=== PATIENT | female | born 1970 | race African-American/Black ===

== ENCOUNTER 2017-06-05 06:53 | Outpatient (CLI) | payer MEDICARE, MEDICAID | END 2017-06-05 06:54 | disposition home or self-care (01) | LOC: BICULT 06:53 | PROVIDERS: ATTEND Family Medicine | DX: K76.0 Fatty (change of) liver, not elsewhere classified (principal); Z90.49 Acquired absence of other specified parts of digestive tract | CPT/HCPCS: 76705 ==

== ENCOUNTER 2017-08-20 09:53 | Emergency (ER) | payer MEDICARE, MEDICAID ==
[2017-08-20 10:35] LABS: #Eosinphils 0.1 thou/uL (0.0-0.7); #Lymphocytes 2.3 thou/uL (1.20-3.40); #Monocytes 0.4 thou/uL (0.11-0.59); #Neutrophils 3.3 thou/uL (1.40-6.50); %Basophils 0.3 % (0.0-1.0); %Eosinophils 1.8 % (0.0-10.0); %Lymphocytes 37.2 % (21.0-51.0); %Monocytes 6.5 % (0.0-10.0); %Neutrophils 54.1 % (42.0-75.0); Hemoglobin 12.8 g/dL (12.0-16.0); Mean Corpuscular HGB CONC 33.3 g/dL (32.0-36.0); Mean Corpuscular Hemoglobin 31.9 pg (27.0-31.0); Mean Corpuscular Volume 95.9 fl (81.0-99.0); Mean Platelet Volume 7.8 fL (7.4-10.4); Platelet Count 250 thou/uL (130-400); RBC Distribution Width 11.7 % (11.5-14.5); Red Blood Cell (RBC) Count 4.02 mill/uL (4.20-5.40); White Blood Cell (WBC) Count 6.1 thou/uL (4.8-10.8)
[2017-08-20 10:56] LABS: ALT (SGPT) 9 U/L (8-55); AST (SGOT) 18 U/L (5-34); Albumin 3.8 g/dL (3.5-5.0); Alkaline Phosphatase 93 U/L (40-150); Anion Gap 13 mmol/L (10-20); BUN (Urea Nitrogen) 7 mg/dL (7.0-18.7); Bilirubin, Total 1.4 mg/dL (0.2-1.2); CK (CPK) 268 U/L (29-168); Calc. Creatinine Clearance 0 mL/min (70-130); Calcium 9.2 mg/dL (7.8-10.44); Carbon Dioxide 20 mmol/L (22-29); Chloride 106 mmol/L (98-107); Estimated GFR-MDRD Greater than 90; Globulin 3.4 g/dL (2.4-3.5); Glucose 78 mg/dL (70-105); Protein, Total 7.2 g/dL (6.0-8.3); Sodium 135 mmol/L (136-145)
[2017-08-20 11:05] LABS: CKMB 0.8 ng/mL (0-6.6)
[2017-08-20 11:12] LABS: Troponin I Less than 0.010 ng/mL (< 0.028)
[2017-08-20] MEDS ORDERED: Ondansetron PF 4 MG/2 ML Vial ONE ×3 (12:06→13:11)
--- NOTE | 2017-08-20 12:13 | CT ---
CT OF THE BRAIN WITHOUT CONTRAST: INDICATION: Chest pain, headache, and weakness. COMPARISON: Prior exam dated 10/28/16. FINDINGS: No acute infarct, hemorrhage, or hydrocephalus is present. Septum pellucidum and third ventricle are midline. Mastoid air cells are clear. There is mild paranasal sinus disease within the ethmoid air cells which is stable to the prior exam. IMPRESSION: 1. No acute intracranial abnormality. 2. Stable mild paranasal sinus disease. POS: [facility]
[2017-08-20 13:37] LABS: Troponin I Less than 0.010 ng/mL (< 0.028)
[2017-08-20] MEDS ORDERED: diphenhydrAMINE 50 MG/ML VIAL ONE (14:07)
[2017-08-20] MEDS ORDERED: Ketorolac Tromethamine 30 MG/ML VIAL ONE (14:07)
[2017-08-20] MEDS ORDERED: Acetaminophen 500 MG TAB ONE (14:07)
--- NOTE | 2017-08-24 15:33 | EKG ---
Test Reason : CHEST PAIN Blood Pressure : / mmHG Vent. Rate : 056 BPM Atrial Rate : 056 BPM P-R Int : 166 ms QRS Dur : 074 ms QT Int : 396 ms P-R-T Axes : 022 001 008 degrees QTc Int : 382 ms Sinus bradycardia Otherwise normal ECG Confirmed by ONEIL PERERA ([id number]), newspaper copy editor DALE GALVIN ([id number]) on 08/24/2017 3:33:36 PM Referred By: DILMA Confirmed By:ONEIL PERERA
== END 2017-08-20 14:38 | disposition home or self-care (01) ==
LOC: ERS 09:53
DX: R51 Headache (principal); R07.9 Chest pain, unspecified; R11.2 Nausea with vomiting, unspecified; I10 Essential (primary) hypertension; E11.9 Type 2 diabetes mellitus without complications; K21.9 Gastro-esophageal reflux disease without esophagitis; F32.9 Major depressive disorder, single episode, unspecified; Z87.891 Personal history of nicotine dependence; Z79.82 Long term (current) use of aspirin; Z79.899 Other long term (current) drug therapy; Z86.73 Personal history of transient ischemic attack (TIA), and cerebral infarction without residual deficits
CPT/HCPCS: 36415; 70450; 80053; 82550; 82553; 84484; 85025; 85379; 93005; 94760; J1200; J1885; J2270; J2405

== ENCOUNTER 2017-11-29 08:48 | Outpatient (CLI) | payer MEDICARE, MEDICAID | END 2017-11-29 08:49 | disposition home or self-care (01) | LOC: BICMAMMO 08:48 | PROVIDERS: ATTEND Family Medicine | DX: Z12.31 Encounter for screening mammogram for malignant neoplasm of breast (principal) | CPT/HCPCS: 77063; 77067 ==

== ENCOUNTER 2018-01-21 14:39 | Emergency (ER) | payer MEDICAID, MEDICARE ==
[2018-01-21 15:51] LABS: #Basophils 0.1 thou/uL (0.0-0.2); #Eosinphils 0.1 thou/uL (0.0-0.7); #Lymphocytes 2.1 thou/uL (1.20-3.40); #Monocytes 0.4 thou/uL (0.11-0.59); #Neutrophils 3.5 thou/uL (1.40-6.50); %Basophils 1.3 % (0.0-1.0); %Eosinophils 2.2 % (0.0-10.0); %Lymphocytes 34.1 % (21.0-51.0); %Monocytes 6.6 % (0.0-10.0); %Neutrophils 55.9 % (42.0-75.0); Hemoglobin 12.9 g/dL (12.0-16.0); Mean Corpuscular HGB CONC 34.7 g/dL (32.0-36.0); Mean Platelet Volume 7.6 fL (7.4-10.4); Platelet Count 265 thou/uL (130-400); RBC Distribution Width 12.2 % (11.5-14.5); Red Blood Cell (RBC) Count 3.91 mill/uL (4.20-5.40); White Blood Cell (WBC) Count 6.3 thou/uL (4.8-10.8)
[2018-01-21 15:58] LABS: PTT 31.6 SEC (22.9-36.1); Prothrombin Time 13.5 SEC (12.0-14.7)
[2018-01-21 16:14] LABS: ALT (SGPT) 11 U/L (8-55); AST (SGOT) 17 U/L (5-34); Albumin 3.8 g/dL (3.5-5.0); Alkaline Phosphatase 92 U/L (40-150); Anion Gap 9 mmol/L (10-20); BUN (Urea Nitrogen) 9 mg/dL (7.0-18.7); Bilirubin, Total 0.7 mg/dL (0.2-1.2); Calc. Creatinine Clearance 0 mL/min (70-130); Calcium 9.2 mg/dL (7.8-10.44); Carbon Dioxide 23 mmol/L (22-29); Chloride 109 mmol/L (98-107); Estimated GFR-MDRD Greater than 90; Globulin 3.6 g/dL (2.4-3.5); Glucose 68 mg/dL (70-105); Potassium 4.3 mmol/L (3.5-5.1); Protein, Total 7.4 g/dL (6.0-8.3); Sodium 137 mmol/L (136-145)
--- NOTE | 2018-01-21 16:15 | CT ---
HEAD CT WITHOUT CONTRAST 01/21/18 COMPARISON: 08/20/17 HISTORY: Headache, nausea and dizziness. TECHNIQUE: Serial axial CT imaging obtained at 5 mm intervals from vertex through skull base without contrast. FINDINGS: There is no intracranial hemorrhage, midline shift, mass effect or ventricular enlargement . There is no displaced calvarial fracture. Stable cyst noted in the region of the pineal gland, unchanged when compared to multiple prior examin ations. IMPRESSION: No acute findings. POS: [facility]
[2018-01-21] MEDS ORDERED: Metoclopramide HCl 10 MG/2 ML VIAL ONE (16:32)
[2018-01-21] MEDS ORDERED: diphenhydrAMINE 12.5 MG/5 ML UDCUP ONE (16:32)
[2018-01-21] MEDS ORDERED: diphenhydrAMINE 50 MG/ML VIAL ONE (16:33)
[2018-01-21 18:20] LABS: Bilirubin Negative (Negative); Blood, Urine Negative (Negative); Clarity CLEAR (Clear); Glucose, Urine (Dipstick) Negative (Negative); Leukocyte Negative (Negative); Nitrite Negative (Negative); Protein, Urine (Dipstick) Negative (Neg-Trace); Specific Gravity, Urine 1.011 (1.002-1.036)
[2018-01-21 18:30] LABS: Amphetamine Not Detected (NotDetected); Barbiturates Screen Not Detected (NotDetected); Benzodiazepine Screen Not Detected (NotDetected); Cocaine Metabolite Screen Not Detected (NotDetected); Medtox Control Line Valid? VALID (VALID); Medtox Reader # READER 1; Methadone Not Detected (NotDetected); Methamphetamine Not Detected (NotDetected); Opiate Screen Not Detected (NotDetected); Oxycodone Screen Not Detected (NotDetected); Phencyclidine (PCP) Not Detected (NotDetected); THC/Cannabinoid Screen Not Detected (NotDetected); Tricyclic Screen Not Detected (NotDetected)
[2018-01-21] MEDS ORDERED: Ketorolac Tromethamine 30 MG/ML VIAL ONE (19:33)
== END 2018-01-21 19:55 | disposition home or self-care (01) ==
LOC: ERS 14:39
DX: R51 Headache (principal); Z86.73 Personal history of transient ischemic attack (TIA), and cerebral infarction without residual deficits; I10 Essential (primary) hypertension; E11.9 Type 2 diabetes mellitus without complications; K21.9 Gastro-esophageal reflux disease without esophagitis; F32.9 Major depressive disorder, single episode, unspecified; Z87.891 Personal history of nicotine dependence; Z79.899 Other long term (current) drug therapy; Z79.82 Long term (current) use of aspirin
CPT/HCPCS: 70450; 80053; 80306; 81003; 85025; 85610; 85730; 93005; 96361; 96374; 96375; J1200; J1885; J2765

== ENCOUNTER 2019-03-07 21:19 | Emergency (ER) | payer MEDICARE ==
[~2019-03-07 21:19] MED LIST: ISOVUE-370 76%-LOCM 1 ML ONE
[2019-03-07] MEDS ORDERED: Mag-Al 1200 mg/1200 mg/30 ML UDCUP ONE (22:03)
[2019-03-07] MEDS ORDERED: Lidocaine Viscous Sol 2% 15 ml UD Cup ONE (22:03)
[2019-03-07 22:06] LABS: #Basophils 0.1 thou/uL (0.0-0.2); #Eosinphils 0.2 thou/uL (0.0-0.7); #Monocytes 0.5 thou/uL (0.11-0.59); #Neutrophils 3.4 thou/uL (1.40-6.50); %Basophils 1.4 % (0.0-1.0); %Eosinophils 2.7 % (0.0-10.0); %Lymphocytes 41.7 % (21.0-51.0); %Monocytes 7.3 % (0.0-10.0); Hemoglobin 12.3 g/dL (12.0-16.0); Mean Corpuscular HGB CONC 34.5 g/dL (32.0-36.0); Mean Corpuscular Hemoglobin 32.4 pg (27.0-31.0); Mean Platelet Volume 7.8 fL (7.4-10.4); Platelet Count 291 thou/uL (130-400); RBC Distribution Width 12.1 % (11.5-14.5); White Blood Cell (WBC) Count 7.2 thou/uL (4.8-10.8)
--- NOTE | 2019-03-07 22:09 | RAD ---
XR Chest 1 View Portable HISTORY: Chest pain x3 days COMPARISON: 10/28/2016 study FINDINGS: Heart size and mediastinum are within normal limits. The lungs are clear of infiltrates. No significant bony findings. IMPRESSION: No active intrathoracic disease.
[2019-03-07 22:28] LABS: ALT (SGPT) 10 U/L (8-55); AST (SGOT) 18 U/L (5-34); Albumin 3.7 g/dL (3.5-5.0); Alkaline Phosphatase 84 U/L (40-150); Anion Gap 10 mmol/L (10-20); BUN (Urea Nitrogen) 10 mg/dL (7.0-18.7); Bilirubin, Total 0.6 mg/dL (0.2-1.2); Calc. Creatinine Clearance 0 mL/min (70-130); Carbon Dioxide 24 mmol/L (22-29); Chloride 104 mmol/L (98-107); Estimated GFR-MDRD Greater than 90; Globulin 3.4 g/dL (2.4-3.5); Glucose 92 mg/dL (70-105); Lipase 141 U/L (8-78); Potassium 4.1 mmol/L (3.5-5.1); Protein, Total 7.1 g/dL (6.0-8.3); Sodium 134 mmol/L (136-145)
[2019-03-07] MEDS ORDERED: Ondansetron PF 4 MG/2 ML Vial ONE (22:39)
[2019-03-07] MEDS ORDERED: Ketorolac Tromethamine 30 MG/ML VIAL ONE (23:20)
--- NOTE | 2019-03-07 23:22 | CT ---
CT Abdomen Pelvis W Con HISTORY: Abdominal pain chills. History of cholecystectomy hysterectomy appendectomy and gastric bypa ss. COMPARISON: 02/17/2015 exam. FINDINGS: The lung bases are clear of confluent infiltrates. There is atelectatic change present. The liver, spleen and pancreas regions appear unremarkable. This examination is obtained in more of a ny angiographic phase. The gallbladder is been removed. Gastric bypass changes are seen. Right and left adrenal glands and right and left kidneys are normal in appearance. There is no signif icant periaortic or mesenteric lymphadenopathy. CT of pelvis performed with contrast: Suggestion of some bladder wall thickening raising the possibil ity of a cystitis. Bladder is not well distended. There is no evidence of adenopathy or mass. No free fluid. IMPRESSION: Suggestion of some possible bladder wall thickening. Both gastric bypass and cholecystect iliana change.
== END 2019-03-07 23:51 | disposition home or self-care (01) ==
LOC: ERS 21:19
DX: R07.89 Other chest pain (principal); R10.13 Epigastric pain; R11.0 Nausea; K21.9 Gastro-esophageal reflux disease without esophagitis; I10 Essential (primary) hypertension; F32.9 Major depressive disorder, single episode, unspecified; Z86.73 Personal history of transient ischemic attack (TIA), and cerebral infarction without residual deficits
CPT/HCPCS: 71045; 74177; 80053; 83690; 84484; 85025; 93005; 96374; 96375; J1885; J2405; Q9966

== ENCOUNTER 2019-03-15 15:55 | Emergency (ER) | payer MEDICARE ==
--- NOTE | 2019-03-15 17:18 | RAD ---
RIGHT KNEE FOUR VIEWS: Date: 03-15-19 Comparison: None. History: Pain for one week. FINDINGS: No displaced fracture or dislocation. No significant knee joint effusion. IMPRESSION: No acute osseous abnormality. POS: [facility]
[2019-03-15] MEDS ORDERED: Ketorolac Tromethamine 60 MG/2 ML VIAL ONE (17:22)
[2019-03-15] MEDS ORDERED: Ondansetron ODT 4 MG TAB ONE (17:49)
--- NOTE | 2019-03-15 18:47 | ULT ---
RIGHT LOWER EXTREMITY VENOUS DOPPLER: Date: 03-15-19 Provided Clinical History: Pain. FINDINGS: Grayscale and color doppler sonography with spectral analysis was performed of the right common femor al, femoral, popliteal, posterior tibial, greater saphenous and profunda femoral veins demonstrating a normal sonographic appearance to each. IMPRESSION: No sonographic evidence for right lower extremity deep venous thrombosis. POS: [facility]
== END 2019-03-15 18:06 | disposition home or self-care (01) ==
LOC: ERS 15:55
DX: M79.661 Pain in right lower leg (principal); I10 Essential (primary) hypertension; E11.9 Type 2 diabetes mellitus without complications; K21.9 Gastro-esophageal reflux disease without esophagitis; F32.9 Major depressive disorder, single episode, unspecified; Z86.73 Personal history of transient ischemic attack (TIA), and cerebral infarction without residual deficits; Z79.82 Long term (current) use of aspirin
CPT/HCPCS: 96372; J1885; Q0162

== ENCOUNTER 2019-03-19 18:40 | Emergency (ER) | payer MEDICARE ==
[2019-03-19] MEDS ORDERED: Ondansetron ODT 4 MG TAB ONE (19:08)
[2019-03-19] MEDS ORDERED: HYDROcodone/Acetaminophen 5/325 mg Tablet ONE (19:44)
[2019-03-19] MEDS ORDERED: Ketorolac Tromethamine 30 MG/ML VIAL ONE (19:44)
--- NOTE | 2019-03-19 20:10 | RAD ---
Exam:Right knee 4 views HISTORY: Pain. Tightness. Erythema. History of blood clots. Swelling. COMPARISON: 03/15/2019 FINDINGS: No fracture. No cortical irregularity. No periosteal reaction. Joint spaces are preserved. No joint effusion. IMPRESSION: No acute osseous abnormalities. No significant interval change.
== END 2019-03-19 21:08 | disposition home or self-care (01) ==
LOC: ERS 18:40
DX: M25.561 Pain in right knee (principal); I10 Essential (primary) hypertension; E11.9 Type 2 diabetes mellitus without complications; K21.9 Gastro-esophageal reflux disease without esophagitis; F32.9 Major depressive disorder, single episode, unspecified; Z86.73 Personal history of transient ischemic attack (TIA), and cerebral infarction without residual deficits
CPT/HCPCS: 96372; J1885; Q0162

== ENCOUNTER 2019-03-21 20:18 | Observation (INO) | payer MEDICARE ==
[2019-03-21] MEDS ORDERED: Ondansetron PF 4 MG/2 ML Vial ONE (20:49)
[2019-03-21] MEDS ORDERED: Morphine 4 MG/ML VIAL ONE (20:49)
[2019-03-21 20:53] LABS: #Basophils 0.1 thou/uL (0.0-0.2); #Eosinphils 0.2 thou/uL (0.0-0.7); #Monocytes 0.5 thou/uL (0.11-0.59); %Basophils 1.2 % (0.0-1.0); %Eosinophils 2.8 % (0.0-10.0); %Lymphocytes 38.1 % (21.0-51.0); %Monocytes 6.8 % (0.0-10.0); %Neutrophils 51.2 % (42.0-75.0); Hemoglobin 11.6 g/dL (12.0-16.0); Mean Corpuscular Hemoglobin 31.5 pg (27.0-31.0); Mean Corpuscular Volume 92.7 fL (78.0-98.0); Mean Platelet Volume 7.7 fL (7.4-10.4); Platelet Count 287 thou/uL (130-400); RBC Distribution Width 12.1 % (11.5-14.5); Red Blood Cell (RBC) Count 3.69 mill/uL (4.20-5.40); White Blood Cell (WBC) Count 7.8 thou/uL (4.8-10.8)
--- NOTE | 2019-03-21 21:11 | RAD ---
XR Chest Pa Lat STANDARD HISTORY: Midsternal chest pain COMPARISON: 09/08/2014 study FINDINGS: Heart size and mediastinum are within normal limits. The lungs are clear of infiltrates. No bony findings. IMPRESSION: No active intrathoracic disease.
[2019-03-21 21:17] LABS: ALT (SGPT) 10 U/L (8-55); AST (SGOT) 18 U/L (5-34); Albumin 3.6 g/dL (3.5-5.0); Alkaline Phosphatase 77 U/L (40-110); Anion Gap 11 mmol/L (10-20); BUN (Urea Nitrogen) 12 mg/dL (7.0-18.7); Bilirubin, Total 0.4 mg/dL (0.2-1.2); Calc. Creatinine Clearance 0 mL/min (70-130); Calcium 8.8 mg/dL (7.8-10.44); Carbon Dioxide 21 mmol/L (22-29); Chloride 108 mmol/L (98-107); Estimated GFR-MDRD Greater than 90; Globulin 3.4 g/dL (2.4-3.5); Glucose 90 mg/dL (70-105); Lipase 171 U/L (8-78); Potassium 3.9 mmol/L (3.5-5.1); Sodium 136 mmol/L (136-145)
[2019-03-21] MEDS ORDERED: Nitroglycerin 2% Ointment 1 INCH/1 GM Packet ONE (21:32)
--- NOTE | 2019-03-21 21:34 | CT ---
CT Brain WO Con HISTORY: Fall with head injury. Headache. COMPARISON: 01/21/2018 study. FINDINGS: The ventricular and cisternal system is within normal limits. There are no signs of intrace rebral hemorrhage or extra-axial fluid collections. There is bilateral ethmoid air cell mucosal disease. IMPRESSION: No acute intracranial abnormalities.
[2019-03-21 21:39] LABS: Bacteria/HPF None Seen HPF (None Seen); Bilirubin Negative (Negative); Blood, Urine 1+ (Negative); Clarity Clear (Clear); Glucose, Urine (Dipstick) Normal (Negative); Leukocyte Negative Leu/uL (Negative); Nitrite Negative (Negative); Protein, Urine (Dipstick) Negative (Neg-Trace); RBC/HPF 0-3 HPF (0-3); Squamous Epithelial 0-3 HPF (0-3); Urobilinogen Normal mg/dL (Less than 2); WBC/HPF 0-3 HPF (0-3)
[2019-03-21 21:39] LABS: CKMB 1.3 ng/mL (0-6.6)
--- NOTE | 2019-03-21 22:13 | PDOC.FPRHP ---
- History of Present Illness Chief Complaint: Chest Pain History of Present Illness: Pt is a 49 yo female with PMH significant for labial BP's, HTN, HLD, GERD, Hemorrhagic stroke w/ R sided weakness, L sided facial droop, and MDD who presents for chest pain beginning at 1900 on 03/21/19. Pt is a poor historian. Pt states the pain was substernal, pressure in nature, no radiation, and alleviated with the nitro upon arrival to ED. She states pain was 15/10 then 6/ 10 with morphine. She was at rest when she felt the pain, became diaphoretic, and nauseated. Nausea did not alleviate with nitro,aspirin. She reports a pre- syncopal episode when standing from her couch. At this time EMS was called. Cardiac Hx: negative cardiac cath 2014, quit smoking 5 years ago She states she has had labial blood pressures with some recent blood pressures in the 200's/100's. But due to hypotensive episodes she states she no longer takes anti-hypertensives. She denies history of cardiac pathology. She did require a holter monitor which was WNL due to subjective palpitations. In the ED vitals were stable, EKG was WNL. Her trop was 0.031, CK-MB 1.3. Her chest pain alleviated but was still a 6/10 wit intervention although pt was laughing with family. She did have an pre-syncopal episode after receiving morphine. Head CT revealed no acute intracranial processes. - Allergies/Adverse Reactions Allergies Allergy/AdvReac Type Severity Reaction Status Date / Time amoxicillin Allergy Rash Verified 03/22/19 00:33 - Home Medications Medication Instructions Recorded Confirmed Type Aspirin Chewable [Aspirin Chewable 81 mg PO DAILY 05/24/13 03/22/19 History Tablet] Linaclotide [Linzess] 290 mcg PO DAILY 03/22/19 03/22/19 History Lisinopril 5 mg PO DAILY 03/22/19 03/22/19 History Polyethylene Glycol 3350 [Miralax] 17 gm PO DAILY PRN 03/22/19 03/22/19 History Sertraline HCl 25 mg PO DAILY 03/22/19 03/22/19 History busPIRone HCl [Buspirone HCl] 10 mg PO BID 03/22/19 03/22/19 History - History PMHx: Labial BP's, HTN, HLD, GERD, Hemorrhagic stroke w/ R sided weakness, L sided facial droop, and MDD, Colonoscopy 2014, EGD 2014, Neg Cardiac Cath 2014 PSHx: Appendectomy, Cholecystectomy, Gastric Sleeve, Hysterectomy FHx: Mother - cancer; Father - cancer, HTN, DM, Brother - esophageal cancer, hypothyroid Social: Quit smoking 5 years ago, drinks 6 pack of beer on weekends, denies drug use, lives with 13 yo daughter - Review of Systems General: denies: fever/chills, weight/appetite/sleep changes, night sweats, fatigue Eyes: denies: eye pain, vision changes ENT: denies: nasal congestion, rhinorrhea Respiratory: reports: shortness of breath. denies: cough, congestion Cardiovascular: reports: chest pain. denies: palpitation, edema, orthopnea Gastrointestinal: reports: nausea, constipation (Chronic miralax use), GI bleeding (hx of active hemorrhoids). denies: vomiting, diarrhea, abdominal pain Genitourinary: denies: incontinence, dysuria, polyuria Skin: denies: rashes, lesions, jaundice Musculoskeletal: reports: swelling. denies: pain, tenderness, arthritis/ arthralgias (Swelling in the R knee. Has an appt with ortho) Neurological: denies: numbness, seizure, weakness - Vital signs BP: [130/90] HR: [72] RR: [18] Tmax: [98.8] Pox: [97]% on [RA] Wt: [90.01 kg] - Physical Exam Constitutional: NAD, awake, alert and oriented, well developed -Constitutional: Pt is laughing with family at bedside. HEENT: normocephalic and atraumatic, EOMI Neck: FROM, trachea midline Heart: RRR, normal S1/S2, pulses present, no edema Lungs: CTAB, no respiratory distress, good air movement Abdomen: soft, non-tender, bowel sounds present, no masses/distention Musculoskeletal: normal structure, normal tone Neurological: no focal deficit (R sided weakness compared to L but 5/5 strength ; mild L sided facial droop) Skin: no rash/lesions -Skin: pale conjunctiva Heme/Lymphatic: no unusual bruising or bleeding, no purpura, no petechia Psychiatric: normal mood and affect FMR H&P: Results - Labs Result Diagrams: 03/22/19 02:26 03/22/19 02:26 Lab results: WBC 7.8 thou/uL (4.8-10.8) 03/21/19 20:31 Hgb 11.6 g/dL (12.0-16.0) L 03/21/19 20:31 Hct 34.2 % (36.0-47.0) L 03/21/19 20:31 MCV 92.7 fL (78.0-98.0) 03/21/19 20:31 Plt Count 287 thou/uL (130-400) 03/21/19 20:31 Neutrophils % 51.2 % (42.0-75.0) 03/21/19 20:31 Sodium 136 mmol/L (136-145) 03/21/19 20:31 Potassium 3.9 mmol/L (3.5-5.1) 03/21/19 20:31 Chloride 108 mmol/L (98-107) H 03/21/19 20:31 Carbon Dioxide 21 mmol/L (22-29) L 03/21/19 20:31 BUN 12 mg/dL (7.0-18.7) 03/21/19 20:31 Creatinine 0.74 mg/dL (0.6-1.1) 03/21/19 20:31 Glucose 90 mg/dL (70-105) 03/21/19 20:31 Calcium 8.8 mg/dL (7.8-10.44) 03/21/19 20:31 Total Bilirubin 0.4 mg/dL (0.2-1.2) 03/21/19 20:31 AST 18 U/L (5-34) 03/21/19 20:31 ALT 10 U/L (8-55) 03/21/19 20:31 Alkaline Phosphatase 77 U/L (40-110) 03/21/19 20:31 CK-MB (CK-2) 1.3 ng/mL (0-6.6) 03/21/19 20:31 Serum Total Protein 7.0 g/dL (6.0-8.3) 03/21/19 20:31 Albumin 3.6 g/dL (3.5-5.0) 03/21/19 20:31 Lipase 171 U/L (8-78) H 03/21/19 20:31 Urine Ketones Negative mg/dL (Negative) 03/21/19 21:19 Urine Blood 1+ (Negative) A 03/21/19 21:19 Urine Nitrite Negative (Negative) 03/21/19 21:19 Ur Leukocyte Esterase Negative Katie/uL (Negative) 03/21/19 21:19 Urine RBC 0-3 HPF (0-3) 03/21/19 21:19 Urine WBC 0-3 HPF (0-3) 03/21/19 21:19 Ur Squamous Epith Cells 0-3 HPF (0-3) 03/21/19 21:19 Urine Bacteria None Seen HPF (None Seen) 03/21/19 21:19 - EKG Interpretation EKG: EKG revealed NSR, no ST segment changes, T wave abnormalities. FMR H&P: A/P - Problem List (1) Chest pain Current Visit: Yes Status: Acute Code(s): R07.9 - CHEST PAIN, UNSPECIFIED (2) History of hypertension Current Visit: Yes Status: Acute Code(s): Z86.79 - PERSONAL HISTORY OF OTHER DISEASES OF THE CIRCULATORY SYSTEM (3) Depression Current Visit: Yes Status: Acute Code(s): F32.9 - MAJOR DEPRESSIVE DISORDER , SINGLE EPISODE, UNSPECIFIED (4) History of cerebrovascular accident (CVA) with residual deficit Current Visit: No Status: Chronic Code(s): I69.30 - UNSPECIFIED SEQUELAE OF CEREBRAL INFARCTION (5) GERD (gastroesophageal reflux disease) Current Visit: No Status: Acute Code(s): K21.9 - GASTRO-ESOPHAGEAL REFLUX DISEASE WITHOUT ESOPHAGITIS (6) Obesity (BMI 30-39.9) Current Visit: No Status: Chronic Code(s): E66.9 - OBESITY, UNSPECIFIED (7) Normocytic anemia Current Visit: Yes Status: Acute Code(s): D64.9 - ANEMIA, UNSPECIFIED - Plan Pt is a 49 yo female with PMH of Labial BP's, HTN, HLD, GERD, Hemorrhagic stroke w/ R sided weakness, L sided facial droop, and MDD presenting with chest pain, elevated troponin, concerning onset of symptoms and PMH. # Chest Pain # Elevated Troponin Atypical vs Typical - chest pain at rest, substernal pressure, alleviated with morphine/nitro/aspirin. She did become diaphoretic, nauseated. Although pt has compelling history on exam pt did not appear to be under any distress, clinically stable, laughing w/ family at bedside. Pt described episode of pre- syncope. Pt has hx of labial blood pressure but WNL in emergency department w/ o anti-hypertensives. Pt cardiac cath in 2014 revealed no significant CAD. Hx of GERD requiring gastric sleeve. Hx of smoking - quit 5 years ago. Trop 0.031 mildly elevated 1 hour after initial chest pain, CK-MB WNL, EKG WNL. - trend trops - Cards consult in morning, appreciate recs. Will consult cardiology tonight if pt has acute elevation in trops - Stress test scheduled for morning - Echo pending - aspirin administered, give daily - Lipid panel pending # HTN Pt does not take BP meds. States she discontinued due to hypotensive episodes but has BP's 200's/100's. In Jul 2018 pt was started on Lisinopril 5 mg for an episode of elevated BP's noted at home 200's/100's, but were WNL at urgent clinic. Pt's BP readings in [facility] clinic have been WNL. - Vitals stable in ED - consider restarting BP meds if necessary before discharge. Pt currently has morphine prn for pain. # GERD Hx of gastric sleeve - no currently taking medication # Depression/Anxiety - continue home meds # Constipation - continue miralax # Hemorroids Pt states she has bright red blood per rectum. Worked up by GI within last year w/ colonoscopy which revealed hemorroids. She states burning sensation with BM's even if BM is liquid. - work up as outpt if pt continues to describe pain - Hgb 11.6 # Normocytic Anemia Hgb 11.6 - consider outpt workup # Elevated Lipase Lipase 170, elevated on previous visit. Pt denies abdominal pain, epigastric tenderness. Hx of gastric sleeve, cholecystectomy. Hx of pancreatitis. - no intervention at this time # Hx of CVA x 2, hemorrhagic stroke w/ R sided weakness, L sided facial droop Pt strength 5/5 bilaterally w/ mild decrease in strength on R side. - no acute changes per pt # R Knee Pain Pt is scheduled to be seen by ortho Diet: NPO midnight Fluids: None VTE Prophylaxis: lovenox Code Status: Full Dispo: Stable, admit pt to tele obs for ACS r/o. FMR H&P: Upper Level - Pertinent history 49 yo F w/ PMH of HTN, HLD, anxiety/MDD, GERD, h/o hemorrhagic CVA w/ rt sided residual deficits, prior tobacco abuse, h/o gastric sleeve, chronic headaches and prior episodes of atypical chest pain presented to [facility] for cc of cp. She is an extremely poor historian. Pt reports cp is left side of chest, pressure like in nature and associated with some sweating and nausea. Pain started at approx 1930 when pt was sitting on couch facetiming a family member. She reports her symptoms improved slightly with aspirin and nitro. No exacerbating symptoms. There is no radiation of pain. Of note, pt had similar symptoms in the past and nearly identical CC and history on office visit 08/21/2018 at which time she was sent to ER via ambulance for further evaluation. She is unsure of workup. If she or family can recall any workup I have requested those records. Additionally, pt had cardiac cath in 2014 after false positive nuc med study and was found to have entirely clean coronaries. She had a noted EF of 55-60% at that time. She frequently reports elevated BPs of up to 295/175; however, she has been normotensive or had low BPs in our clinic records dating all the way back to 2013. She also had urine metanephrine studies which were negative. On exam pt is sitting in bed comfortably and in no acute distress. - Pertinent findings ROS: As above PE: VS: Reviewed and WNL EKG: NSR w/o st or t wave changes. No q waves. Gen: NAD resting comfortably in bed. Laughing with family members present at bedside. Normal skin tone and color. No diaphoresis or any evidence of acute distress. HEENT: NCAT CV: RRR No mrg Resp: Cta b/l Abd: Soft NTND bsx4 Neuro: Chronic changes, no new focal deficit MSK: No reproducible chest tenderness to palpation Ext: No clubbing cyanosis or edema, Pulses 2+ throughout - Plan Date/Time: 03/21/192211 IDusty DO, have evaluated this patient and agree with findings/ plan as outlined by legal summer intern resident. Pertinent changes/additions are listed here. 1) Atypical chest pain: - pt initial troponin indeterminate, repeat indeterminate - will admit to tele obs and trend - AM stress and echo, consider cardiology consult as pt has significant risk factors - nitro prn for cp as well as morphine - differential includes ACS, vasospasm, takosubo CM, CM and numerous noncardiac causes. 2) GERD: h/o - pt reports pain is different from prior GERD pain - cont home medications 3) Elevated lipase: - has been elevated in past and thought to be 2/2 chronic gerd - asympotmatic on exam - rx for GERD and consider imaging if pt becomes symptomatic 4) Depression: -MDD, cont home medications 5) h/o CVA - no new deficits - no active bleed - ct head negative PCP: [facility] PPX: Lovenox Dispo: Stable, will admit to tele obs and trend troponins. Cont cardiac workup. Addendum - Attending - Attending Attestation Date/Time: 03/22/19 0705 I personally evaluated the patient and discussed the management with Dr. Thomson /Ada. I agree with the History, Examination, Assessment and Plan documented above with any addition or exceptions noted below. Patient here with chest pain, pressure, and nausea that began yesterday. Her cardiac enzymes are indeterminate and her EKG is normal. Will plan for stress testing today and further mgmt per that result.
[2019-03-21 23:39] LABS: Troponin I 0.059 ng/mL (< 0.028)
[2019-03-22] MEDS ORDERED: Acetaminophen 325 MG TAB PO PRN (00:28)
[2019-03-22 00:37] VITALS: BMI 38.7
[2019-03-22] MEDS: Morphine 4 MG/ML VIAL SLOW IVP PRN ×2 (00:46→06:49)
[2019-03-22] MEDS ORDERED: Lidocaine 2% Viscous Solution 10 ML, Aluminum & Magnesium Hydroxide 30 ML SSW SCH (01:30)
[2019-03-22 02:38] LABS: #Basophils 0.1 thou/uL (0.0-0.2); #Eosinphils 0.2 thou/uL (0.0-0.7); #Lymphocytes 2.5 thou/uL (1.20-3.40); #Monocytes 0.5 thou/uL (0.11-0.59); #Neutrophils 3.3 thou/uL (1.40-6.50); %Basophils 1.2 % (0.0-1.0); %Eosinophils 3.4 % (0.0-10.0); %Lymphocytes 38.7 % (21.0-51.0); %Neutrophils 49.7 % (42.0-75.0); Mean Corpuscular HGB CONC 33.4 g/dL (32.0-36.0); Mean Corpuscular Hemoglobin 31.7 pg (27.0-31.0); Mean Corpuscular Volume 94.9 fL (78.0-98.0); Mean Platelet Volume 7.7 fL (7.4-10.4); Platelet Count 267 thou/uL (130-400); RBC Distribution Width 12.2 % (11.5-14.5); Red Blood Cell (RBC) Count 3.79 mill/uL (4.20-5.40); White Blood Cell (WBC) Count 6.6 thou/uL (4.8-10.8)
[2019-03-22] MEDS ORDERED: Polyethylene Glycol 3350 17 GM Packet PO PRN (02:42)
[2019-03-22 03:31] LABS: Anion Gap 12 mmol/L (10-20); BUN (Urea Nitrogen) 11 mg/dL (7.0-18.7); Calc. Creatinine Clearance 130 mL/min (70-130); Calcium 8.7 mg/dL (7.8-10.44); Carbon Dioxide 21 mmol/L (22-29); Cardiac Risk 2.1 (Less than 4.5); Chloride 106 mmol/L (98-107); Cholesterol 188 mg/dl (< 200 Desired); Estimated GFR-MDRD Greater than 90; Glucose 88 mg/dL (70-105); HDL Cholesterol 89 mg/dL (>60 Neg Risk); LDL Cholesterol, Calculated 89 mg/dL; Potassium 3.6 mmol/L (3.5-5.1); Sodium 135 mmol/L (136-145); Triglycerides 52 mg/dL (Less than 150)
[2019-03-22 03:34] LABS: Troponin I 0.012 ng/mL (< 0.028)
[2019-03-22] MEDS: Ondansetron PF 4 MG/2 ML Vial SLOW IVP PRN ×3 (05:19→14:33)
[2019-03-22] MEDS: Nitroglycerin 2% Ointment 1 INCH/1 GM Packet TOP SCH ×3 (05:30→21:27)
[2019-03-22] MEDS ORDERED: Ondansetron PF 4 MG/2 ML Vial IVP SCH (07:30)
[2019-03-22] MEDS: Enoxaparin Sodium 40 MG/0.4 ML SYRINGE SC SCH (08:17)
[2019-03-22] MEDS: Famotidine 20 MG TAB PO SCH ×2 (09:00→21:28)
[2019-03-22] MEDS ORDERED: Non-Formulary Item 1 EACH (Linaclotide [Linzess] 290 MCG) PO SCH (09:00)
[2019-03-22] MEDS ORDERED: Regadenoson 0.4 MG/5 ML SYRINGE ONE (09:06)
[2019-03-22] MEDS: busPIRone HCl 10 MG TAB PO SCH ×2 (14:32→21:29)
[2019-03-22] MEDS: Aspirin 325 mg Enteric Coated Tablet PO SCH (14:32)
[2019-03-22] MEDS ORDERED: Ketorolac Tromethamine 30 MG/ML VIAL IVP PRN (16:32)
[2019-03-22] MEDS ORDERED: diphenhydrAMINE 50 MG/ML VIAL IVP SCH (17:15)
[2019-03-22] MEDS: Metoclopramide HCl 10 MG/2 ML VIAL IVP PRN (21:30)
[2019-03-23 05:30] LABS: #Basophils 0.1 thou/uL (0.0-0.2); #Eosinphils 0.2 thou/uL (0.0-0.7); #Lymphocytes 1.8 thou/uL (1.20-3.40); #Monocytes 0.4 thou/uL (0.11-0.59); #Neutrophils 2.3 thou/uL (1.40-6.50); %Basophils 1.2 % (0.0-1.0); %Eosinophils 4.3 % (0.0-10.0); %Lymphocytes 37.8 % (21.0-51.0); %Monocytes 8.8 % (0.0-10.0); %Neutrophils 47.9 % (42.0-75.0); Hemoglobin 11.2 g/dL (12.0-16.0); Mean Corpuscular HGB CONC 33.5 g/dL (32.0-36.0); Mean Corpuscular Hemoglobin 31.4 pg (27.0-31.0); Mean Corpuscular Volume 93.8 fL (78.0-98.0); Platelet Count 262 thou/uL (130-400); RBC Distribution Width 12.2 % (11.5-14.5); Red Blood Cell (RBC) Count 3.56 mill/uL (4.20-5.40); White Blood Cell (WBC) Count 4.8 thou/uL (4.8-10.8)
[2019-03-23] MEDS: Nitroglycerin 2% Ointment 1 INCH/1 GM Packet TOP SCH (06:00)
[2019-03-23 06:03] LABS: Anion Gap 8 mmol/L (10-20); BUN (Urea Nitrogen) 9 mg/dL (7.0-18.7); Calc. Creatinine Clearance 138 mL/min (70-130); Calcium 8.4 mg/dL (7.8-10.44); Carbon Dioxide 25 mmol/L (22-29); Chloride 106 mmol/L (98-107); Estimated GFR-MDRD Greater than 90; Glucose 85 mg/dL (70-105); Potassium 3.8 mmol/L (3.5-5.1); Sodium 135 mmol/L (136-145)
--- NOTE | 2019-03-23 06:04 | PDOC.FM ---
- Subjective Subjective: Tele monitoring overnight: no acute events. NSR 60-80's. Pt denies any current chest pain, SOB, or diaphoresis. Pt does not c/o nausea this morning. Awaiting second part of stress testing. - Objective MAR Reviewed: Yes Vital Signs & Weight: Vital Signs (12 hours) Temp Pulse Resp BP Pulse Ox 03/23/19 03:30 97.2 F L 61 16 124/58 L 98 03/22/19 21:26 98.3 F 68 17 109/56 L 96 Weight Weight 89.811 kg I&O: 03/21/19 03/22/19 03/23/19 06:59 06:59 06:59 Intake Total 220 1040 Output Total 700 Balance 220 340 Result Diagrams: 03/23/19 04:15 03/23/19 04:15 Phys Exam - Physical Examination Constitutional: NAD HEENT: PERRLA, moist MMs, sclera anicteric Neck: no nodes, no JVD, supple, full ROM Respiratory: no wheezing, no rales, no rhonchi, clear to auscultation bilateral Cardiovascular: RRR, no significant murmur, no rub Gastrointestinal: soft, non-tender, no distention, positive bowel sounds Musculoskeletal: no edema, pulses present Neurological: normal sensation, moves all 4 limbs residual L-sided facial droop from previous CVA. Strength 5/5 in all ext. Psychiatric: normal affect, A&O x 3 Skin: no rash, normal turgor, cap refill <2 seconds Dx/Plan (1) Atypical chest pain Code(s): R07.89 - OTHER CHEST PAIN Status: Acute (2) Depression Code(s): F32.9 - MAJOR DEPRESSIVE DISORDER, SINGLE EPISODE, UNSPECIFIED Status : Acute (3) History of hypertension Code(s): Z86.79 - PERSONAL HISTORY OF OTHER DISEASES OF THE CIRCULATORY SYSTEM Status: Acute (4) GERD (gastroesophageal reflux disease) Code(s): K21.9 - GASTRO-ESOPHAGEAL REFLUX DISEASE WITHOUT ESOPHAGITIS Status: Acute (5) History of cerebrovascular accident (CVA) with residual deficit Code(s): I69.30 - UNSPECIFIED SEQUELAE OF CEREBRAL INFARCTION Status: Chronic (6) Obesity (BMI 30-39.9) Code(s): E66.9 - OBESITY, UNSPECIFIED Status: Chronic (7) Status post bariatric surgery Status: Chronic - Plan Plan: Pt is a 49 yo female with PMH of labile BP's, HTN, HLD, GERD, Hemorrhagic stroke w/ R sided weakness, L sided facial droop, and MDD presenting with chest pain, elevated troponin, concerning onset of symptoms and PMH. 1. Atypical Chest Pain, with Elevated Troponin - Atypical chest pain vs GERD symptoms at rest, substernal pressure, alleviated with morphine/nitro/aspirin. She did become diaphoretic, nauseated. Although pt has compelling history on exam pt did not appear to be under any distress, clinically stable, laughing w/ family at bedside. Pt described episode of pre- syncope. Pt has hx of labile blood pressure but WNL in emergency department w/ o anti-hypertensives. - Pt cardiac cath in 2014 revealed no significant CAD. Hx of GERD requiring gastric sleeve. Hx of smoking - quit 5 years ago. - Trop 0.031--> 0.059--> 0.012--> 0.016, CK-MB WNL, EKG WNL. - Stress test, 2 days - Echo: EF 60-65%, Grade 2/3 diastolic dysfunction. No wall motion abnormalities. - ASA daily - Lipid panel: Tri 52, T Chol 188, LDL 89, HDH 89 2. HTN - Pt does not take BP meds. States she discontinued due to hypotensive episodes but has BP's 200's/100's. In Jul 2018 pt was started on Lisinopril 5 mg for an episode of elevated BP's noted at home 200's/100's, but were WNL at urgent clinic. Pt's BP readings in [facility] have been WNL. - Vitals stable in ED - consider restarting BP meds if necessary before discharge. Will hold for now. 3. GERD - Hx of gastric sleeve - not currently taking medication - Added pepcid 4. Depression/Anxiety - continue home meds 5. Constipation - continue miralax 6. Hemorroids - Pt states she has bright red blood per rectum. Worked up by GI within last year w/ colonoscopy which revealed hemorroids. She states burning sensation with BM's even if BM is liquid. - work up as outpt if pt continues to describe pain - Hgb 11.6 7. Normocytic Anemia - Hgb 11.6 - consider outpt workup 8. Elevated Lipase Lipase 170, elevated on previous visit. Pt denies abdominal pain, epigastric tenderness. Hx of gastric sleeve, cholecystectomy. Hx of pancreatitis. - no intervention at this time 9. Hx of CVA x 2, hemorrhagic stroke w/ R sided weakness, L sided facial droop - Pt strength 5/5 bilaterally w/ mild decrease in strength on R side. - no acute changes per pt 10. R Knee Pain Pt is scheduled to be seen by ortho Diet: HH Fluids: None VTE Prophylaxis: lovenox Code Status: Full Dispo: Stable, tele obs for ACS r/o. Addendum - Attending - Attending Attestation Date/Time: 03/23/19 1015 I personally evaluated the patient and discussed the management with Dr. Escobar. I agree with the History, Examination, Assessment and Plan documented above with any addition or exceptions noted below. Pt's stress test shows reversible ischemia. Consulting cardiology for further recommendations.
--- NOTE | 2019-03-23 09:06 | NM ---
EXAM: NM Cardiac Stress W EF WF PROVIDED CLINICAL HISTORY: Chest pain. History of CVA and hypertension. COMPARISON: 09/10/2014 FINDINGS: This examination was performed as a pharmacologic myocardial stress test after the administration of Lexiscan, the. There is a small area of mildly diminished uptake of radiotracer seen within the distal inferolateral left ventricular wall on the stress acquisition demonstrating mild reversibility on resting acquisition. Quantitative analysis also demonstrates suggestion of a reversible defect in the inferol ateral left ventricular wall. Gated images demonstrate normal ventricular wall motion and wall thickening. The calculated left ventricular ejection fraction is 83%. Calculated left ventricular eje ction fraction on the prior study was 64%. IMPRESSION: 1. Abnormal myocardial perfusion study with a mild reversible defect involving the distal inferolater al left ventricular wall suggesting ischemia. 2. Normal LVEF of 83%.
[2019-03-23] MEDS ORDERED: Nitroglycerin 4.9 GM Bottle SL PRN (09:45)
[2019-03-23] MEDS: Aspirin 325 mg Enteric Coated Tablet PO SCH (10:01)
[2019-03-23] MEDS: busPIRone HCl 10 MG TAB PO SCH (10:01)
[2019-03-23] MEDS: Metoclopramide HCl 10 MG/2 ML VIAL IVP PRN (10:02)
[2019-03-23] MEDS: Famotidine 20 MG TAB PO SCH (10:02)
[2019-03-23] MEDS: Enoxaparin Sodium 40 MG/0.4 ML SYRINGE SC SCH (10:02)
[2019-03-23 12:51] VITALS: BP 100/61; TEMP 98.1
--- NOTE | 2019-03-23 13:16 | CON ---
DATE OF CONSULTATION: 03/23/2019 INDICATION FOR CONSULTATION: A 49-year-old female with chest pain. HISTORY OF PRESENT ILLNESS: This 49-year-old female, who had a stress test in 2014 due to chest pain and this had been her second admission at that time, for which she then underwent stress testing, was found to have an abnormal stress test, and then, underwent cardiac catheterization, was found to have absolutely normal coronary arteries, not any plaque or anything, with normal-sized arteries. She does have a history of hypertension apparently and has not been taking medications at home. She said the blood pressures at home have been elevated, but according to the resident, her blood pressure in the clinic has been normal, and also here in the hospital, blood pressure remains normal. Her enzymes are negative for myocardial infarction. EKG when she arrived to the emergency room complaining of pain was still normal with no EKG changes. She apparently is disabled after having some type of strokes in the past. She said she has had some hemorrhagic strokes, but I do not see any significant indication on the images that I have been reviewing on the medical records that there was any significant stroke encountered in the past and she does seem to be pretty mobile. She has not had any disabling at this time CVA symptoms. She said she was sitting at home talking to somebody on the phone when she developed sudden a chest pain, and then, she said it became so intense. She tried to get up and walk it off. She really thought it was her reflux, but when she got up to try to walk around, she said she fell down because the pain was so bad. She did take some Tums, there was no relief, and then, 911 was called and she presented to the emergency room, and since that time, has undergone further evaluation. Stress testing at this time showed evidence of mild reversible ischemia in the distal inferolateral wall, somewhat similar to the same area that she had an abnormal stress test in 2014. In the interim, she has actually undergone a gastric sleeve procedure. She has had some type of procedure she says for her reflux. She has had the CVAs. She has constipation and hemorrhoids. Otherwise, she has been doing quite well, except she says her blood pressure has been poorly controlled at home. She said the blood pressure is extremely elevated and she is not taking any medications. PAST MEDICAL HISTORY: Significant for the gastric sleeve procedure, what she says is a CVA x1, and then, a TIA x1. She has constipation, hemorrhoids. She has had a cardiac catheterization. She has a history of hypertension. She has history of depression, obesity, and some anemia. REVIEW OF SYSTEMS: A 12-point review of systems is unremarkable. She occasionally says she has some blurred vision. She has occasional constipation, occasional nausea, and she says she has some weakness on the right side. She also has right knee pain. FAMILY HISTORY: Noncontributory. ALLERGIES: THERE WERE NO ALLERGIES KNOWN. MEDICATIONS: At this time include, 1. Tylenol. 2. MiraLAX. 3. Zofran. 4. 325 mg aspirin. 5. BuSpar. 6. DVT prophylaxis with Lovenox. 7. Pepcid. 8. Zoloft. 9. Reglan. 10. Benadryl as needed. 11. Nitroglycerin also p.r.n. PHYSICAL EXAMINATION: GENERAL: Reveals a well-developed, well-nourished, obese female. VITAL SIGNS: Her blood pressure is 110/73, heart rate is 63 and regular. She is afebrile. Respiratory rate is 18. HEENT: Shows the head to be normocephalic and atraumatic. NECK: Carotid pulses are present. There are no bruits. CHEST: Clear to auscultation without rales, rhonchi, or wheezing. CARDIOVASCULAR: Reveals a regular rate and rhythm. Normal S1, S2. There is no S3, S4. There are no significant murmurs, heaves, thrills, bruits, or rubs. ABDOMEN: Shows obesity with positive bowel sounds. Well-healed surgical incisions are noted. EXTREMITIES: Showed no clubbing, cyanosis, or edema. Pedal pulses are present. Popliteal pulses are present, and radial pulse also is present. NEUROLOGICAL: There are no gross focal motor deficits that I could elicit. She may have some mild weakness; however, I do not find anything gross. She is able to ambulate. LABORATORY DATA: Shows a potassium of 3.8, sodium was 135, BUN was 9 with a creatinine of 0.7. Blood sugar was 85. LDL was 89. Hemoglobin was 11.7, WBC of 4.8, and platelet count of 262,000. IMAGING STUDIES: EKG is unremarkable, which shows a normal sinus rhythm with no acute changes. Stress test is as noted above. IMPRESSION: 1. Middle-aged female with chest pain, some risk factors of coronary artery disease, who underwent a cardiac catheterization 4.5 half years ago for very similar symptoms and was found to have normal coronary arteries. At this time, since her enzymes remained negative, her EKG is unremarkable, and she has a negative cardiac catheterization 4.5 years ago, I would suggest that we continue to follow her and treat her medically, control the blood pressure and continue to monitor her as an outpatient. However, at this time, I do not see an indication to proceed with cardiac catheterization. 2. History of hypertension. I do not see any significant elevation of the blood pressure, and according to the residence, there has been no significant elevation of the blood pressure when she has been in the clinic, and we will continue to monitor this also. She may not need any blood pressure medications or at least a low dose of perhaps amlodipine or even a beta-iman, but the heart rate also has not been elevated and her heart rate has been in the 60s, so beta-blockers will not be a good choice for this lady, but perhaps a low dose of lisinopril or amlodipine if indicated. We suggest that she check her blood pressure cuff and bring that to the clinic when she is seen by the Family Practice to see whether or not she has an accurate blood pressure cuff and to see whether or not she can monitor her blood pressure at home. Thank you very much for the consultation of this lady. I will be more than happy to see her in the future, should she have any further problems. However, at this time, I believe she can follow up with her primary care physician, but if further issues arise, we will be more than happy to see her. Job ID: [id number]
--- NOTE | 2019-03-24 03:24 | DIS ---
DATE OF ADMISSION: 03/21/2019 DATE OF DISCHARGE: 03/23/2019 RESIDENT: Luz Escobar DO ADMITTING ATTENDING: Jasson Lew MD DISCHARGE ATTENDING: Dr. Mares CONSULTS: Cardiology, Dr. Walden, who cleared the patient for discharge as she thinks this is noncardiac in character. PROCEDURES PERFORMED: Nuclear medicine stress test showed a mild reversible defect distal to the inferior lateral left ventricular wall with EF of 83%. Dr. Walden cleared the patient for discharge. DIAGNOSES: 1. Atypical chest pain. 2. Hypertension. 3. Gastroesophageal reflux disease. 4. Depression/anxiety. 5. Constipation. 6. Hemorrhoids. 7. Normocytic anemia. 8. Elevated lactate. 9. History of cerebrovascular accident x2, hemorrhagic stroke with residual right-sided weakness and left facial droop. 10. Right knee pain. DISCHARGE MEDICATIONS: 1. Acetaminophen 650 mg p.o. q.4 hours p.r.n. for pain. 2. Aspirin 81 mg daily. 3. Buspirone 10 mg p.o. daily. 4. Pepcid 20 mg p.o. b.i.d. p.r.n. 5. Linzess 290 mcg p.o. daily. 6. Lisinopril 5 mg p.o. daily. 7. MiraLAX 17 g p.o. daily. 8. Sertraline 25 mg p.o. daily. HISTORY OF PRESENT ILLNESS/HOSPITAL COURSE: Ms. Andino is a 49-year-old female, who came in with chest pain. She underwent a nuclear medicine stress test and an echocardiogram. The transthoracic echo showed EF of 60% to 65% with grade 2/3 diastolic dysfunction. Stress test showed mild reversible defect distal to the inferior lateral left ventricular wall secondary to most likely ischemia, but the EF of 83%. Dr. Walden saw the patient in hospital saying that this is similar to the workup done in 2015, which led to them to do a catheterization. The catheterization was negative. She just want to followup outpatient in 3 to 4 weeks. The patient was stable. Chest pain gradually lessened and now is not present on discharge. DISPOSITION: Stable to home with alleviation of chest pain symptoms. DISCHARGE INSTRUCTIONS: 1. Location: Home. 2. Diet: Heart healthy. 3. Activity: As tolerated. 4. Followup: Follow up with primary care [facility] in 1 week time for blood pressure recheck. The patient was discharged on lisinopril 5 mg. Follow up with Dr. Walden in 3 to 4 weeks, cardiology. Job ID: [id number] [facility] HEALTHSanam
--- NOTE | 2019-03-28 12:16 | EKG ---
Test Reason : Blood Pressure : / mmHG Vent. Rate : 073 BPM Atrial Rate : 073 BPM P-R Int : 170 ms QRS Dur : 076 ms QT Int : 386 ms P-R-T Axes : 060 003 022 degrees QTc Int : 425 ms Normal sinus rhythm Normal ECG Confirmed by MIKEY MURPHY MD ([id number]), newspaper editor managing TYLOR KENNEDY ([id number]) on 03/28/2019 12:16:29 PM Referred By: Confirmed By:MIKEY MURPHY MD
--- NOTE | 2019-03-30 07:58 | EKG ---
Test Reason : MCNIGHT Blood Pressure : / mmHG Vent. Rate : 058 BPM Atrial Rate : 058 BPM P-R Int : 176 ms QRS Dur : 078 ms QT Int : 416 ms P-R-T Axes : 023 005 004 degrees QTc Int : 408 ms Sinus bradycardia Low voltage QRS Borderline ECG When compared with ECG of 21-MAR-2019 20:26, (Unconfirmed) Nonspecific T wave abnormality now evident in Anterior leads Confirmed by GERARD PASCUAL ([id number]) on 03/30/2019 7:58:21 AM Referred By: VENU Confirmed By:GERARD PASCUAL
== END 2019-03-23 14:48 | disposition home or self-care (01) ==
LOC: ERS 20:18 → INTOOBSV 21:55 → 2NO 21:55 → INTOOBSV 03-22 17:05 → OBSVTOIN 03-22 17:05
PROVIDERS: ADMIT Student in an Organized Health Care Education/Training Program; ATTEND Student in an Organized Health Care Education/Training Program
DX: R07.89 Other chest pain (principal); I10 Essential (primary) hypertension; K21.9 Gastro-esophageal reflux disease without esophagitis; F32.9 Major depressive disorder, single episode, unspecified; F41.9 Anxiety disorder, unspecified; E78.5 Hyperlipidemia, unspecified; K59.00 Constipation, unspecified; K64.9 Unspecified hemorrhoids; D64.9 Anemia, unspecified; M25.561 Pain in right knee; I69.351 Hemiplegia and hemiparesis following cerebral infarction affecting right dominant side; I69.392 Facial weakness following cerebral infarction; E66.9 Obesity, unspecified; Z68.38 Body mass index [BMI] 38.0-38.9, adult; Z87.891 Personal history of nicotine dependence; Z79.82 Long term (current) use of aspirin; Z79.899 Other long term (current) drug therapy; Z88.0 Allergy status to penicillin; Z98.84 Bariatric surgery status
CPT/HCPCS: 70450; 71046; 78452; 80048 ×2; 80053; 80061; 82553; 83690; 83880; 84443; 84484 ×4; 85025 ×3; 93005 ×2; 93017; 93306; 94760; 96372; 96374; 96375 ×2; 96376; 99285; A9500; G0378 ×2; 36415; 81003; 81015; 93010; J1650; J1885; J2270; J2405; J2765; J2785

== ENCOUNTER 2019-05-17 10:58 | Emergency (ER) | payer MEDICARE, MEDICAID ==
[2019-05-17] MEDS ORDERED: Ketorolac Tromethamine 30 MG/ML VIAL ONE (11:59)
[2019-05-17] MEDS ORDERED: Acetaminophen 500 MG TAB ONE (11:59)
--- NOTE | 2019-05-17 12:05 | RAD ---
4 views right knee: 05/17/2019 COMPARISON: 03/19/2019 HISTORY: Right knee pain for 2 months FINDINGS: No fracture or dislocation. No radiopaque foreign body or subcutaneous gas. IMPRESSION: No acute findings.
== END 2019-05-17 13:13 | disposition home or self-care (01) ==
LOC: ERS 10:58
DX: M25.561 Pain in right knee (principal); Z86.73 Personal history of transient ischemic attack (TIA), and cerebral infarction without residual deficits; I10 Essential (primary) hypertension; E11.9 Type 2 diabetes mellitus without complications; K21.9 Gastro-esophageal reflux disease without esophagitis; Z79.899 Other long term (current) drug therapy; Z79.82 Long term (current) use of aspirin
CPT/HCPCS: 96372; J1885

== ENCOUNTER 2019-06-20 08:57 | Emergency (ER) | payer MEDICARE, MEDICAID ==
--- NOTE | 2019-06-20 09:30 | RAD ---
EXAM: 4 views of the right knee HISTORY: Chronic knee swelling COMPARISON: None FINDINGS: No knee effusion is seen. There is no evidence of acute fracture or dislocation. No signifi cant degenerative changes are seen. No soft tissue swelling is present. IMPRESSION: No evidence of acute osseous abnormality.
[2019-06-20] MEDS ORDERED: Ondansetron ODT 4 MG TAB ONE (09:37)
[2019-06-20] MEDS ORDERED: Dexamethasone 10 MG/ML VIAL ONE (09:37)
[2019-06-20] MEDS ORDERED: traMADol HCl 50 MG TAB ONE (09:37)
[2019-06-20] MEDS ORDERED: Meclizine HCl 25 MG TAB ONE (09:37)
[2019-06-20] MEDS ORDERED: Acetaminophen 500 MG TAB ONE (09:37)
[2019-06-20] MEDS ORDERED: Ketorolac Tromethamine 60 MG/2 ML VIAL ONE (09:37)
[2019-06-20] MEDS ORDERED: diphenhydrAMINE 25 MG CAP ONE (09:37)
--- NOTE | 2019-06-20 09:38 | CT ---
EXAM: CT brain without contrast HISTORY: Dizziness and headaches COMPARISON: 03/13/2019 TECHNIQUE: Multiple contiguous axial images were obtained and a CT of the brain without contrast. FINDINGS: The brain is normal in morphology and attenuation without focal lesions or confluent areas of infarction. There is no evidence of hydrocephalus, intracranial hemorrhage, or extra-axial fluid collection. The calvarium and overlying soft tissues are unremarkable. Fluid is seen in the paranasal sinuses. Th e mastoid air cells are well aerated. IMPRESSION: No evidence of acute intracranial abnormality
== END 2019-06-20 10:59 | disposition home or self-care (01) ==
LOC: ERS 08:57
DX: R51 Headache (principal); M25.561 Pain in right knee; I10 Essential (primary) hypertension; E11.9 Type 2 diabetes mellitus without complications
CPT/HCPCS: 70450; 93005; 96372; J1100; J1885; J8597; Q0162; Q0163

== ENCOUNTER 2019-07-29 10:39 | Emergency (ER) | payer MEDICARE, MEDICAID ==
[2019-07-29] MEDS ORDERED: Magnesium 2 GM/50 ML BAG (IN WATER) ONE (11:17)
[2019-07-29] MEDS ORDERED: Acetaminophen 500 MG TAB ONE (11:17)
[2019-07-29] MEDS ORDERED: Metoclopramide HCl 10 MG/2 ML VIAL ONE (11:17)
[2019-07-29] MEDS ORDERED: diphenhydrAMINE 50 MG/ML VIAL ONE (11:17)
[2019-07-29 11:22] LABS: #Basophils 0.1 thou/uL (0.0-0.2); #Eosinphils 0.2 thou/uL (0.0-0.7); #Lymphocytes 1.8 thou/uL (1.20-3.40); #Monocytes 0.4 thou/uL (0.11-0.59); %Basophils 1.3 % (0.0-1.0); %Eosinophils 3.6 % (0.0-10.0); %Lymphocytes 32.4 % (21.0-51.0); %Monocytes 7.8 % (0.0-10.0); %Neutrophils 54.9 % (42.0-75.0); Hemoglobin 12.4 g/dL (12.0-16.0); Mean Corpuscular HGB CONC 32.5 g/dL (32.0-36.0); Mean Corpuscular Hemoglobin 30.3 pg (27.0-31.0); Mean Corpuscular Volume 93.4 fL (78.0-98.0); Mean Platelet Volume 8.1 fL (7.4-10.4); Platelet Count 257 thou/uL (130-400); RBC Distribution Width 12.2 % (11.5-14.5); Red Blood Cell (RBC) Count 4.07 mill/uL (4.20-5.40); White Blood Cell (WBC) Count 5.5 thou/uL (4.8-10.8)
--- NOTE | 2019-07-29 11:28 | CT ---
BRAIN CT WITHOUT IV CONTRAST: Date: 07/29/2019 HISTORY: Headache, syncopal episode. COMPARISON: 06/20/2019. FINDINGS: No focal mass or midline shift. No intra or extra-axial hemorrhage. Sinuses and mastoids are clear. IMPRESSION: No significant acute intracranial process. No mass or bleed. Mild sinus mucosal changes. POS: TPC
[2019-07-29 11:34] LABS: ALT (SGPT) 10 U/L (8-55); AST (SGOT) 18 U/L (5-34); Albumin 3.7 g/dL (3.5-5.0); Alkaline Phosphatase 82 U/L (40-110); Anion Gap 8 mmol/L (10-20); BUN (Urea Nitrogen) 8 mg/dL (7.0-18.7); Bilirubin, Total 0.9 mg/dL (0.2-1.2); Calc. Creatinine Clearance 0 mL/min (70-130); Calcium 8.7 mg/dL (7.8-10.44); Carbon Dioxide 27 mmol/L (22-29); Chloride 107 mmol/L (98-107); Estimated GFR-MDRD Greater than 90; Globulin 3.3 g/dL (2.4-3.5); Glucose 83 mg/dL (70-105); Sodium 138 mmol/L (136-145)
== END 2019-07-29 14:35 | disposition home or self-care (01) ==
LOC: ERS 10:39
DX: R51 Headache (principal); I10 Essential (primary) hypertension; E11.9 Type 2 diabetes mellitus without complications; K21.9 Gastro-esophageal reflux disease without esophagitis; Z79.82 Long term (current) use of aspirin; Z86.73 Personal history of transient ischemic attack (TIA), and cerebral infarction without residual deficits; Z79.899 Other long term (current) drug therapy
CPT/HCPCS: 70450; 80053; 84484; 85025; 93005; 96365; 96367; 96375; J1200; J2765; J3475

== ENCOUNTER 2019-09-02 19:30 | Outpatient (CLI) | payer MEDICARE, MEDICAID | END 2019-09-02 19:31 | disposition home or self-care (01) | LOC: SLEEPLAB 19:30 | PROVIDERS: ATTEND Student in an Organized Health Care Education/Training Program | DX: G47.33 Obstructive sleep apnea (adult) (pediatric) (principal); I10 Essential (primary) hypertension; G47.10 Hypersomnia, unspecified | CPT/HCPCS: 95810 ==

== ENCOUNTER 2019-12-04 16:11 | Inpatient (IN) | payer MEDICARE, MEDICAID, OTHER ==
--- NOTE | 2019-12-04 17:18 | RAD ---
RADIOGRAPH CHEST 1 VIEW: DATE: 12/04/2019 HISTORY: 49-year-old female with chest pain FINDINGS: There are no airspace densities, pulmonary edema, pneumothorax, or cardiomegaly. The lateral costophr enic angles are sharp. IMPRESSION: No acute cardiopulmonary findings.
[2019-12-04] MEDS ORDERED: Acetaminophen 500 MG TAB ONE ×2 (17:40)
[2019-12-04] MEDS ORDERED: Ondansetron ODT 4 MG TAB ONE (17:40)
[2019-12-04 18:06] LABS: #Basophils 0.1 thou/uL (0.0-0.2); #Eosinphils 0.3 thou/uL (0.0-0.7); #Lymphocytes 2.2 thou/uL (1.20-3.40); #Monocytes 0.4 thou/uL (0.11-0.59); #Neutrophils 4.7 thou/uL (1.40-6.50); %Basophils 0.7 % (0.0-1.0); %Eosinophils 3.3 % (0.0-10.0); %Lymphocytes 29.1 % (21.0-51.0); %Monocytes 5.4 % (0.0-10.0); %Neutrophils 61.4 % (42.0-75.0); Hemoglobin 12.2 g/dL (12.0-16.0); Mean Corpuscular HGB CONC 33.7 g/dL (32.0-36.0); Mean Corpuscular Hemoglobin 31.1 pg (27.0-31.0); Mean Corpuscular Volume 92.2 fL (78.0-98.0); Mean Platelet Volume 8.4 fL (7.4-10.4); Platelet Count 268 thou/uL (130-400); RBC Distribution Width 12.4 % (11.5-14.5); Red Blood Cell (RBC) Count 3.92 mill/uL (4.20-5.40); White Blood Cell (WBC) Count 7.6 thou/uL (4.8-10.8)
[2019-12-04 18:23] LABS: ALT (SGPT) 13 U/L (8-55); AST (SGOT) 20 U/L (5-34); Albumin 3.7 g/dL (3.5-5.0); Alkaline Phosphatase 83 U/L (40-110); Anion Gap 12 mmol/L (10-20); BUN (Urea Nitrogen) 13 mg/dL (7.0-18.7); Bilirubin, Total 0.5 mg/dL (0.2-1.2); Calc. Creatinine Clearance 0 mL/min (70-130); Calcium 8.9 mg/dL (7.8-10.44); Carbon Dioxide 21 mmol/L (22-29); Chloride 106 mmol/L (98-107); Estimated GFR-MDRD Greater than 90; Globulin 3.5 g/dL (2.4-3.5); Glucose 89 mg/dL (70-105); Lipase 135 U/L (8-78); Potassium 4.1 mmol/L (3.5-5.1); Protein, Total 7.2 g/dL (6.0-8.3); Sodium 135 mmol/L (136-145)
[2019-12-04] MEDS ORDERED: traMADol HCl 50 MG TAB ONE (18:26)
--- NOTE | 2019-12-04 19:36 | PDOC.FPRHP ---
- History of Present Illness Chief Complaint: Chest Pain, N/V History of Present Illness: 49 yo AA females comes in with c/c of N/V and chest pain. Nausea started 4-5 days ago. Been vomiting since then. Not keeping food down. Has been keeping fluids down some. Then yesterday sitting around and felt heart racing and having chest pain. [place] like chest pressure. Substernal chest pain. Reports dizziness and vision very blurry. Reports that it comes and goes. States that it last an hours. Dizziness happens wheter sitting or standing. Pt denies any numbness or tingling. Pt denies any radiation of pain to arms or neck. Pt states pain feels somewhat like past pancreatitis episodes. Pt denies any fever or chills. Denies any diarrhea or constipation. Denies any urinary sx's. Pt reports has chronic weakness on R. arm from past stroke. - Allergies/Adverse Reactions Allergies Allergy/AdvReac Type Severity Reaction Status Date / Time amoxicillin Allergy Rash Verified 12/05/19 00:22 - Home Medications Medication Instructions Recorded Confirmed Type Aspirin Chewable [Aspirin Chewable 81 mg PO DAILY 05/24/13 12/04/19 History Tablet] Acetaminophen [Tylenol Regular 650 mg PO Q4H PRN tab 03/22/19 12/04/19 Rx Strength] Esomeprazole Magnesium [NexIUM] 20 mg PO DAILY 12/04/19 12/04/19 History Fluticasone Propionate [Flonase 2 spray EA NARE DAILY 12/04/19 12/04/19 History Allergy Relief] Gabapentin [Neurontin] 100 mg PO BID 12/04/19 12/04/19 History Lisinopril 10 mg PO DAILY 12/04/19 12/04/19 History Omeprazole 10 mg PO DAILY 12/04/19 12/04/19 History Ondansetron HCl [Zofran] 4 mg PO Q6HR PRN 12/04/19 12/04/19 History traMADol HCl [Tramadol HCl] 50 mg PO Q6H PRN 12/04/19 12/04/19 History Comments: The above med list was reviewed with patients med list from clinic. The above medication list is correct other than pt recently was switched from famotidine to 20 mg of nexium. Pt also takes sertraline 25 mg and buspirone 10mg. - History PMHx: HTN, HLD, GERD, Hemorrhagic stroke w/ R sided weakness, L sided facial droop, and MDD, Colonoscopy 2015, EGD 2014, Neg Cardiac Cath 2014 PSHx: Appendectomy, Cholecystectomy, Gastric Sleeve, Hysterectomy FHx: Mother - cancer Lung (); Father - cancer Lung, HTN, DM, Brother - esophageal cancer, hypothyroid Social: Quit smoking a few years ago after stroke. Smoked for 10-15 years. Denies any drinking at this time, denies drug use, lives with 13 yo daughter - Review of Systems General: reports: weight/appetite/sleep changes (decreased appetite). denies: fever/chills, night sweats, fatigue Eyes: denies: eye pain, vision changes ENT: denies: nasal congestion, rhinorrhea Respiratory: denies: cough, congestion, shortness of breath, exercise intolerance Cardiovascular: reports: chest pain (described pain as pressure), palpitation ( reports heart racing fast). denies: edema, paroxysmal nocturnal dyspnea, orthopnea Gastrointestinal: reports: nausea, vomiting, abdominal pain. denies: diarrhea, GI bleeding Genitourinary: denies: incontinence, dysuria, polyuria, discharge Skin: denies: rashes, lesions, jaundice Musculoskeletal: reports: pain (reports chronic lower back pain). denies: tenderness, stiffness, swelling, arthritis/arthralgias Neurological: denies: numbness, seizure, weakness Psychological: reports: anxiety. denies: depression - Vital signs BP: [133/61] HR: 53 RR: [18] Tmax: [97.9] Pox: [98]% on [RA] Wt: [88.36 kg] - Physical Exam Constitutional: NAD, awake, alert and oriented, well developed HEENT: normocephalic and atraumatic, grossly normal vision, grossly normal hearing -HEENT: mucous membranes somewhat dry Neck: supple, FROM, no LAD, no JVD Chest: no-tender to palpation Heart: RRR, normal S1/S2, no murmurs/rubs/gallops, pulses present, no edema Lungs: CTAB, no respiratory distress, good air movement, no rales/rhonchi, no wheezing, no retractions Abdomen: soft, non-tender, bowel sounds present, no masses/distention, no hernias Musculoskeletal: normal structure, normal tone, ROM grossly normal Neurological: no focal deficit, normal sensation Skin: no rash/lesions -Skin: cap refill 3-4 seconds Heme/Lymphatic: no unusual bruising or bleeding Psychiatric: normal mood and affect, good judgment and insight, intact recent and remote memory FMR H&P: Results - Labs Result Diagrams: 12/05/19 04:02 12/05/19 04:02 Lab results: WBC 7.6 thou/uL (4.8-10.8) 12/04/19 17:48 Hgb 12.2 g/dL (12.0-16.0) 12/04/19 17:48 Hct 36.1 % (36.0-47.0) 12/04/19 17:48 MCV 92.2 fL (78.0-98.0) 12/04/19 17:48 Plt Count 268 thou/uL (130-400) 12/04/19 17:48 Neutrophils % 61.4 % (42.0-75.0) 12/04/19 17:48 Sodium 135 mmol/L (136-145) L 12/04/19 17:48 Potassium 4.1 mmol/L (3.5-5.1) 12/04/19 17:48 Chloride 106 mmol/L (98-107) 12/04/19 17:48 Carbon Dioxide 21 mmol/L (22-29) L 12/04/19 17:48 BUN 13 mg/dL (7.0-18.7) 12/04/19 17:48 Creatinine 0.76 mg/dL (0.6-1.1) 12/04/19 17:48 Glucose 89 mg/dL (70-105) 12/04/19 17:48 Calcium 8.9 mg/dL (7.8-10.44) 12/04/19 17:48 Total Bilirubin 0.5 mg/dL (0.2-1.2) 12/04/19 17:48 AST 20 U/L (5-34) 12/04/19 17:48 ALT 13 U/L (8-55) 12/04/19 17:48 Alkaline Phosphatase 83 U/L (40-110) 12/04/19 17:48 Serum Total Protein 7.2 g/dL (6.0-8.3) 12/04/19 17:48 Albumin 3.7 g/dL (3.5-5.0) 12/04/19 17:48 Lipase 135 U/L (8-78) H 12/04/19 17:48 - EKG Interpretation EKG: Sinus bradycardia, no acute T wave abnormality - Radiology Interpretation Chest x-ray Status: image reviewed by me, report reviewed by me (No acute process) FMR H&P: A/P - Problem List (1) Hx of pancreatitis Current Visit: Yes Status: Acute Code(s): Z87.19 - PERSONAL HISTORY OF OTHER DISEASES OF THE DIGESTIVE SYSTEM (2) Atypical chest pain Current Visit: No Status: Acute Code(s): R07.89 - OTHER CHEST PAIN (3) GERD (gastroesophageal reflux disease) Current Visit: No Status: Acute Code(s): K21.9 - GASTRO-ESOPHAGEAL REFLUX DISEASE WITHOUT ESOPHAGITIS (4) Depression Current Visit: No Status: Chronic Code(s): F32.9 - MAJOR DEPRESSIVE DISORDER , SINGLE EPISODE, UNSPECIFIED Qualifiers: Psychotic features: without psychotic features (5) History of cerebrovascular accident (CVA) with residual deficit Current Visit: No Status: Chronic Code(s): I69.30 - UNSPECIFIED SEQUELAE OF CEREBRAL INFARCTION (6) Intractable nausea and vomiting Current Visit: No Status: Chronic Code(s): R11.2 - NAUSEA WITH VOMITING, UNSPECIFIED (7) Status post bariatric surgery Current Visit: No Status: Chronic - Plan 49 yo AA w/ complaints of n/v and chest pain will be admitted to [facility] for observation. #Atypical Chest pain -Reports racing heart rate and chest pressure like pain. -Will trend trops. Will get stress in morning. -TSH, Mg, phos, FLp pending -NPO for test #Chronic pancreatitis -Pt has had past episodes of pancreatitis. Reports pain somewhat similar to past episodes. -Will keep NPO for above testing. Can adv diet as tolerated after -LR@125 -Bentyl, Zofran and Morphine for pain as needed. #GERD -Pt has hx of gastric surgery and hx of gerd with recent change in medication to nexium 20mg. -Protonix 40 mg IV -Could be causing pain above. #Mild Dehydration -LR@125. 2/2 N/V related to above #HTN -continue home meds #HLD -continue home meds #Hx CVA w/ R. sided residual deficits #depression/Anxiety -will continue home meds at this time. DVT ppx: lovenox GERD ppx: Protonix Dispo: Pt having n/v and chest pain. Will admit for obs for Atypical chest pain vs chronic pancreatitis. Will tx pain. Fluids per above. Stress in AM. Addendum - Attending - Attending Attestation Date/Time: 12/05/19 8850 I personally evaluated the patient and discussed the management with the team. I agree with the History, Examination, Assessment and Plan documented above with any addition or exceptions noted below. Mild TTP LENA. Otherwise relatively unremarkable exam. IV hydration. Would stress her at some point in course for chest pain.
[2019-12-04] MEDS ORDERED: Calcium Carbonate 500 MG ChewTAB PO PRN (22:25)
[2019-12-04] MEDS ORDERED: Nitroglycerin 0.4 MG TAB (25 Tab Bottle) PO PRN (22:25)
[2019-12-04] MEDS ORDERED: Sodium Chloride 0.9% (PF) 10 ML VIAL FS PRN (22:40)
[2019-12-04] MEDS: Lactated Ringer's 1,000 ML IV SCH (22:54)
[2019-12-04] MEDS: Morphine 4 MG/ML VIAL SLOW IVP PRN (22:54)
[2019-12-04] MEDS ORDERED: Enoxaparin Sodium 40 MG/0.4 ML SYRINGE SC SCH (23:00)
[2019-12-04] MEDS ORDERED: Lidocaine 2% Viscous Solution 20 ML, Aluminum & Magnesium Hydroxide 30 ML, Donnatal Eli... SSW SCH (23:00)
[2019-12-04] MEDS ORDERED: Pantoprazole 40 MG VIAL IVP SCH (23:00)
[2019-12-04 23:06] LABS: Troponin I 0.017 ng/mL (< 0.028)
[2019-12-05 01:31] LABS: Troponin I 0.012 ng/mL (< 0.028)
[2019-12-05] MEDS: Ondansetron PF 4 MG/2 ML Vial IVP PRN ×3 (02:12→14:07)
[2019-12-05] MEDS: Morphine 4 MG/ML VIAL SLOW IVP PRN ×4 (03:37→22:14)
[2019-12-05] MEDS: Lisinopril 2.5 MG TAB PO SCH (04:31)
[2019-12-05 04:59] LABS: #Basophils 0.1 thou/uL (0.0-0.2); #Eosinphils 0.3 thou/uL (0.0-0.7); #Lymphocytes 2.4 thou/uL (1.20-3.40); #Monocytes 0.4 thou/uL (0.11-0.59); %Basophils 1.7 % (0.0-1.0); %Eosinophils 5.5 % (0.0-10.0); %Lymphocytes 46.4 % (21.0-51.0); %Monocytes 8.2 % (0.0-10.0); %Neutrophils 38.2 % (42.0-75.0); Hemoglobin 10.9 g/dL (12.0-16.0); Mean Corpuscular HGB CONC 32.5 g/dL (32.0-36.0); Mean Corpuscular Volume 92.4 fL (78.0-98.0); Mean Platelet Volume 8.5 fL (7.4-10.4); Platelet Count 261 thou/uL (130-400); RBC Distribution Width 12.5 % (11.5-14.5); Red Blood Cell (RBC) Count 3.62 mill/uL (4.20-5.40); White Blood Cell (WBC) Count 5.3 thou/uL (4.8-10.8)
[2019-12-05 05:21] LABS: Phosphorus 3.2 mg/dL (2.3-4.7)
[2019-12-05 05:22] LABS: ALT (SGPT) 13 U/L (8-55); AST (SGOT) 23 U/L (5-34); Albumin 3.3 g/dL (3.5-5.0); Alkaline Phosphatase 74 U/L (40-110); Anion Gap 10 mmol/L (10-20); BUN (Urea Nitrogen) 10 mg/dL (7.0-18.7); Bilirubin, Total 0.6 mg/dL (0.2-1.2); Calc. Creatinine Clearance 134 mL/min (70-130); Calcium 8.3 mg/dL (7.8-10.44); Carbon Dioxide 23 mmol/L (22-29); Cardiac Risk 2.3 (Less than 4.5); Chloride 106 mmol/L (98-107); Cholesterol 177 mg/dl (< 200 Desired); Estimated GFR-MDRD Greater than 90; Glucose 86 mg/dL (70-105); HDL Cholesterol 78 mg/dL (>60 Neg Risk); LDL Cholesterol, Calculated 91 mg/dL; Magnesium 1.9 mg/dL (1.6-2.6); Potassium 3.6 mmol/L (3.5-5.1); Protein, Total 6.3 g/dL (6.0-8.3); Sodium 135 mmol/L (136-145); Triglycerides 41 mg/dL (Less than 150)
[2019-12-05] MEDS: Lactated Ringer's 1,000 ML IV SCH ×3 (05:37→23:26)
[2019-12-05] MEDS: Ondansetron ODT 4 MG TAB PO PRN ×2 (05:37→20:24)
--- NOTE | 2019-12-05 06:03 | PDOC.FM ---
- Subjective Subjective: Patient was resting comfortably in bed at the time of evaluation, but stated that she had a "terrible night." Patient continues to endorse ABD pain and nausea, but denied vomiting and chest pain. - Objective Vital Signs & Weight: Vital Signs (12 hours) Temp Pulse Resp BP Pulse Ox 12/05/19 04:13 97.3 F L 56 L 18 111/63 94 L 12/04/19 22:03 97.9 F 56 L 18 133/61 100 Weight Weight 88.36 kg I&O: 12/03/19 12/04/19 12/05/19 06:59 06:59 06:59 Intake Total 942 Output Total 600 Balance 342 Result Diagrams: 12/05/19 04:02 12/05/19 04:02 Phys Exam - Physical Examination Constitutional: NAD HEENT: moist MMs, oral pharynx no lesions Neck: supple, full ROM Respiratory: no wheezing, no rales, no rhonchi, clear to auscultation bilateral Cardiovascular: RRR, no significant murmur, no rub Gastrointestinal: soft, non-tender, no distention, positive bowel sounds Musculoskeletal: no edema, pulses present Neurological: non-focal, moves all 4 limbs Psychiatric: normal affect Dx/Plan (1) Hx of pancreatitis Code(s): Z87.19 - PERSONAL HISTORY OF OTHER DISEASES OF THE DIGESTIVE SYSTEM Status: Acute (2) Abdominal pain Code(s): R10.9 - UNSPECIFIED ABDOMINAL PAIN Status: Acute (3) Atypical chest pain Code(s): R07.89 - OTHER CHEST PAIN Status: Acute (4) History of hypertension Code(s): Z86.79 - PERSONAL HISTORY OF OTHER DISEASES OF THE CIRCULATORY SYSTEM Status: Acute (5) History of cerebrovascular accident (CVA) with residual deficit Code(s): I69.30 - UNSPECIFIED SEQUELAE OF CEREBRAL INFARCTION Status: Chronic (6) Intractable nausea and vomiting Code(s): R11.2 - NAUSEA WITH VOMITING, UNSPECIFIED Status: Chronic - Plan Plan: Patient is a 49 y/o female with a PMH significant for Chronic Pancreatitis, CAD, and a previous CVA who presents for evaluation of N/V and atypical chest pain. #Atypical Chest pain -Patient reported "racing heart rate" and chest "pressure" consistent with pain -Trops: Negative x3 -EKG: Bradycardia -TSH: 1.5 -M.9 -Phos: 3.2 -FLP: Tri(41), Chol(177), LDL(91), HDL(78) - ASCVD Risk: 0.5% -Stress Test: Pending #Chronic Pancreatitis -Patient has had past episodes of Pancreatitis - reports similar symptoms -LR @125 ml/hr -Bentyl, Zofran and Morphine for pain as needed -Will keep NPO for above testing - will plan to advance diet as tolerated following test completion #GERD -Patient has Hx of bariatric surgery - recently changed medication regimen to include Nexium -Protonix 40 mg IV -Possible contributing factor to Atypical Chest Pain #Mild Dehydration -Likely 2/2 to multiple episodes of N/V -LR @ 125 ml/hr #HTN -BP at goal since admission - will continue home medication regimen #HLD -FLP: See Above -Will continue home medication regimen based on Hx of CVA and recurrent Pancreatitis #Hx CVA w/ R. sided residual deficits #depression/Anxiety -Will continue home medication regimen PCP: RYAN Clifton Diet: NPO Activity: Ad yuridia IVF: LR @ 125 ml/hr VTE PPx Lovenox GI PPx: Protonix Dispo: Patient is currently stable and admitted to the Telemetry Floor for ongoing evaluation of Atypical Chest Pain and N/V for several days. Stress Test pending this AM, will continue with medical management as per above. Expected LOS < 48H. Addendum - Attending - Attending Attestation Date/Time: 12/05/19 5414 I personally evaluated the patient and discussed the management with Dr. Ramirez. I agree with the History, Examination, Assessment and Plan documented above with any addition or exceptions noted below. Patient here with complaints similar to previous presentations of chronic pancreatitis flares. Lipase mildly elevated. BP control, pain control, IVF, and clear liquids with slow advancement.
[2019-12-05 08:47] LABS: Hemoglobin A1c 5.4 % (4.0-6.0)
[2019-12-05] MEDS ORDERED: Aspirin Chewable 81 MG TAB PO SCH (09:00)
[2019-12-05] MEDS ORDERED: Lisinopril 10 MG TAB PO SCH (09:00)
[2019-12-05] MEDS ORDERED: Prevnar 13-Val Conj/PF 0.5 ML SYRINGE IM ONE (09:00)
[2019-12-05] MEDS: Dicyclomine 10 MG CAP PO SCH ×4 (09:05→20:24)
[2019-12-05] MEDS: Enoxaparin Sodium 40 MG/0.4 ML SYRINGE SC SCH (09:06)
[2019-12-05] MEDS: Aspirin Chewable 81 MG TAB PO SCH (09:06)
[2019-12-05] MEDS: Pantoprazole 40 MG VIAL IVP SCH (09:07)
[2019-12-05] MEDS: busPIRone HCl 10 MG TAB PO SCH ×2 (09:11→20:24)
[2019-12-05] MEDS: Atorvastatin Calcium 40 MG TAB PO SCH (20:24)
--- NOTE | 2019-12-06 06:01 | PDOC.FM ---
- Subjective Subjective: Patient was ambulating to the sink to brush her teeth at the time of evaluation. She denied any acute overnight events, such as chest pain or SOB, but she did endorse mild, continued N/V and ABD pain that responded well to Morphine. She states that she was able to eat a minimal amount of her Clear Liquid lunch, but did not feel like eating dinner. - Objective Vital Signs & Weight: Vital Signs (12 hours) Temp Pulse Resp BP Pulse Ox 12/06/19 05:23 98.1 F 66 17 130/79 97 12/06/19 00:40 98.2 F 75 17 115/79 98 12/05/19 20:20 98.2 F 50 L 16 122/78 100 Weight Admit Weight 87.997 kg Weight 88.36 kg I&O: 12/04/19 12/05/19 12/06/19 06:59 06:59 06:59 Intake Total 942 360 Output Total 600 1300 Balance 342 -940 Result Diagrams: 12/05/19 04:02 12/05/19 04:02 Phys Exam - Physical Examination Constitutional: NAD HEENT: PERRLA, moist MMs, sclera anicteric, oral pharynx no lesions Neck: supple, full ROM Respiratory: no wheezing, no rales, no rhonchi, clear to auscultation bilateral Cardiovascular: RRR, no significant murmur, no rub Gastrointestinal: soft, no distention, positive bowel sounds Minimal epigastric/arpita-umbilical TTP Musculoskeletal: no edema, pulses present Neurological: non-focal, moves all 4 limbs Psychiatric: normal affect Dx/Plan (1) Hx of pancreatitis Code(s): Z87.19 - PERSONAL HISTORY OF OTHER DISEASES OF THE DIGESTIVE SYSTEM Status: Acute (2) Abdominal pain Code(s): R10.9 - UNSPECIFIED ABDOMINAL PAIN Status: Acute (3) Atypical chest pain Code(s): R07.89 - OTHER CHEST PAIN Status: Acute (4) History of hypertension Code(s): Z86.79 - PERSONAL HISTORY OF OTHER DISEASES OF THE CIRCULATORY SYSTEM Status: Acute (5) History of cerebrovascular accident (CVA) with residual deficit Code(s): I69.30 - UNSPECIFIED SEQUELAE OF CEREBRAL INFARCTION Status: Chronic (6) Intractable nausea and vomiting Code(s): R11.2 - NAUSEA WITH VOMITING, UNSPECIFIED Status: Chronic - Plan Plan: Patient is a 49 y/o female with a PMH significant for Chronic Pancreatitis, CAD, and a previous CVA who presents for evaluation of N/V and atypical chest pain. #Atypical Chest pain -Patient reported "racing heart rate" and chest "pressure" consistent with pain -Trops: Negative x3 -EKG: Bradycardia -TSH: 1.5 -M.9 -Phos: 3.2 -FLP: Tri(41), Chol(177), LDL(91), HDL(78) - ASCVD Risk: 0.5% -Stress Test not performed since most recent Stress Test was in 03/12 - although a reversible defect was noted, medical management was pursued at that time #Chronic Pancreatitis -Patient has had past episodes of Pancreatitis - reports similar symptoms -LR @ 125 ml/hr -Bentyl, Zofran and Morphine PRN -Will advance diet as tolerated - patient refused/did not finish multiple meals on 12/04 #GERD -Patient has Hx of bariatric surgery - recently changed medication regimen to include Nexium -Protonix 40 mg IV -Possible contributing factor to Atypical Chest Pain #Mild Dehydration -Likely 2/2 to multiple episodes of N/V -LR @ 125 ml/hr #HTN -BP at goal since admission - will continue home medication regimen #HLD -FLP: See Above -Will continue home medication regimen based on Hx of CVA and recurrent Pancreatitis #Hx CVA w/ R. sided residual deficits #depression/Anxiety -Will continue home medication regimen PCP: RYAN - Dr. Clifton Diet: Clears - Will Advance as Tolerated Activity: Ad yuridia IVF: LR @ 125 ml/hr VTE PPx Lovenox GI PPx: Protonix Dispo: Patient is currently stable and admitted to the Medical Floor for ongoing evaluation of Atypical Chest Pain and N/V for several days, likely secondary to Recurrent Pancreatitis. Will continue with medical management as per above with IVF, pain control and diet advancement. Expected LOS < 48H. Addendum - Attending - Attending Attestation Date/Time: 12/06/19 7967 I personally evaluated the patient and discussed the management with Dr. Ramirez. I agree with the History, Examination, Assessment and Plan documented above with any addition or exceptions noted below. Patient here for acute on chronic pancreatitis. Labs did not seem all that impressive, however her pain complaint is c/w diagnosis. She reports having appetite this morning and will try CLD again this morning. I advised her to avoid broth until she can tolerate other clears. Continue IVF, pain control, and ADAT. If she does not improve, would recommend CT to clarify diagnosis.
[2019-12-06] MEDS: Lactated Ringer's 1,000 ML IV SCH ×3 (06:02→21:01)
[2019-12-06] MEDS: Ondansetron PF 4 MG/2 ML Vial IVP PRN ×3 (06:05→21:10)
[2019-12-06] MEDS: Morphine 4 MG/ML VIAL SLOW IVP PRN ×4 (06:05→20:59)
[2019-12-06] MEDS: Pantoprazole 40 MG VIAL IVP SCH (08:57)
[2019-12-06] MEDS: Dicyclomine 10 MG CAP PO SCH ×4 (08:57→21:01)
[2019-12-06] MEDS: busPIRone HCl 10 MG TAB PO SCH ×2 (08:57→21:01)
[2019-12-06] MEDS: Enoxaparin Sodium 40 MG/0.4 ML SYRINGE SC SCH (08:58)
[2019-12-06] MEDS: Lisinopril 2.5 MG TAB PO SCH (08:58)
[2019-12-06] MEDS: Aspirin Chewable 81 MG TAB PO SCH (08:58)
[2019-12-06] MEDS: Ondansetron ODT 4 MG TAB PO PRN ×2 (08:58→15:11)
[2019-12-06] MEDS ORDERED: Morphine 2 MG/ML SYRINGE SLOW IVP PRN (15:25)
[2019-12-06] MEDS: Atorvastatin Calcium 40 MG TAB PO SCH (21:01)
[2019-12-07] MEDS: Ondansetron PF 4 MG/2 ML Vial IVP PRN ×3 (03:21→21:41)
[2019-12-07] MEDS: Morphine 4 MG/ML VIAL SLOW IVP PRN (03:32)
[2019-12-07] MEDS: Lactated Ringer's 1,000 ML IV SCH ×4 (03:33→21:40)
--- NOTE | 2019-12-07 06:25 | PDOC.FM ---
- Subjective Subjective: Pt notes continued N/V with PO intake. Has tolerated small amount of water. Pain is currently well managed. - Objective Vital Signs & Weight: Vital Signs (12 hours) Temp Pulse Resp BP Pulse Ox 12/07/19 04:02 98.4 F 54 L 18 94/62 100 12/06/19 23:47 98.6 F 63 18 113/71 99 12/06/19 21:17 98.8 F 58 L 16 108/67 96 Weight Admit Weight 87.997 kg Weight 88.36 kg I&O: 12/05/19 12/06/19 12/07/19 06:59 06:59 06:59 Intake Total 392 180 7814 Output Total 600 1300 Balance 342 -940 2453 Result Diagrams: 12/05/19 04:02 12/05/19 04:02 Phys Exam - Physical Examination Constitutional: NAD HEENT: moist MMs No respiratory distress Gastrointestinal: soft, no distention, positive bowel sounds Minimal RUQ tenderness Musculoskeletal: no edema, pulses present Neurological: moves all 4 limbs Psychiatric: normal affect, A&O x 3 Dx/Plan - Plan Plan: Chronic Pancreatitis -Hx of this with flare ups -LR @ 125 ml/hr -Bentyl, Zofran and Morphine PRN -will add phenergan -Will advance diet as tolerated, has been reluctant to attempt, did tolerate some PO liquids yesterday GERD -Hx of bariatric surgery - recently changed medication regimen to include Nexium -Protonix 40 mg IV HTN -Continue home medication regimen HLD -Continue home meds Hx CVA w/ R. sided residual deficits -Aware, stable Depression/Anxiety -Will continue home medication regimen PCP: RYAN - Dr. Clifton Diet: Clears - Will Advance as Tolerated Activity: Ad yuridia IVF: LR @ 125 ml/hr VTE PPx Lovenox GI PPx: Protonix Dispo: Inpt medical. Chronic pancreatitis flare. Attempting to advance diet but pt has been reluctant. Prn's available. Maintenance IVF. Addendum - Attending - Attending Attestation Date/Time: 12/07/192005 I personally evaluated the patient and discussed the management with Dr. Villanueva I agree with the History, Examination, Assessment and Plan documented above with any addition or exceptions noted below - Patient c/o continued abdominal pain and poor appetite due to nausea. Afebrile VSS. A/P: 1) Acute on chronic pancreatitis- still not tolerating po; phenergan added to regimen. Consider CT abdomen if symptoms not improved. 2) HTN- stable; continue home meds.
[2019-12-07] MEDS ORDERED: Morphine 2 MG/ML SYRINGE SLOW IVP PRN (06:31)
[2019-12-07] MEDS: Pantoprazole 40 MG VIAL IVP SCH (08:06)
[2019-12-07] MEDS: Morphine 2 MG/ML SYRINGE SLOW IVP PRN ×2 (08:07→13:00)
[2019-12-07] MEDS: Enoxaparin Sodium 40 MG/0.4 ML SYRINGE SC SCH (08:08)
[2019-12-07] MEDS ORDERED: Promethazine HCl 25 MG/ML VIAL IM/IV PRN (08:17)
[2019-12-07] MEDS: busPIRone HCl 10 MG TAB PO SCH ×2 (08:58→21:41)
[2019-12-07] MEDS: Dicyclomine 10 MG CAP PO SCH ×4 (08:58→21:46)
[2019-12-07] MEDS: Lisinopril 2.5 MG TAB PO SCH (08:58)
[2019-12-07] MEDS: Aspirin Chewable 81 MG TAB PO SCH (08:58)
[2019-12-07] MEDS ORDERED: Promethazine HCl 25 MG in Sodium Chloride 0.9% 50 ML IVPB PRN (13:47)
[2019-12-07] MEDS: Atorvastatin Calcium 40 MG TAB PO SCH (21:41)
[2019-12-08] MEDS: Lactated Ringer's 1,000 ML IV SCH ×3 (05:15→23:03)
[2019-12-08] MEDS: Ondansetron PF 4 MG/2 ML Vial IVP PRN ×3 (06:24→20:52)
--- NOTE | 2019-12-08 07:06 | PDOC.FM ---
- Subjective Subjective: Pt notes continued nausea with PO intake. Did tolerate small portion of meal last night. Noted some abdominal discomfort with urination this morning. - Objective Vital Signs & Weight: Vital Signs (12 hours) Temp Pulse Resp BP Pulse Ox 12/07/19 21:52 97.8 F 64 16 98/66 96 Weight Admit Weight 87.997 kg Weight 88.36 kg I&O: 12/07/19 12/08/19 12/09/19 06:59 06:59 06:59 Intake Total 3953 2910 Balance 3953 2910 Result Diagrams: 12/09/19 05:47 12/08/19 10:01 Phys Exam - Physical Examination Constitutional: NAD HEENT: moist MMs, sclera anicteric Respiratory: clear to auscultation bilateral Cardiovascular: RRR Gastrointestinal: soft minimal RUQ tenderness Musculoskeletal: no edema, pulses present Neurological: moves all 4 limbs Psychiatric: normal affect, A&O x 3 Dx/Plan - Plan Plan: Chronic Pancreatitis vs Gastroparesis -Hx of this with flare ups -LR @ 125 ml/hr, will consider backing down at pt tolerates more PO intake -Bentyl, Zofran morphine, and phenergan prn - pt notes improvement with phenergan overnight - Due to question of possible gastroparesis will add reglan pre meals - Lavinia phenergan for night time to decrease interactions -Diet advanced to CL yesterday, tolerated 25% of dinner -Pain controlled GERD -Hx of bariatric surgery - recently changed medication regimen to include Nexium -Protonix 40 mg IV HTN -Continue home medication regimen HLD -Continue home meds Hx CVA w/ R. sided residual deficits -Aware, stable Depression/Anxiety -Will continue home medication regimen PCP: RYAN Clifton Diet: Clears - Will Advance as Tolerated Activity: Ad yuridia IVF: LR @ 125 ml/hr VTE PPx Lovenox GI PPx: Protonix Dispo: Inpt medical. Chronic pancreatitis flare vs advancing gastroparesis s/p partial gastrectomy. Attempting to advance diet but pt has been reluctant. Prn' s available. Maintenance IVF. Addendum - Attending - Attending Attestation Date/Time: 12/10/19 2150 I personally evaluated the patient and discussed the management with Dr. Villanueva on 12/08/19 I agree with the History, Examination, Assessment and Plan documented above with any addition or exceptions noted below- Patient still with some nausea. Poor po intake. Tm 100.8 VSS A/P: 1) Persistent N/V - start on reglan; continue zofran; continue po trial. 2) Fever- will check U/A and urine culture. 3) GERD- continue PPI
[2019-12-08] MEDS: Morphine 2 MG/ML SYRINGE SLOW IVP PRN ×3 (08:22→18:34)
[2019-12-08] MEDS: Enoxaparin Sodium 40 MG/0.4 ML SYRINGE SC SCH (08:23)
[2019-12-08] MEDS: Pantoprazole 40 MG VIAL IVP SCH (08:24)
[2019-12-08 10:12] LABS: #Eosinphils 0.3 thou/uL (0.0-0.7); #Lymphocytes 1.7 thou/uL (1.20-3.40); #Monocytes 0.4 thou/uL (0.11-0.59); %Basophils 0.5 % (0.0-1.0); %Eosinophils 5.1 % (0.0-10.0); %Lymphocytes 30.9 % (21.0-51.0); %Monocytes 7.5 % (0.0-10.0); %Neutrophils 56.1 % (42.0-75.0); Hemoglobin 12.5 g/dL (12.0-16.0); Mean Corpuscular HGB CONC 32.4 g/dL (32.0-36.0); Mean Corpuscular Volume 92.8 fL (78.0-98.0); Mean Platelet Volume 8.1 fL (7.4-10.4); Platelet Count 281 thou/uL (130-400); RBC Distribution Width 12.4 % (11.5-14.5); Red Blood Cell (RBC) Count 4.15 mill/uL (4.20-5.40); White Blood Cell (WBC) Count 5.4 thou/uL (4.8-10.8)
[2019-12-08] MEDS: Metoclopramide HCl 10 MG/2 ML VIAL IVP PRN ×2 (10:33→18:37)
[2019-12-08] MEDS: Dicyclomine 10 MG CAP PO SCH ×4 (10:35→20:47)
[2019-12-08] MEDS: Aspirin Chewable 81 MG TAB PO SCH (10:35)
[2019-12-08] MEDS: busPIRone HCl 10 MG TAB PO SCH ×2 (10:36→20:48)
[2019-12-08 10:44] LABS: ALT (SGPT) 20 U/L (8-55); AST (SGOT) 27 U/L (5-34); Albumin 3.6 g/dL (3.5-5.0); Alkaline Phosphatase 96 U/L (40-110); Anion Gap 8 mmol/L (10-20); BUN (Urea Nitrogen) 4 mg/dL (7.0-18.7); Bilirubin, Total 0.6 mg/dL (0.2-1.2); Calc. Creatinine Clearance 112 mL/min (70-130); Carbon Dioxide 26 mmol/L (22-29); Chloride 106 mmol/L (98-107); Estimated GFR-MDRD 86; Globulin 3.4 g/dL (2.4-3.5); Glucose 93 mg/dL (70-105); Potassium 3.6 mmol/L (3.5-5.1); Sodium 136 mmol/L (136-145)
[2019-12-08] MEDS: Lisinopril 2.5 MG TAB PO SCH (10:53)
[2019-12-08 18:51] LABS: Bilirubin Negative (Negative); Blood, Urine Trace (Negative); Clarity Clear (Clear); Glucose, Urine (Dipstick) Normal (Negative); Leukocyte Negative Leu/uL (Negative); Mucous/LPF Rare LPF (<2+); Nitrite Negative (Negative); Protein, Urine (Dipstick) Negative (Neg-Trace); Squamous Epithelial 0-3 HPF (0-3); Urobilinogen Normal mg/dL (Less than 2); WBC/HPF 0-3 HPF (0-3)
[2019-12-08 18:53] LABS: Bacteria/HPF 1+ HPF (None Seen)
[2019-12-08 18:54] LABS: Urine Culture Reflex Yes Yes
[2019-12-08] MEDS: Atorvastatin Calcium 40 MG TAB PO SCH (20:47)
[2019-12-09] MEDS: Ondansetron PF 4 MG/2 ML Vial IVP PRN (05:52)
[2019-12-09] MEDS: Morphine 2 MG/ML SYRINGE SLOW IVP PRN (05:53)
[2019-12-09] MEDS: Lactated Ringer's 1,000 ML IV SCH (06:47)
--- NOTE | 2019-12-09 07:20 | PDOC.FM ---
- Subjective Subjective: Pt notes improvement in her PO toleration with the reglan prior to meals. Has tolerated about 25% of diet with each meal. Notes continued RUQ pain that occurs with eating. Confirms she is s/p cholecystectomy. Discussed possible imaging and she is in agreement. - Objective Vital Signs & Weight: Vital Signs (12 hours) Temp Pulse Resp BP Pulse Ox 12/08/19 20:00 98.3 F 61 16 101/67 97 Weight Admit Weight 87.997 kg Weight 88.36 kg I&O: 12/08/19 12/09/19 12/10/19 06:59 06:59 06:59 Intake Total 2910 3400 Balance 2910 3400 Result Diagrams: 12/09/19 05:47 12/08/19 10:01 Phys Exam - Physical Examination Constitutional: NAD HEENT: moist MMs Neck: full ROM no resp distress Gastrointestinal: soft, no distention, positive bowel sounds minimal RUQ tenderness Musculoskeletal: no edema Neurological: non-focal, moves all 4 limbs Psychiatric: normal affect, A&O x 3 Dx/Plan - Plan Plan: Chronic Pancreatitis vs Gastroparesis -Hx of this with flare ups since gastric sleeve -DC IVF due to moderate PO fluid intake -Bentyl, Zofran morphine, phenergan, and reglan per prescribed regimen -Diet advanced to CL, tolerating 25% of meals -Pain controlled -Consider CT abdomen today GERD -Hx of bariatric surgery - recently changed medication regimen to include Nexium -Protonix 40 mg IV HTN -Continue home medication regimen HLD -Continue home meds Hx CVA w/ R. sided residual deficits -Aware, stable Depression/Anxiety -Will continue home medication regimen PCP: YRAN - Dr. Clifton Diet: Clears - Will Advance as Tolerated Activity: Ad yuridia IVF: LR @ 125 ml/hr VTE PPx Lovenox GI PPx: Protonix Dispo: Inpt medical. Chronic pancreatitis flare vs advancing gastroparesis s/p partial gastrectomy. Advancing diet slowly. DC'd IVF today. Will she how she tolerates PO with hopes of DC today vs tomorrow. Addendum - Attending - Attending Attestation Date/Time: 12/10/19 6337 I personally evaluated the patient and discussed the management with Dr. Villanueva on 12/09/19 I agree with the History, Examination, Assessment and Plan documented above with any addition or exceptions noted below - Patient feeling a little better. Afebrile VSS. A/P: 1) Persistent N/V- continue current meds; encouraged to ambulate. Will obtain CT abd due to persistent symptoms. 2) GERD- continue PPI
[2019-12-09] MEDS: busPIRone HCl 10 MG TAB PO SCH ×2 (08:00→20:48)
[2019-12-09] MEDS: Dicyclomine 10 MG CAP PO SCH ×4 (08:01→20:48)
[2019-12-09] MEDS: Aspirin Chewable 81 MG TAB PO SCH (08:01)
[2019-12-09] MEDS: Ondansetron ODT 4 MG TAB PO PRN ×2 (08:01→17:34)
[2019-12-09 08:03] LABS: #Basophils 0.1 thou/uL (0.0-0.2); #Eosinphils 0.4 thou/uL (0.0-0.7); #Lymphocytes 2.2 thou/uL (1.20-3.40); #Monocytes 0.5 thou/uL (0.11-0.59); #Neutrophils 2.3 thou/uL (1.40-6.50); %Basophils 1.7 % (0.0-1.0); %Eosinophils 7.8 % (0.0-10.0); %Monocytes 8.1 % (0.0-10.0); %Neutrophils 42.4 % (42.0-75.0); Hemoglobin 10.8 g/dL (12.0-16.0); Mean Corpuscular HGB CONC 32.1 g/dL (32.0-36.0); Mean Corpuscular Hemoglobin 29.8 pg (27.0-31.0); Mean Corpuscular Volume 92.8 fL (78.0-98.0); Mean Platelet Volume 10.1 fL (7.4-10.4); Platelet Count 166 thou/uL (130-400); RBC Distribution Width 12.4 % (11.5-14.5); Red Blood Cell (RBC) Count 3.63 mill/uL (4.20-5.40); White Blood Cell (WBC) Count 5.5 thou/uL (4.8-10.8)
[2019-12-09] MEDS: Enoxaparin Sodium 40 MG/0.4 ML SYRINGE SC SCH (08:03)
[2019-12-09] MEDS: Pantoprazole 40 MG VIAL IVP SCH (08:03)
[2019-12-09] MEDS: Lisinopril 2.5 MG TAB PO SCH (08:05)
--- NOTE | 2019-12-09 10:24 | CT ---
CT Abdomen Pelvis W Con: 12/09/2019 9:19 AM CLINICAL INFORMATION: Epigastric abdominal pain with history of pancreatitis. COMPARISON: 03/07/2019 TECHNIQUE: Multiple contiguous axial images were obtained and a CT of the abdomen and pelvis with IV contrast. C oronal and sagittal reformats were performed. FINDINGS: Lower Chest: within normal limits. Abdomen: Liver: within normal limits. Bile Ducts: Normal caliber. Gallbladder: Removed Pancreas: within normal limits. Spleen: within normal limits. Adrenals: within normal limits. Kidneys: within normal limits. Pelvis: Reproductive Organs: Status post hysterectomy. Ureters: within normal limits. Bladder: within normal limits. Peritoneum: No ascites or free air, no fluid collection. Bowel: Postsurgical changes in the stomach. The large and small bowel are unremarkable. Mesentery and Retroperitoneum: No enlarged mesenteric or retroperitoneal lymph nodes. Vessels: Normal. Abdominal Wall: Air in the abdominal wall is likely from recent injections. There is a small fat-cont aining umbilical hernia. Bones: Within normal limits IMPRESSION: No evidence of acute intraabdominal or pelvic abnormality.
[2019-12-09] MEDS: Metoclopramide HCl 10 MG/2 ML VIAL IVP PRN (12:42)
[2019-12-09] MEDS: Morphine 2 MG/ML SYRINGE SLOW IVP SCH ×2 (12:44→18:32)
[2019-12-09] MEDS: Promethazine HCl 25 MG in Sodium Chloride 0.9% 50 ML IVPB PRN (20:48)
[2019-12-09] MEDS: Atorvastatin Calcium 40 MG TAB PO SCH (20:48)
[2019-12-10] MEDS: Morphine 2 MG/ML SYRINGE SLOW IVP SCH ×3 (00:59→12:34)
[2019-12-10] MEDS: Ondansetron ODT 4 MG TAB PO PRN ×2 (06:23→20:30)
[2019-12-10] MEDS: busPIRone HCl 10 MG TAB PO SCH ×2 (08:16→20:27)
[2019-12-10] MEDS: Aspirin Chewable 81 MG TAB PO SCH (08:17)
[2019-12-10] MEDS: Pantoprazole 40 MG VIAL IVP SCH (08:17)
[2019-12-10] MEDS: Enoxaparin Sodium 40 MG/0.4 ML SYRINGE SC SCH (08:17)
[2019-12-10] MEDS: Lisinopril 2.5 MG TAB PO SCH (08:34)
[2019-12-10] MEDS: Metoclopramide HCl 10 MG/2 ML VIAL IVP PRN (09:48)
[2019-12-10] MEDS: Dicyclomine 10 MG CAP PO SCH ×2 (09:50→12:32)
[2019-12-10] MEDS ORDERED: Docusate 100 MG CAP PO PRN (10:23)
[2019-12-10] MEDS: Ondansetron PF 4 MG/2 ML Vial IVP PRN (15:50)
[2019-12-10] MEDS: traMADol HCl 50 MG TAB PO PRN (20:26)
[2019-12-10] MEDS: Atorvastatin Calcium 40 MG TAB PO SCH (20:27)
[2019-12-10] MEDS: Metoclopramide HCl 10 MG/2 ML VIAL IVP SCH (20:27)
--- NOTE | 2019-12-10 22:15 | PDOC.FM ---
- Subjective Subjective: Patient tolerated small amount of breakfast yesterday but then vomited afterwards. She stated that she attempted know for their meals throughout the rest the day. She denies any bowel movements for the last few days. Her pain is well-controlled. - Objective Vital Signs & Weight: Vital Signs (12 hours) Temp Pulse Resp BP Pulse Ox 12/10/19 20:00 98.8 F 60 16 104/69 98 Weight Admit Weight 87.997 kg Weight 88.36 kg I&O: 12/09/19 12/10/19 12/11/19 06:59 06:59 06:59 Intake Total 3400 550 300 Balance 3400 550 300 Result Diagrams: 12/12/19 09:33 12/12/19 09:33 Phys Exam - Physical Examination Constitutional: NAD HEENT: sclera anicteric Respiratory: clear to auscultation bilateral Cardiovascular: RRR Gastrointestinal: soft, non-tender, no distention Musculoskeletal: no edema Neurological: moves all 4 limbs Psychiatric: normal affect, A&O x 3 Skin: no rash Dx/Plan - Plan Plan: Gastroparesis versus chronic pancreatitis versus gastric pathology -continue Reglan, protonics, Zofran, Phenergan -Discontinue the Bentyl due to no bowel movements in the past few days. -Consult gastroenterology Dr. Dan, plans to perform EGD tomorrow morning, NPO at midnight -Will add a bowel regimen due to the patients recent constipation, recommended that she ambulate frequently Disp: med inpt for non npo tolerance. ELOS >48hr Addendum - Attending - Attending Attestation Date/Time: 12/12/19 5151 I personally evaluated the patient and discussed the management with Dr. Drummond I agree with the History, Examination, Assessment and Plan documented above with any addition or exceptions noted below - Patient without complaints. Afebrile VSS. A/P: 1) Persistent N/V- improved; continue to food trials with more frequent small meals. 2) Dizziness- trial of meclizine. 3) HTN- stable. Probable d/c home later today..
--- NOTE | 2019-12-11 01:03 | CON ---
DATE OF CONSULTATION: 12/10/2019 REASON FOR CONSULTATION: Recurrent nausea and vomiting, possible pancreatitis. CONSULTING PROVIDER: Peter Villanueva DO HISTORY OF PRESENT ILLNESS: The patient is a 49-year-old female with past medical history of chronic constipation, hypertension, hyperlipidemia, GERD, hemorrhagic CVA with residual deficits and depression, presenting with complaints of nausea and vomiting. She states that she was in her usual state of health until approximately 3 to 4 weeks ago when she had an episode of nausea and vomiting characterized as increased vomiting over the next 3 to 4 days and having approximately 3 to 4 discrete episodes of vomiting per day. However, she was brought to the [facility] ER, given medications with resolution of her symptoms and ultimately discharged. Since that time, she has been seen in the hospital on 2 separate occasions including this one with complaints of increased nausea and vomiting, again being episodic with the most recent occurring approximately 4 to 5 days ago with increased nausea for 2 days prior to the onset of vomiting, and then vomiting over the last 3 to 4 days again with 3 to 5 discrete episodes of vomiting per day. This is strongly associated with the ingestion of solids or liquids, where it would induce nausea and vomiting with ingestion of either. She did have one episode of blood-tinged emesis approximately 3 to 4 days ago, but it has not recurred. Along with this increased nausea and vomiting, she also endorses increased right upper quadrant abdominal pain that radiates to the right flank. It is characterized as a cramping type sensation, it is intermittent, meaning it would occur approximately 5 to 6 times per day and lasts for approximately 30 to 45 minutes in duration, and reaches a severity of 10/10. This pain is worse with eating and would occur within 5 minutes of eating or drinking and not having a bowel movement, better with drinking Sprite and lying down. Associated symptoms included dizziness, right upper quadrant abdominal pain, dysphagia and odynophagia. Currently, she denies any fevers, chills, diarrhea, melena, or weight loss. REVIEW OF SYSTEMS: A 10-category review of systems was obtained with all responses negative except for the pertinent positives as listed in HPI. PAST MEDICAL HISTORY: As per HPI. PAST SURGICAL HISTORY: Appendectomy, cholecystectomy, hysterectomy, and gastric sleeve surgery. FAMILY HISTORY: Endorses esophageal cancer in her brother, but no other GI malignancies. SOCIAL HISTORY: Prior history of smoking, but currently denies any tobacco, alcohol, or illicit drug use. OUTPATIENT MEDICATIONS: Reviewed. ALLERGIES: AMOXICILLIN. PHYSICAL EXAMINATION: VITAL SIGNS: Temperature 98.8, pulse 60, blood pressure 104/69, respiratory rate 16, saturating 98% on room air. GENERAL: The patient was lying in bed, in no acute distress. Alert and oriented x4. HEENT: Normocephalic, atraumatic. NECK: Supple. No JVD or scleral icterus noted. CARDIOVASCULAR: Regular rate and rhythm with no discernible murmurs, gallops, or rubs. RESPIRATORY: Clear to auscultation bilaterally with no discernible wheezes or rales. ABDOMEN: Normoactive bowel sounds. Soft, nondistended. Mild tenderness to palpation in the midepigastric region only. EXTREMITIES: No cyanosis, clubbing, or edema. LABORATORY DATA: CBC with a white blood cell count of 5.5, hemoglobin 10.8, hematocrit 33.7, platelets 166. Chemistry with a sodium of 136, potassium 3.6, chloride 106, CO2 of 26, BUN 4, creatinine 0.85, glucose 93. AST 27, ALT 20, alkaline phosphatase 96, total bilirubin 0.6, albumin 3.6, lipase 127. TSH 1.52. IMAGING DATA: CT of the abdomen and pelvis was obtained on December 09, 2019, which showed no acute intraabdominal abnormality or pelvic abnormality. ASSESSMENT AND PLAN: The patient is a 49-year-old female with past medical history of constipation, hypertension, hyperlipidemia, gastroesophageal reflux disease, hemorrhagic cerebrovascular accident with residual deficits and depression, presenting with recurrent episodes of nausea and vomiting and elevated lipase. Recurrent nausea and vomiting/abdominal pain: The patient is presenting with three discrete episodes of persisting nausea and vomiting, where she would have approximately 3 to 4 days of increased nausea with vomiting of nonbloody emesis. This was associated with increased right upper quadrant abdominal pain in addition to dysphagia and odynophagia. She does have a mildly elevated lipase at 127, but currently does not meet criteria for acute pancreatitis making this much less likely along with imaging not showing any evidence of pancreatitis as well. Given her history of a gastric sleeve surgery, acid reflux is a little bit more likely in terms of chronic acid exposure within the distal esophagus generating nausea and vomiting. However, a stricture or stenosis within the stomach or at the pyloric valve itself cannot be ruled out at this time. Differential could also include peptic ulcer disease, duodenitis, gastritis, esophagitis, and/or GI neoplasm. RECOMMENDATIONS: 1. We will continue with aggressive antiemetic support as you are doing. 2. Continue with IV fluid resuscitation. 3. We would attempt to minimize any narcotic administration as it could potentially contribute to gastroparesis. 4. Please make the patient n.p.o. at midnight in anticipation for EGD tomorrow for further evaluation. We will continue to follow. Please call with any questions. Job ID: [id number]
[2019-12-11] MEDS: Ondansetron ODT 4 MG TAB PO PRN (06:32)
--- NOTE | 2019-12-11 08:01 | PDOC.FM ---
- Subjective Subjective: Pt continues to not tolerate PO intake as of last night. Seen by Dr. Dan yesterday and plans for EGD today. Pt is hopeful this will reveal an answer. Agrees with plan of care. - Objective Vital Signs & Weight: Vital Signs (12 hours) Temp Pulse Resp BP Pulse Ox 12/11/19 05:10 98.5 F 61 16 97/66 98 12/10/19 20:00 98.8 F 60 16 104/69 98 Weight Admit Weight 87.997 kg Weight 88.36 kg I&O: 12/10/19 12/11/19 12/12/19 06:59 06:59 06:59 Intake Total 550 500 Balance 550 500 Result Diagrams: 12/09/19 05:47 12/08/19 10:01 Phys Exam - Physical Examination Constitutional: NAD HEENT: moist MMs No resp distress Gastrointestinal: soft, non-tender, no distention Hypoactive BS Musculoskeletal: no edema Neurological: moves all 4 limbs Psychiatric: normal affect, A&O x 3 Dx/Plan - Plan Plan: DDX: Gastroparesis, gastric/esophageal stricture/neoplasm/inflammation, GERD -continue Reglan, protonics, Zofran, Phenergan -Discontinue the Bentyl and opioids due to constipation and anti-motility effects -Dr. Dan to do an EGD today, appreciate recs -Frequent ambulation, bowel regimen Disp: med inpt for non npo tolerance. EGD today. Continue bowel and anti-emetic regimen. ELOS >48hr Addendum - Attending - Attending Attestation Date/Time: 12/11/191930 I personally evaluated the patient and discussed the management with Dr. Villanueva I agree with the History, Examination, Assessment and Plan documented above with any addition or exceptions noted below - Patient without complaints. Feeling better. Afebrile VSS. A/P: 1) Persistent N/V- EGD today with mild stricture at junction for gastric bypass- dilated as per GI; trial of diet and possible discharge in AM 2) HTN- stable; continue current meds.
[2019-12-11] MEDS: Metoclopramide HCl 10 MG/2 ML VIAL IVP SCH ×3 (08:41→20:43)
[2019-12-11] MEDS: busPIRone HCl 10 MG TAB PO SCH ×2 (08:41→20:43)
[2019-12-11] MEDS: Aspirin Chewable 81 MG TAB PO SCH (08:41)
[2019-12-11] MEDS: Enoxaparin Sodium 40 MG/0.4 ML SYRINGE SC SCH (08:41)
[2019-12-11] MEDS: Lisinopril 2.5 MG TAB PO SCH (08:41)
[2019-12-11] MEDS: Pantoprazole 40 MG VIAL IVP SCH (08:42)
[2019-12-11] MEDS ORDERED: PROPOFOL 200 MG/20 ML VIAL ONE (10:49)
--- NOTE | 2019-12-11 15:00 | OP ---
DATE OF PROCEDURE: 12/11/2019 PROCEDURE PERFORMED: Esophagogastroduodenoscopy with dilation. INDICATIONS FOR PROCEDURE: Nausea and vomiting, history of gastric bypass. DESCRIPTION OF PROCEDURE: After the risks and benefits of the procedure were explained to the patient including risks of bleeding, infection, perforation, reactions to anesthesia, aspiration, and/or pain, informed consent was obtained. The patient was then taken to the endoscopy suite where she was maneuvered into the left lateral decubitus position followed by introduction of deep sedation via propofol and anesthesia support. Once adequate sedation was achieved, the standard gastroscope was introduced into the mouth with intubation of the esophagus, stomach, and the proximal small intestines with the findings listed below. The patient tolerated the procedure well with no immediate perioperative complications. Upon conclusion of the procedure, all equipment was removed from the patient and she was transferred to PACU in satisfactory condition. FINDINGS: Esophagus: Normal-appearing mucosa was seen in the proximal, mid, and distal esophagus. There was an irregular Z-line seen at the gastroesophageal junction with one broad tongue of salmon-colored mucosa extending proximally, but it did not extend proximally more than 1 cm in length. Therefore, it was not biopsied for evaluation of Smith esophagus given its low potential for malignant transformation. Otherwise, there was no evidence of erosions, ulcerations, mass lesions, or active/recent bleeding. Stomach: Upon entering the stomach, surgical change consistent with a Chiquita-en-Y gastric bypass was encountered. The gastric pouch itself appeared normal with normal-appearing mucosa in the gastric cardia and what remained of the fundus. The gastrojejunal anastomosis was healthy in appearance, although the anastomosis orifice itself appeared a bit on the more narrow side. It was easily traversed with the standard gastroscope and advanced into the jejunum without difficulty; however, given this mildly narrow anastomosis, a CRE TTS esophageal balloon was advanced through the scope and placed in the anastomosis itself, starting at 18 mm, it was then dilated up to 20 mm in size with no significant change noted on deflation of the balloon/completion of that portion of the procedure. Otherwise, there was no evidence of erosions, ulcerations, mass lesions, active/recent bleeding, or anastomotic ulceration. Jejunum: The afferent limb was easily inspected and ended in a blind loop with normal-appearing mucosa. The efferent limb was then intubated to approximately 20 to 25 cm past the gastrojejunal anastomosis with normal-appearing mucosa seen there as well. There was no evidence of erosions, ulcerations, mass lesions, or active/recent bleeding. IMPRESSION: 1. Surgical change consistent with a Chiquita-en-Y gastric bypass encountered in the stomach with a mildly narrow gastrojejunal anastomosis, now dilated up to 20 mm. No significant change. 2. Otherwise normal upper endoscopy (no etiology for the patient's nausea and vomiting was seen). RECOMMENDATIONS: 1. Would continue the patient on a gastric bypass diet, starting with clear liquid diet for the time being and assess as tolerated. 2. Would continue with strict antiemetic medications as you are doing. 3. Would consider a gastric emptying study for evaluation of possible gastroparesis. 4. Would attempt to minimize any narcotics as it can affect the gastric emptying. 5. Would place the patient on smaller more frequent meals throughout the day and assess for tolerance. We will continue to follow. Please call with any questions again. Job ID: [id number]
[2019-12-11] MEDS: Atorvastatin Calcium 40 MG TAB PO SCH (20:43)
--- NOTE | 2019-12-12 07:51 | PDOC.FM ---
- Subjective Subjective: Patient doing well this morning. She tolerated clear liquid diet without much difficulty. She states that her biggest concern is some vertigo this morning. She also had it last night. She states she felt uneasy. Her alarm at her house went off, so she is really wanting to go home. - Objective MAR Reviewed: Yes Vital Signs & Weight: Vital Signs (12 hours) Temp Pulse Resp BP Pulse Ox 12/12/19 04:30 98.5 F 59 L 17 103/69 97 12/11/19 21:40 98.3 F 68 17 107/73 97 Weight Admit Weight 87.997 kg Weight 88.36 kg I&O: 12/11/19 12/12/19 12/13/19 06:59 06:59 06:59 Intake Total 500 900 Balance 500 900 Result Diagrams: 12/12/19 09:33 12/12/19 09:33 EKG Reviewed by me: Yes Radiology Reviewed by me: Yes Phys Exam - Physical Examination Constitutional: NAD HEENT: moist MMs Respiratory: no wheezing, clear to auscultation bilateral Cardiovascular: RRR, no significant murmur Gastrointestinal: soft, no distention, positive bowel sounds Minimally TTP in epigastric region Musculoskeletal: no edema, pulses present Neurological: non-focal, moves all 4 limbs Psychiatric: normal affect, A&O x 3 Skin: no rash, cap refill <2 seconds Dx/Plan (1) Hx of pancreatitis Code(s): Z87.19 - PERSONAL HISTORY OF OTHER DISEASES OF THE DIGESTIVE SYSTEM Status: Acute (2) Depression Code(s): F32.9 - MAJOR DEPRESSIVE DISORDER, SINGLE EPISODE, UNSPECIFIED Status : Acute (3) GERD (gastroesophageal reflux disease) Code(s): K21.9 - GASTRO-ESOPHAGEAL REFLUX DISEASE WITHOUT ESOPHAGITIS Status: Acute (4) Intractable nausea and vomiting Code(s): R11.2 - NAUSEA WITH VOMITING, UNSPECIFIED Status: Chronic (5) Obesity (BMI 30-39.9) Code(s): E66.9 - OBESITY, UNSPECIFIED Status: Chronic (6) Status post bariatric surgery Status: Chronic - Plan Plan: Intractable N/V s/p EGD with dilation of gastrojejunal anastomosis to 20 mm - Continue Reglan, protonics, Zofran, Phenergan; patient has not needed phenergan or zofran in last 24 hours - Discontinue the Bentyl and opioids due to constipation and anti-motility effects - s/p EGD with dilation - Frequent ambulation, bowel regimen - Patient tolerating clear liquid bariatric diet, will increase to regular bariatric diet Vertigo - Will trial meclizine Dispo: If patient tolerating regular diet this AM, will plan for d/c home. Addendum - Attending - Attending Attestation Date/Time: 12/12/19 0220 I personally evaluated the patient and discussed the management with Dr. Drmumond I agree with the History, Examination, Assessment and Plan documented above with any addition or exceptions noted below- Patient without complaints except dizziness. Afebrile VSS. A/P: 1) Perisstent N/V-improved; continue small frequent meals. 2) Dizziness- trial of meclizine
[2019-12-12] MEDS: Aspirin Chewable 81 MG TAB PO SCH (07:55)
[2019-12-12] MEDS: Enoxaparin Sodium 40 MG/0.4 ML SYRINGE SC SCH (07:56)
[2019-12-12] MEDS: busPIRone HCl 10 MG TAB PO SCH ×2 (07:56→20:21)
[2019-12-12] MEDS: Pantoprazole 40 MG VIAL IVP SCH (07:57)
[2019-12-12] MEDS: Metoclopramide HCl 10 MG/2 ML VIAL IVP SCH ×3 (07:57→20:22)
[2019-12-12] MEDS: Lisinopril 2.5 MG TAB PO SCH (07:57)
[2019-12-12] MEDS: Senokot 8.6 MG TAB PO PRN ×2 (08:15→20:25)
[2019-12-12 09:53] LABS: #Eosinphils 0.2 thou/uL (0.0-0.7); #Lymphocytes 1.7 thou/uL (1.20-3.40); #Monocytes 0.3 thou/uL (0.11-0.59); #Neutrophils 3.2 thou/uL (1.40-6.50); %Basophils 0.5 % (0.0-1.0); %Lymphocytes 30.6 % (21.0-51.0); %Monocytes 5.9 % (0.0-10.0); Hemoglobin 12.9 g/dL (12.0-16.0); Mean Corpuscular HGB CONC 33.8 g/dL (32.0-36.0); Mean Corpuscular Hemoglobin 30.7 pg (27.0-31.0); Mean Corpuscular Volume 90.8 fL (78.0-98.0); Mean Platelet Volume 8.9 fL (7.4-10.4); Platelet Count 279 thou/uL (130-400); RBC Distribution Width 12.5 % (11.5-14.5); White Blood Cell (WBC) Count 5.4 thou/uL (4.8-10.8)
[2019-12-12] MEDS ORDERED: Meclizine HCl 12.5 MG TAB PO SCH (10:00)
[2019-12-12 10:17] LABS: ALT (SGPT) 25 U/L (8-55); AST (SGOT) 37 U/L (5-34); Albumin 3.8 g/dL (3.5-5.0); Alkaline Phosphatase 104 U/L (40-110); Anion Gap 15 mmol/L (10-20); BUN (Urea Nitrogen) 5 mg/dL (7.0-18.7); Bilirubin, Total 0.8 mg/dL (0.2-1.2); Calc. Creatinine Clearance 116 mL/min (70-130); Calcium 8.9 mg/dL (7.8-10.44); Carbon Dioxide 18 mmol/L (22-29); Chloride 106 mmol/L (98-107); Estimated GFR-MDRD 90; Globulin 3.7 g/dL (2.4-3.5); Glucose 97 mg/dL (70-105); Potassium 3.7 mmol/L (3.5-5.1); Protein, Total 7.5 g/dL (6.0-8.3); Sodium 135 mmol/L (136-145)
--- NOTE | 2019-12-12 11:01 | EKG ---
Test Reason : Blood Pressure : / mmHG Vent. Rate : 053 BPM Atrial Rate : 053 BPM P-R Int : 196 ms QRS Dur : 074 ms QT Int : 406 ms P-R-T Axes : 021 001 001 degrees QTc Int : 380 ms Sinus bradycardia Otherwise normal ECG Confirmed by ISREAL DOOLEY DO ([id number]), design editor DALE GALVIN ([id number]) on 12/12/2019 11:01:05 AM Referred By: Confirmed By:ISREAL DOOLEY DO
[2019-12-12] MEDS: Ondansetron ODT 4 MG TAB PO PRN (13:33)
--- NOTE | 2019-12-12 14:58 | PRG ---
DATE OF SERVICE: 12/12/2019 REASON FOR CONSULTATION: Recurrent nausea and vomiting. SUBJECTIVE: The patient underwent upper endoscopy yesterday with relatively normal findings consistent with a Chiquita-en-Y gastric bypass. The gastrojejunal anastomosis did appear somewhat narrowed, so it was dilated to approximately 20 mm with no significant change. In the postoperative period, the patient has been able to tolerate a clear liquid diet without any difficulty and no further episodes of nausea and vomiting; however, this morning, she has been having some periodic episodes of vertigo primarily occurring when she gets up from a sitting to standing position. This has been associated with mild nausea, but no further episodes of vomiting for the last 24 to 48 hours. Currently, she denies any vomiting, fevers, chills, hematemesis, melena, hematochezia, abdominal pain, dysphagia, or odynophagia. OBJECTIVE: VITAL SIGNS: Temperature 98.2, pulse 68, blood pressure 102/68, respiratory rate 18, saturating 99% on room air. GENERAL: The patient is lying in bed, in no acute distress. Alert and oriented x4. CARDIOVASCULAR: Regular rate and rhythm. RESPIRATORY: Clear to auscultation bilaterally. ABDOMEN: Normoactive bowel sounds. Soft, nontender, nondistended. EXTREMITIES: No cyanosis, clubbing, or edema. LABORATORY DATA: No current studies are available for review. IMAGING DATA: The patient underwent upper endoscopy on December 11, 2019, which showed relatively normal findings within the esophagus and proximal jejunum. However, surgical change consistent with a Chiquita-en-Y gastric bypass was encountered in the stomach with a mildly narrow gastrojejunal anastomosis that was dilated up to 20 mm. No significant mucosal change was seen without dilation, but no clear etiology for her nausea and vomiting was seen during that exam. ASSESSMENT AND PLAN: The patient is a 49-year-old female with past medical history of constipation, hypertension, hyperlipidemia, gastroesophageal reflux disease, hemorrhagic cerebrovascular accident with residual deficits and depression, presenting with recurrent nausea, vomiting, and an elevated lipase. Recurrent nausea and vomiting/abdominal pain. The patient initially presented with 4 to 5 days history of increased nausea and vomiting, for 3 to 4 those days, that was associated with the ingestion of either solids or liquids and would occur every single time that she ingested anything. This was associated with increased right upper quadrant abdominal pain in addition to dysphagia and odynophagia. On evaluation in the ER, she did have a mildly elevated lipase at 127, but this level does not currently meet criteria for acute pancreatitis, making this a much mary diagnosis despite the fact that she has a history of chronic pancreatitis. Upper endoscopy was performed on December 11, 2019, which showed relatively normal findings except for a mildly narrow gastrojejunal anastomosis along with surgical change consistent with a Chiquita-en-Y gastric bypass. This gastrojejunal anastomosis was dilated to 20 mm. In the postoperative period, the patient has had no difficulty consuming clear liquids with no further episodes of vomiting. She currently has had some nausea, but it seems to be more related to episodes of dizziness, which seem to be positional in nature and could lend credence toward orthostatic hypotension. Recommendations; 1. Would advance the patient's diet as tolerated. 2. Would discontinue IV fluid resuscitation if the patient is able to tolerate adequate nutrition via an oral route. 3. Attempt to minimize any narcotics as it could potentially contribute to gastroparesis. 4. Strongly recommend instructing the patient about a true bariatric diet. 5. If the patient is able to tolerate a more solid diet, then she could be potentially discharged to home with followup in the outpatient clinic in the next few weeks. We will continue to follow while inpatient. Please call with any questions. Job ID: [id number]
[2019-12-12] MEDS: Atorvastatin Calcium 40 MG TAB PO SCH (20:21)
[2019-12-12] MEDS: traMADol HCl 50 MG TAB PO PRN (20:25)
[2019-12-13] MEDS: Ondansetron ODT 4 MG TAB PO PRN ×2 (02:37→13:38)
[2019-12-13] MEDS: traMADol HCl 50 MG TAB PO PRN ×2 (05:12→11:18)
[2019-12-13] MEDS: Aspirin Chewable 81 MG TAB PO SCH (08:00)
[2019-12-13] MEDS: Pantoprazole 40 MG VIAL IVP SCH (08:01)
[2019-12-13] MEDS: busPIRone HCl 10 MG TAB PO SCH ×2 (08:01→20:14)
[2019-12-13] MEDS: Enoxaparin Sodium 40 MG/0.4 ML SYRINGE SC SCH (08:01)
[2019-12-13] MEDS: Metoclopramide HCl 10 MG/2 ML VIAL IVP SCH ×3 (08:01→20:15)
[2019-12-13] MEDS: Lisinopril 2.5 MG TAB PO SCH (08:02)
--- NOTE | 2019-12-13 08:44 | PDOC.FM ---
- Subjective Subjective: Patient states she had a "bad night". She was experiencing abdominal discomfort. She has yet to have a bowel movement. She was unable to eat breakfast this AM. Patient not tolerating a diet yet. She wants to go home, but also wants to be better before discharge home. - Objective MAR Reviewed: Yes Vital Signs & Weight: Vital Signs (12 hours) Temp Pulse Resp BP Pulse Ox 12/13/19 08:02 75 12/13/19 06:55 97.9 F 75 18 108/61 100 Weight Admit Weight 87.997 kg Weight 88.36 kg I&O: 12/12/19 12/13/19 12/14/19 06:59 06:59 06:59 Intake Total 900 1050 Balance 900 1050 Result Diagrams: 12/12/19 09:33 12/12/19 09:33 EKG Reviewed by me: Yes Radiology Reviewed by me: Yes Phys Exam - Physical Examination Constitutional: NAD HEENT: moist MMs Respiratory: no wheezing, clear to auscultation bilateral Cardiovascular: RRR, no significant murmur Gastrointestinal: soft, no distention TTP in RUQ, positive ruano's sign. Hypoactive bowel sounds. Musculoskeletal: no edema, pulses present Neurological: non-focal, moves all 4 limbs Psychiatric: normal affect, A&O x 3 Skin: no rash, cap refill <2 seconds Dx/Plan (1) Intractable nausea and vomiting Code(s): R11.2 - NAUSEA WITH VOMITING, UNSPECIFIED Status: Chronic (2) Depression Code(s): F32.9 - MAJOR DEPRESSIVE DISORDER, SINGLE EPISODE, UNSPECIFIED Status : Acute (3) GERD (gastroesophageal reflux disease) Code(s): K21.9 - GASTRO-ESOPHAGEAL REFLUX DISEASE WITHOUT ESOPHAGITIS Status: Acute (4) Obesity (BMI 30-39.9) Code(s): E66.9 - OBESITY, UNSPECIFIED Status: Chronic (5) Status post bariatric surgery Status: Chronic - Plan Plan: Intractable N/V s/p EGD with dilation of gastrojejunal anastomosis to 20 mm - Continue Reglan, protonics, Zofran, Phenergan - Discontinue the Bentyl and opioids due to constipation and anti-motility effects - s/p EGD with dilation to 20 mm at gastrojejunal anastomosis - Frequent ambulation, bowel regimen - Patient did not tolerate full bariatric diet yesterday; patient now on full liquid bariatric diet - Significant RUQ abdominal pain this morning w/ positive ruano's sign. Will obtain RUQ ultrasound. Patient did have cholecystectomy for gallstones, but given she has not made significant improvement and is now experiencing RUQ abdominal pain, will evaluate further for stones in CBD or other etiology. Constipation - Increased bowel regimen - Patient has tolerated some diet and has not had BM in 8 days - Abdominal pain may be related to constipation Vertigo - Meclizine PRN Dispo: Discharge pending patient's ability to tolerate regular diet. ADAT. Addendum - Attending - Attending Attestation Date/Time: 12/13/19 2811 I personally evaluated the patient and discussed the management with Dr. Drummond I agree with the History, Examination, Assessment and Plan documented above with any addition or exceptions noted below - Patient vomited lunch yesterday; still not tolerating po. Afebrile VSS. A/P: 1) Persistent N/V - uncertain etiology; plan for RUQ USG due to pain today. 2) HTN- well controlled
[2019-12-13] MEDS ORDERED: Milk Of Magnesia 30 ML UDCUP PO SCH (08:45)
--- NOTE | 2019-12-13 09:33 | ULT ---
US Gallbladder RUQ: 12/13/2019 8:39 AM CLINICAL HISTORY: Right upper quadrant abdominal pain. History of cholecystectomy 5 years ago. STUDY: Limited right upper quadrant ultrasound of abdomen. COMPARISON: 09/10/2016 FINDINGS: Liver: Size: Normal. Echogenicity: Normal. Contour: Smooth. Mass: None. Bile ducts: No intrahepatic or extrahepatic biliary dilatation. Common bile duct measures 10 mm. Gallbladder: Removed Pancreas: Head, body, and tail appear normal. Right kidney: No pelvicalyceal dilatation. Right kidney measuring 9.8 cm in length. IMPRESSION: Enlargement of the common bile duct may be a reservoir effect from prior cholecystectomy.
[2019-12-13] MEDS: Senokot S 8.6-50 MG TAB PO SCH ×2 (09:40→20:14)
[2019-12-13] MEDS ORDERED: Magnesium Citrate 300 ML BOT PO SCH (19:15)
--- NOTE | 2019-12-13 19:43 | PRG ---
DATE OF SERVICE: 12/13/2019 REASON FOR CONSULTATION: Recurrent nausea and vomiting. SUBJECTIVE: Today, the patient states that she had been able to tolerate both the clear liquid and full liquid diet without any additional nausea and vomiting. However, when attempting to consume a more solid type diet, she did have increased abdominal pressure with mild nausea, but no vomiting. She also states that she has not had a bowel movement for approximately 8 days and is currently taking Linzess daily as an outpatient for chronic constipation. Currently, she denies any vomiting, fevers, chills, GI bleeding, dysphagia or odynophagia. OBJECTIVE: VITAL SIGNS: Temperature 97.9, pulse 75, blood pressure 108/61, respiratory rate 18, and saturating 100% on room air. GENERAL: The patient was lying in bed, in no acute distress. Alert and oriented x4. CARDIOVASCULAR: Regular rate and rhythm. RESPIRATORY: Clear to auscultation bilaterally. ABDOMEN: Normoactive bowel sounds. Soft, nondistended. Mild tenderness to palpation in the right upper quadrant and midepigastric regions. EXTREMITIES: No cyanosis, clubbing or edema. LABORATORY DATA: No studies are available for review. IMAGING DATA: Right upper quadrant ultrasound was performed on December 13, 2019, which showed no intrahepatic or extrahepatic biliary dilatation with the common bile duct measuring 10 mm in the post cholecystectomy setting. Both the pancreas and the right kidney appeared normal with the dilation of the common bile duct attributed to the reservoir effect from prior cholecystectomy. ASSESSMENT: The patient is a 49-year-old female with past medical history of constipation (on Linzess as an outpatient), hypertension, hyperlipidemia, gastroesophageal reflux disease, hemorrhagic cerebrovascular accident with residual deficits and depression, presenting with recurrent nausea, vomiting, and an elevated lipase. Recurrent nausea and vomiting/abdominal pain: The patient initially presented with a 4- to 5-day history of increased nausea and vomiting, that was associated with an increase in her right upper quadrant abdominal pain. During the course of this hospitalization, she underwent upper endoscopy on December 11, 2019, which showed surgical change consistent with a Chiquita-en-Y gastric bypass, but healthy appearing mucosa. The gastrojejunal anastomosis was somewhat narrowed, but subsequently dilated to 20 mm. In the postoperative period, the patient had no difficulty consuming clear or full liquids, but upon resuming a more solid type diet, has been having increased abdominal pressure, but no vomiting. She also states that her last bowel movement was approximately 8 days ago, for which the patient is currently taking Linzess 290 mcg as an outpatient. At this time, the abdominal pressure she is experiencing seems more constipation in nature rather than as the result of her nausea and vomiting. RECOMMENDATIONS: 1. We would advance the patient's diet as tolerated. 2. Attempt to minimize any narcotics as it could potentially contribute to constipation and gastroparesis. 3. I would order a bottle of magnesium citrate in order to facilitate defecation with severe constipation. 4. We would attempt to have the patient bring her outpatient Linzess from home to be used as an inpatient. We will continue to follow. Please call with any questions. Job ID: [id number]
[2019-12-13] MEDS: Polyethylene Glycol 3350 17 GM Packet PO SCH (20:14)
[2019-12-13] MEDS: Atorvastatin Calcium 40 MG TAB PO SCH (20:15)
[2019-12-13] MEDS: Meclizine HCl 12.5 MG TAB PO PRN (20:20)
[2019-12-14] MEDS: Ondansetron ODT 4 MG TAB PO PRN (06:27)
[2019-12-14] MEDS: traMADol HCl 50 MG TAB PO PRN ×2 (07:45→15:00)
--- NOTE | 2019-12-14 08:11 | PDOC.FM ---
- Subjective Subjective: Pt complaining of N/V/abdominal pain this morning that she relates to have to drink her lactulose rx in a short period of time which she states is very difficult since her gastric sleeve procedure. States her abdominal pain is similar to when she has overdone it and ate too fast in the past. She still has not had a BM and is attempting to get her linzess from home. Is hopeful to return home but wants to stay until better so she does not bounce back. - Objective Vital Signs & Weight: Vital Signs (12 hours) Temp Pulse Resp BP Pulse Ox 12/14/19 07:10 97.9 F 94 18 115/81 99 Weight Admit Weight 87.997 kg Weight 88.36 kg I&O: 12/13/19 12/14/19 12/15/19 06:59 06:59 06:59 Intake Total 1050 1100 Balance 1050 1100 Result Diagrams: 12/12/19 09:33 12/12/19 09:33 Phys Exam - Physical Examination Mild distress 2/2 abd pain HEENT: moist MMs No resp distress Cardiovascular: RRR Gastrointestinal: soft, no distention epigastric achiness with palpation Musculoskeletal: no edema Neurological: moves all 4 limbs Psychiatric: normal affect, A&O x 3 Dx/Plan - Plan Plan: Intractable N/V s/p EGD with dilation of gastrojejunal anastomosis to 20 mm - Continue Reglan, protonics, Zofran, Phenergan - s/p EGD with dilation to 20 mm at gastrojejunal anastomosis - Frequent ambulation, bowel regimen - Patient did not tolerate full bariatric diet yesterday; patient now on full liquid bariatric diet - RUQ US yesterday: 10 mm CBD likely related reservoir effect - CL diet today and AAT Constipation - Increased bowel regimen - Lactulose prn - Attempt to bring linzess from home Vertigo - Meclizine PRN Dispo: Discharge pending patient's ability to tolerate CL diet. ADAT.
[2019-12-14] MEDS: Aspirin Chewable 81 MG TAB PO SCH (08:57)
[2019-12-14] MEDS: busPIRone HCl 10 MG TAB PO SCH ×2 (08:58→22:16)
[2019-12-14] MEDS: Lisinopril 2.5 MG TAB PO SCH (08:58)
[2019-12-14] MEDS: Metoclopramide HCl 10 MG/2 ML VIAL IVP SCH ×3 (08:58→22:17)
[2019-12-14] MEDS: Senokot S 8.6-50 MG TAB PO SCH ×2 (08:58→22:16)
[2019-12-14] MEDS: Meclizine HCl 12.5 MG TAB PO PRN (09:02)
[2019-12-14] MEDS: Polyethylene Glycol 3350 17 GM Packet PO SCH ×2 (09:02→22:17)
[2019-12-14] MEDS: Pantoprazole 40 MG VIAL IVP SCH (09:03)
[2019-12-14] MEDS: Enoxaparin Sodium 40 MG/0.4 ML SYRINGE SC SCH (09:07)
--- NOTE | 2019-12-14 12:21 | PRG ---
DATE OF SERVICE: 12/14/2019 Ms. Andino is a pleasant 49-year-old lady who has had a Chiquita-en-Y gastric bypass in the past. She presented with intractable nausea and vomiting. She was seen in consultation by the GI Service and underwent a dilatation of her gastrojejunal anastomosis. She is feeling and looking better, but we are only very gradually increasing her diet. Job ID: [id number]
--- NOTE | 2019-12-14 12:25 | PRG ---
DATE OF SERVICE: 12/14/2019 REASON FOR CONSULTATION: Recurrent nausea and vomiting. SUBJECTIVE: Today, the patient states that she was able to tolerate a clear liquid diet without any difficulty overnight with no further episodes of nausea or vomiting. However, she does continue to have mild abdominal discomfort that is centered around the fact that she has not had a significant bowel movement in approximately 7 to 8 days. She was given magnesium citrate last night in order to facilitate having a bowel movement, but drank the medication too quickly, which resulted in her vomiting most of the solution. Otherwise, she denies any fevers, chills, hematemesis, melena, hematochezia, dysphagia, or odynophagia. OBJECTIVE: VITAL SIGNS: Temperature 97.9, pulse 94, blood pressure 115/81, respiratory rate 18, saturating 99% on room air. GENERAL: The patient was lying in bed, in no acute distress. Alert and oriented x4. CARDIOVASCULAR: Regular rate and rhythm. RESPIRATORY: Clear to auscultation bilaterally. ABDOMEN: Normoactive bowel sounds. Soft, nondistended. Mild tenderness to palpation in the periumbilical region. EXTREMITIES: No cyanosis, clubbing, or edema. LABORATORY DATA: No current studies are available for review. ASSESSMENT AND PLAN: The patient is a 49-year-old female with past medical history of constipation (on Linzess as an outpatient), hypertension, hyperlipidemia, gastroesophageal reflux disease, hemorrhagic cerebrovascular accident with residual deficits, and depression, presenting with nausea, vomiting, and elevated lipase, all which were now resolving. Recurrent nausea and vomiting/abdominal pain: The patient initially presented with a 4 to 5 day history of increased nausea and vomiting associated with increasing right upper quadrant abdominal pain. During the course of this hospitalization, she underwent an upper endoscopy on December 11, 2019, which showed surgical change of the stomach consistent with a Chiquita-en-Y gastric bypass, but otherwise healthy appearing mucosa. The gastrojejunal anastomosis was somewhat narrowed, so was subsequently dilated to 20 mm. In the postoperative setting, the patient has been able to tolerate liquids without any difficulty with resolution of her nausea and vomiting. Recommendations: 1. Would continue to advance the patient's diet as tolerated. 2. Attempt to minimize any narcotics. 3. Constipation. 4. The patient is presenting with a longstanding history of constipation for which the patient had been placed on Linzess 290 mcg daily as an outpatient. However, during the course of this hospitalization, she has not received this particular medication and is complaining that her last bowel movement was approximately 7 to 8 days ago. She was given magnesium citrate on December 13, 2019, but could not tolerate the medication due to increased abdominal pressure with drinking things very quickly (which is normal for this patient with her Chiquita-en-Y gastric bypass). At this time, her abdominal pain/abdominal discomfort may be secondary to increasing constipation related to narcotic administration at home. RECOMMENDATIONS: 1. Would attempt to have the patient bring her Linzess from home and restart as an inpatient if the patient is going to be here for much longer. 2. Agree with MiraLAX 17 g twice daily. 3. Repeat attempt at magnesium citrate could be considered, but drinking at a much slower rate. We will sign off at this time. Please call with any questions. The patient will be discharged soon. Would have her follow up in the outpatient GI Clinic within 2 weeks for continued monitoring. Job ID: [id number]
[2019-12-14] MEDS: Ondansetron PF 4 MG/2 ML Vial IVP PRN (12:59)
[2019-12-14] MEDS: Promethazine HCl 25 MG in Sodium Chloride 0.9% 50 ML IVPB PRN (17:10)
[2019-12-14] MEDS: Atorvastatin Calcium 40 MG TAB PO SCH (22:16)
[2019-12-15] MEDS ORDERED: Lactated Ringer's 1,000 ML IV SCH (01:00)
[2019-12-15] MEDS: Ondansetron PF 4 MG/2 ML Vial IVP PRN ×2 (04:13→14:55)
[2019-12-15] MEDS: Lactated Ringer's 1,000 ML IV SCH ×3 (05:27→19:00)
[2019-12-15] MEDS: Promethazine HCl 25 MG in Sodium Chloride 0.9% 50 ML IVPB PRN ×2 (07:51→19:32)
--- NOTE | 2019-12-15 08:29 | PDOC.FM ---
- Subjective Subjective: Had some dizziness last night that improved with 1L bolus. This morning is sleepy due to taking her phenergan later in the night. Denies any N/V this morning. States her abdominal pain has improved since the other day when she drank her lactulose quickly. - Objective Vital Signs & Weight: Vital Signs (12 hours) Temp Pulse Resp BP BP Pulse Ox 12/15/19 07:38 98.2 F 60 20 90/60 98 12/15/19 04:00 54 L 98/65 97 12/15/19 02:55 101/67 12/15/19 02:38 96/62 12/15/19 01:17 58 L 90/58 L 96 12/15/19 00:26 57 L 94/63 12/14/19 20:45 97/64 Weight Admit Weight 87.997 kg Weight 84.538 kg I&O: 12/14/19 12/15/19 12/16/19 06:59 06:59 06:59 Intake Total 1100 1940 Balance 1100 1940 Result Diagrams: 12/12/19 09:33 12/12/19 09:33 Phys Exam - Physical Examination Constitutional: NAD HEENT: sclera anicteric Respiratory: clear to auscultation bilateral Cardiovascular: RRR Gastrointestinal: soft, non-tender, no distention Neurological: moves all 4 limbs Psychiatric: normal affect, A&O x 3 Dx/Plan - Plan Plan: Intractable N/V s/p EGD with dilation of gastrojejunal anastomosis to 20 mm - Continue Reglan, protonics, Zofran, Phenergan - Has not tolerated CL diet - Gastric emptying study ordered for today, pt NPO Constipation - miralax bid, linzess Vertigo - Meclizine PRN - Occurred again last night with low BP - given 1L LR bolus Dispo: Discharge pending patient's ability to tolerate CL diet. Gastric emptying study ordered for today. Addendum - Attending - Attending Attestation Date/Time: 12/15/19 1125 I personally evaluated the patient and discussed the management with Dr. Villanueva. I agree with the History, Examination, Assessment and Plan documented above with any addition or exceptions noted below. Patient here with continued PO intolerance and abdominal pain. Gastric emptying study. GI has thoroughly evaluated and hopes for PO escalation and dc in near future. Once her emptying study complete, we can hopefully escalate diet and near dc criteria.
[2019-12-15] MEDS: Senokot S 8.6-50 MG TAB PO SCH ×2 (09:30→21:43)
[2019-12-15] MEDS: Polyethylene Glycol 3350 17 GM Packet PO SCH ×2 (09:30→21:43)
[2019-12-15] MEDS: busPIRone HCl 10 MG TAB PO SCH ×2 (09:30→21:43)
[2019-12-15] MEDS: Aspirin Chewable 81 MG TAB PO SCH (09:30)
[2019-12-15] MEDS: Lisinopril 2.5 MG TAB PO SCH (09:59)
[2019-12-15] MEDS: Pantoprazole 40 MG VIAL IVP SCH (09:59)
[2019-12-15] MEDS: Enoxaparin Sodium 40 MG/0.4 ML SYRINGE SC SCH (09:59)
[2019-12-15] MEDS: Metoclopramide HCl 10 MG/2 ML VIAL IVP SCH ×3 (09:59→21:43)
--- NOTE | 2019-12-15 15:33 | NM ---
Nuclear medicine gastric emptying evaluation INDICATION: Intolerance heel intake with nausea vomiting with all meals Radiopharmaceutical: 1.9 mCi of technetium 99m sulfur colloid orally with eggs FINDINGS: At the 26 minute time christiana, a substantial amount of the radiotracer had already passed with in the small bowel from the stomach. Correlating to the patient's prior CT the abdomen and pelvis dated 12/09/2019, the patient has a gastric bypass. There is minimal radiotracer activity conforming t o the gastric pouch at the 30 minute, 3 hour and 4 hour time christiana. Increased gastric pouch activity is noted at the 60 minute and 2 hour time christiana which may reflect a component of gastroenteric reflux. The exam is essentially nondiagnostic to accurately describe the gastric emptying. IMPRESSION: Rapid gastric emptying of the radiotracer at the 26 minute time christiana likely due to the pa tient having gastric bypass. There is increased gastric pouch radiotracer accumulation at the 60 minute and 2 hour time christiana which is likely indicative of some gastroenteric reflux.
[2019-12-15] MEDS: traMADol HCl 50 MG TAB PO PRN (15:57)
[2019-12-15] MEDS: Atorvastatin Calcium 40 MG TAB PO SCH (21:43)
[2019-12-16] MEDS: Lactated Ringer's 1,000 ML IV SCH ×3 (03:49→20:09)
[2019-12-16] MEDS: Ondansetron PF 4 MG/2 ML Vial IVP PRN (03:49)
--- NOTE | 2019-12-16 07:15 | PDOC.FM ---
- Subjective Subjective: Pts notes continuous nausea since attempting mag citrate a few days ago. Denies much abdominal pain. States she is passing gas but no BM. Currently slowly working on eating her breakfast. - Objective Vital Signs & Weight: Vital Signs (12 hours) Temp Pulse Resp BP BP Pulse Ox 12/16/19 00:22 58 L 99/67 12/15/19 20:00 98.3 F 60 16 99/65 96 Weight Admit Weight 87.997 kg Weight 84.538 kg I&O: 12/15/19 12/16/19 12/17/19 06:59 06:59 06:59 Intake Total 1939 3100 Balance 1939 3100 Result Diagrams: 12/12/19 09:33 12/12/19 09:33 Phys Exam - Physical Examination Constitutional: NAD HEENT: sclera anicteric No resp distress Gastrointestinal: soft, non-tender, no distention, positive bowel sounds Neurological: moves all 4 limbs Psychiatric: normal affect, A&O x 3 Dx/Plan - Plan Plan: Intractable N/V s/p EGD with dilation of gastrojejunal anastomosis to 20 mm - Continue Reglan, protonics, Zofran, Phenergan - AAT CL diet today with goal of tolerating 50% of half her full liquid diet meals - Gastric emptying study showed gastroenteric reflux - Changed phenergan to PO prn QID, reglan to QID Constipation - miralax bid, linzess - KUB this morning Dispo: Discharge pending patient's ability to tolerate CL diet. Gastric emptying study yesterday non-diagnostic but suggestive of gastroenteric reflux. Addendum - Attending - Attending Attestation Date/Time: 12/16/19 1012 I personally evaluated the patient and discussed the management with Dr. Villanueva. I agree with the History, Examination, Assessment and Plan documented above with any addition or exceptions noted below. Patient needs to escalate diet so she can be discharged. She has been thoroughly worked up, and GI has evaluated and signed off the case. Emptying study yesterday did not reveal gastroparesis. Once her diet is escalated to anything substantial, she will be stable for discharge.
[2019-12-16] MEDS: Metoclopramide 10 MG/10 ML UDCUP PO SCH ×4 (08:11→20:12)
[2019-12-16] MEDS: Aspirin Chewable 81 MG TAB PO SCH (08:11)
[2019-12-16] MEDS: Polyethylene Glycol 3350 17 GM Packet PO SCH ×2 (08:11→20:08)
[2019-12-16] MEDS: busPIRone HCl 10 MG TAB PO SCH ×2 (08:12→20:09)
[2019-12-16] MEDS: Senokot S 8.6-50 MG TAB PO SCH ×2 (08:12→20:08)
[2019-12-16] MEDS: Pantoprazole 40 MG VIAL IVP SCH (08:12)
[2019-12-16] MEDS: Enoxaparin Sodium 40 MG/0.4 ML SYRINGE SC SCH (08:12)
[2019-12-16] MEDS: Lisinopril 2.5 MG TAB PO SCH (08:13)
[2019-12-16] MEDS: Promethazine 25 MG TAB PO PRN ×3 (09:26→22:22)
--- NOTE | 2019-12-16 12:59 | RAD ---
KUB INDICATION: No bowel movement for one week COMPARISON: February 17, 2015 FINDINGS: Bowel gas: Nonspecific but without overt appearance of obstruction. Lung bases: Not seen Additional findings: There are small phleboliths within the lower pelvis. There are post sternotomy c lips within the right upper quadrant. No suspicious calcifications are evident. Osseous structures: No acute osseous abnormality is demonstrated. IMPRESSION: 1. No acute abnormality.
[2019-12-16] MEDS ORDERED: traMADol HCl 50 MG TAB PO SCH (18:15)
[2019-12-16] MEDS: Atorvastatin Calcium 40 MG TAB PO SCH (20:09)
[2019-12-17] MEDS: Acetaminophen 325 MG TAB PO PRN ×2 (03:50→19:58)
[2019-12-17] MEDS: Promethazine 25 MG TAB PO PRN ×2 (03:50→19:58)
[2019-12-17] MEDS: Lactated Ringer's 1,000 ML IV SCH ×3 (03:50→19:57)
[2019-12-17 06:29] LABS: #Basophils 0.1 thou/uL (0.0-0.2); #Eosinphils 0.4 thou/uL (0.0-0.7); #Lymphocytes 1.8 thou/uL (1.20-3.40); #Monocytes 0.3 thou/uL (0.11-0.59); #Neutrophils 2.1 thou/uL (1.40-6.50); %Basophils 1.6 % (0.0-1.0); %Eosinophils 7.6 % (0.0-10.0); %Monocytes 7.3 % (0.0-10.0); %Neutrophils 44.5 % (42.0-75.0); Hemoglobin 12.2 g/dL (12.0-16.0); Mean Corpuscular HGB CONC 33.5 g/dL (32.0-36.0); Mean Corpuscular Hemoglobin 30.9 pg (27.0-31.0); Mean Corpuscular Volume 92.1 fL (78.0-98.0); Platelet Count 237 thou/uL (130-400); RBC Distribution Width 12.3 % (11.5-14.5); Red Blood Cell (RBC) Count 3.96 mill/uL (4.20-5.40); White Blood Cell (WBC) Count 4.6 thou/uL (4.8-10.8)
--- NOTE | 2019-12-17 06:48 | PDOC.FM ---
- Subjective Subjective: Pt notes some mild improvement in her PO intake and nausea yesterday. States she did have an episode of vomiting but it was not much in volume and she was able to get down a fair bit of her meal first. Denies any continued abdominal pain this morning. - Objective Vital Signs & Weight: Vital Signs (12 hours) Temp Pulse Resp BP Pulse Ox 12/17/19 04:06 98/63 12/17/19 00:08 104/72 12/16/19 20:00 97 12/16/19 19:25 98.2 F 62 18 97/67 97 Weight Admit Weight 87.997 kg Weight 84.538 kg I&O: 12/15/19 12/16/19 12/17/19 06:59 06:59 06:59 Intake Total 1940 3100 3500 Balance 1940 3100 3500 Result Diagrams: 12/17/19 06:21 12/17/19 06:21 Phys Exam - Physical Examination Constitutional: NAD HEENT: moist MMs, sclera anicteric No resp distress Cardiovascular: RRR Gastrointestinal: soft, non-tender, no distention Musculoskeletal: no edema Neurological: moves all 4 limbs Psychiatric: normal affect, A&O x 3 Dx/Plan - Plan Plan: Intractable N/V s/p EGD with dilation of gastrojejunal anastomosis to 20 mm - Continue Reglan, protonics, Zofran, Phenergan - AAT CL diet today with goal of tolerating 50% of half her full liquid diet meals in a day - Gastric emptying study showed gastroenteric reflux - Changed phenergan to PO prn QID, reglan to александр ACHS, zofran AC - Dietary recommending consideration for PPN Constipation - miralax bid, linzess - KUB this morning Dispo: Discharge pending patient's ability to tolerate CL diet. Adjusting anti- emetics and bowel regimen. Addendum - Attending - Attending Attestation Date/Time: 12/17/19 0527 I personally evaluated the patient and discussed the management with Dr. Villanueva. I agree with the History, Examination, Assessment and Plan documented above with any addition or exceptions noted below. Diet escalation. Stable for discharge once that is accomplished.
[2019-12-17 07:02] LABS: ALT (SGPT) 19 U/L (8-55); AST (SGOT) 30 U/L (5-34); Albumin 3.4 g/dL (3.5-5.0); Alkaline Phosphatase 87 U/L (40-110); Anion Gap 13 mmol/L (10-20); BUN (Urea Nitrogen) Less than 4 mg/dL (7.0-18.7); Bilirubin, Total 0.5 mg/dL (0.2-1.2); Calc. Creatinine Clearance 124 mL/min (70-130); Calcium 8.4 mg/dL (7.8-10.44); Carbon Dioxide 21 mmol/L (22-29); Chloride 107 mmol/L (98-107); Estimated GFR-MDRD Greater than 90; Globulin 3.2 g/dL (2.4-3.5); Glucose 76 mg/dL (70-105); Magnesium 1.7 mg/dL (1.6-2.6); Phosphorus 3.4 mg/dL (2.3-4.7); Potassium 3.9 mmol/L (3.5-5.1); Protein, Total 6.6 g/dL (6.0-8.3); Sodium 137 mmol/L (136-145)
[2019-12-17] MEDS: Ondansetron ODT 4 MG TAB PO SCH ×3 (07:54→17:22)
[2019-12-17] MEDS: Enoxaparin Sodium 40 MG/0.4 ML SYRINGE SC SCH (07:54)
[2019-12-17] MEDS: Pantoprazole 40 MG VIAL IVP SCH (07:54)
[2019-12-17] MEDS: Metoclopramide 10 MG/10 ML UDCUP PO SCH ×4 (07:54→20:08)
[2019-12-17] MEDS: Polyethylene Glycol 3350 17 GM Packet PO SCH ×2 (07:54→19:58)
[2019-12-17] MEDS: Senokot S 8.6-50 MG TAB PO SCH ×2 (07:55→19:57)
[2019-12-17] MEDS: busPIRone HCl 10 MG TAB PO SCH ×2 (07:55→19:57)
[2019-12-17] MEDS: Aspirin Chewable 81 MG TAB PO SCH (07:55)
[2019-12-17] MEDS: Lisinopril 2.5 MG TAB PO SCH (07:56)
[2019-12-17] MEDS: Ondansetron PF 4 MG/2 ML Vial IVP SCH ×3 (07:56→17:23)
[2019-12-17] MEDS ORDERED: Lidocaine 2% Viscous Solution 10 ML, Aluminum & Magnesium Hydroxide 30 ML SSW SCH (09:45)
[2019-12-17] MEDS: Sucralfate 1 GM/10 ML UDCUP PO SCH ×2 (11:35→17:22)
[2019-12-17] MEDS: Atorvastatin Calcium 40 MG TAB PO SCH (19:57)
[2019-12-18] MEDS: Promethazine 25 MG TAB PO PRN ×3 (04:51→20:07)
--- NOTE | 2019-12-18 07:28 | PDOC.FM ---
- Subjective Subjective: Pt states that she tolerated her meals yesterday - however with difficulty. Agrees with plan to advance to regular diet today for more solid foods. Denies any abdominal pain. States the carafate helped with her reflux burning sx. - Objective Vital Signs & Weight: Vital Signs (12 hours) Pulse Ox 12/17/19 20:00 99 Weight Admit Weight 87.997 kg Weight 84.113 kg I&O: 12/17/19 12/18/19 12/19/19 06:59 06:59 06:59 Intake Total 3500 3530 Output Total 0 Balance 3500 3530 Result Diagrams: 12/17/19 06:21 12/17/19 06:21 Phys Exam - Physical Examination Constitutional: NAD HEENT: moist MMs, sclera anicteric No resp distress Gastrointestinal: soft, non-tender Musculoskeletal: pulses present Neurological: moves all 4 limbs Psychiatric: normal affect, A&O x 3 Dx/Plan - Plan Plan: Intractable N/V s/p EGD with dilation of gastrojejunal anastomosis to 20 mm - Continue Reglan, protonics, Zofran, Phenergan, carafate - Diet advanced to regular today, if tolerates half these meals will proceed with DC later today vs tomorrow - Dietary recommending consideration for PPN, however pt recently tolerating more PO intake, will hold for now Constipation - miralax bid, linzess Dispo: Discharge pending patient's ability to tolerate CL diet. Adjusting anti- emetics and bowel regimen. Addendum - Attending - Attending Attestation Date/Time: 12/18/19 1009 I personally evaluated the patient and discussed the management with Dr. Villanueva. I agree with the History, Examination, Assessment and Plan documented above with any addition or exceptions noted below.
[2019-12-18] MEDS: Enoxaparin Sodium 40 MG/0.4 ML SYRINGE SC SCH (08:01)
[2019-12-18] MEDS: Pantoprazole 40 MG VIAL IVP SCH (08:01)
[2019-12-18] MEDS: Polyethylene Glycol 3350 17 GM Packet PO SCH ×2 (08:02→20:13)
[2019-12-18] MEDS: busPIRone HCl 10 MG TAB PO SCH ×2 (08:02→20:07)
[2019-12-18] MEDS: Lisinopril 2.5 MG TAB PO SCH (08:02)
[2019-12-18] MEDS: Aspirin Chewable 81 MG TAB PO SCH (08:02)
[2019-12-18] MEDS: Ondansetron ODT 4 MG TAB PO SCH ×3 (08:02→17:40)
[2019-12-18] MEDS: Senokot S 8.6-50 MG TAB PO SCH ×2 (08:02→20:07)
[2019-12-18] MEDS: Lactated Ringer's 1,000 ML IV SCH ×2 (08:03→17:06)
[2019-12-18] MEDS: Ondansetron PF 4 MG/2 ML Vial IVP SCH ×3 (08:03→17:28)
[2019-12-18] MEDS: Sucralfate 1 GM/10 ML UDCUP PO SCH ×3 (08:14→17:30)
[2019-12-18] MEDS: Metoclopramide 10 MG/10 ML UDCUP PO SCH ×4 (08:23→20:07)
[2019-12-18] MEDS ORDERED: Preparation H HC 1% Cream 26 GM TUBE TOP PRN (08:57)
[2019-12-18] MEDS: Acetaminophen 325 MG TAB PO PRN (09:52)
[2019-12-18] MEDS ORDERED: Lidocaine 4% Topical Sol 50 ML BOT TOP PRN (12:11)
[2019-12-18] MEDS ORDERED: Lidocaine 2% Jelly 30 GM TUBE TOP PRN (12:18)
[2019-12-18] MEDS ORDERED: D5W-AA 4.25% with LYTES 1,000 ML BAG IV SCH (13:30)
[2019-12-18] MEDS ORDERED: D5W AA 4.25% IV SCH (16:30)
[2019-12-18] MEDS ORDERED: LYTES IV SCH (16:30)
[2019-12-18] MEDS: D5W-AA 4.25% with LYTES 1,000 ML IV SCH (17:30)
[2019-12-18] MEDS ORDERED: Magnesium Citrate 300 ML BOT PO SCH (18:30)
--- NOTE | 2019-12-18 18:54 | PRG ---
DATE OF SERVICE: 12/18/2019 SUBJECTIVE: Ms. Andino threw up her breakfast. She ate a few eggs and then vomited. She had been tolerating the liquids pretty well before that. She states that she still had no bowel movement since admission. She had taken a bottle of Mag citrate, but threw it up previously. She has been sipping on some MiraLAX, but not really getting in full doses. She just started the Linzess back around 3 days ago, but has not had any results with that. She has been taking the ondansetron scheduled 3 times a day. PHYSICAL EXAMINATION: VITAL SIGNS: Temperature 98.1, pulse 60, blood pressure 106/73. GENERAL: She is in no acute distress. Alert and oriented x3. HEENT: Eyes have no scleral icterus. Oropharynx is clear without lesions. No cervical or supraclavicular lymphadenopathy. LUNGS: Clear to auscultation bilaterally. HEART: Regular rate and rhythm without murmur. ABDOMEN: Soft, nontender, and nondistended. Bowel sounds are present. EXTREMITIES: No lower extremity edema. IMPRESSION: Chronic nausea and vomiting. She had gastric bypass around 13 years ago. Upper endoscopy earlier this hospital stay by Dr. Dan was unremarkable other than the postoperative changes. No ulcer or significant anastomotic stricture was identified. No significant esophagitis. Her nausea could be worsened by her constipation as well. She states that she has had no bowel movement since admission. She has only been sipping on partial doses of the MiraLAX. She just started the Linzess 3 days ago, but has not had any results as of yet. The Zofran may be significantly worsening her constipation. RECOMMENDATIONS: 1. Stop ondansetron. Promethazine can be used for the nausea, but the constipation secondary to the ondansetron may be just making things worse. 2. Repeat a bottle of Mag citrate, but take it slowly over a period of time so that she would not throw right back up. 3. Continue Linzess. 4. We might need to repeat stimulant laxatives tomorrow. I did review her abdominal x-ray and could not appreciate a large amount of stool retained, but if she truly had not had a bowel movement since admission and already has underlying chronic constipation problems, this may be a significant part of her issue. 5. I would hold off fibrous vegetables and solid food for now. I will back off to full liquids and she can get all the nutrition that she needs with the full liquids and she has tolerated that well. When she is having bowel movements and her nausea is better, then we can advance to a soft diet. Job ID: [id number]
[2019-12-18] MEDS: Atorvastatin Calcium 40 MG TAB PO SCH (20:07)
[2019-12-19] MEDS: Lactated Ringer's 1,000 ML IV SCH ×2 (00:43→07:59)
[2019-12-19] MEDS: Promethazine 25 MG TAB PO PRN ×3 (05:50→19:47)
--- NOTE | 2019-12-19 06:15 | PDOC.FM ---
- Subjective Subjective: Patient was resting comfortably in bed at the time of evaluation. She denied any acute overnight events, with the exception of some mild to moderate GERD symptoms. - Objective Vital Signs & Weight: Vital Signs (12 hours) Temp Pulse Resp BP Pulse Ox 12/18/19 20:00 98.1 F 63 18 92/62 96 Weight Admit Weight 87.997 kg Weight 83.631 kg I&O: 12/17/19 12/18/19 12/19/19 06:59 06:59 06:59 Intake Total 3500 3530 3400 Output Total 0 Balance 3500 3530 3400 Result Diagrams: 12/17/19 06:21 12/17/19 06:21 Phys Exam - Physical Examination Constitutional: NAD HEENT: PERRLA, moist MMs, sclera anicteric, oral pharynx no lesions Neck: supple, full ROM Respiratory: no wheezing, no rales, no rhonchi, clear to auscultation bilateral Cardiovascular: RRR, no significant murmur, no rub Gastrointestinal: soft, non-tender, no distention Reduced bowel sounds Musculoskeletal: no edema, pulses present Neurological: non-focal, moves all 4 limbs Lymphatic: no nodes Psychiatric: normal affect Skin: no rash, cap refill <2 seconds Dx/Plan (1) Hx of pancreatitis Code(s): Z87.19 - PERSONAL HISTORY OF OTHER DISEASES OF THE DIGESTIVE SYSTEM Status: Acute (2) Abdominal pain Code(s): R10.9 - UNSPECIFIED ABDOMINAL PAIN Status: Acute (3) Atypical chest pain Code(s): R07.89 - OTHER CHEST PAIN Status: Acute (4) History of hypertension Code(s): Z86.79 - PERSONAL HISTORY OF OTHER DISEASES OF THE CIRCULATORY SYSTEM Status: Acute (5) History of cerebrovascular accident (CVA) with residual deficit Code(s): I69.30 - UNSPECIFIED SEQUELAE OF CEREBRAL INFARCTION Status: Chronic (6) Intractable nausea and vomiting Code(s): R11.2 - NAUSEA WITH VOMITING, UNSPECIFIED Status: Chronic - Plan Plan: Patient is a 49 y/o female who presented to the ED on 12/03 for evaluation atypical chest pain and intractable N/V. 1. Intractable N/V s/p EGD with dilation of Gastrojejunal Anastomosis to 20 mm - Will continue Reglan, Protonics, Phenergan, Carafate - Diet: TPN (12/17) - will slowly attempt to advance as tolerated from Bariatric Full Liquid - GI: Re-consulted, recs appreciated - will d/c Zofran and consider additional dose of stimulant laxatives today 2. Constipation - Likely contributing factor to #1 - Miralax, Senokot, Linzess, Mg Citrate - 1 bowel movement recorded on 12/18 Dispo: Patient is currently stable and admitted to the Medical Floor following a prolonged evaluation for Intractable Nausea and Vomiting. GI re-consulted, recs appreciated. Will continue to encourage a slow progression of PO intake and treat Nausea, Vomiting, and Constipation as per above. Expected LOS > 48H.
[2019-12-19] MEDS ORDERED: Calcium Carbonate 500 MG ChewTAB PO SCH (07:00)
[2019-12-19] MEDS: Polyethylene Glycol 3350 17 GM Packet PO SCH ×2 (07:56→21:34)
[2019-12-19] MEDS: Sucralfate 1 GM/10 ML UDCUP PO SCH ×3 (07:56→16:55)
[2019-12-19] MEDS: Pantoprazole 40 MG VIAL IVP SCH (07:57)
[2019-12-19] MEDS: Enoxaparin Sodium 40 MG/0.4 ML SYRINGE SC SCH (07:57)
[2019-12-19] MEDS: Metoclopramide 10 MG/10 ML UDCUP PO SCH ×4 (07:57→21:34)
[2019-12-19] MEDS: Lisinopril 2.5 MG TAB PO SCH ×2 (07:58→08:21)
[2019-12-19] MEDS: Aspirin Chewable 81 MG TAB PO SCH (07:58)
[2019-12-19] MEDS: Senokot S 8.6-50 MG TAB PO SCH ×2 (07:58→21:34)
[2019-12-19] MEDS: busPIRone HCl 10 MG TAB PO SCH ×2 (07:58→21:34)
[2019-12-19] MEDS: D5W-AA 4.25% with LYTES 1,000 ML IV SCH (08:20)
--- NOTE | 2019-12-19 12:44 | PRG ---
DATE OF SERVICE: 12/19/2019 SUBJECTIVE: Ms. Andino is about [address] her bottle of magnesium citrate. She has had no bowel movement yet. She has little appetite. OBJECTIVE: VITAL SIGNS: Temperature 97.9, pulse 67, and blood pressure 96/68. GENERAL: She is in no acute distress. Alert and oriented x3. LUNGS: Clear to auscultation bilaterally. HEART: Regular rate and rhythm without murmur. ABDOMEN: Soft, nontender, and nondistended. Bowel sounds are present. EXTREMITIES: No lower extremity edema. IMPRESSION: 1. Chronic nausea. 2. Constipation. She reports no bowel movements since admission. She is working on a bottle of magnesium citrate now. 3. 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 RECOMMENDATIONS: 1. Dulcolax suppository and repeat magnesium citrate as needed. Continue to push liquid diet. 2. Ondansetron is held due to side effects of constipation. She can receive Phenergan as needed. Job ID: [id number]
[2019-12-19] MEDS ORDERED: Bisacodyl 10 MG SUPP PR SCH (12:45)
[2019-12-19] MEDS: Acetaminophen 325 MG TAB PO PRN (19:47)
[2019-12-19] MEDS: Atorvastatin Calcium 40 MG TAB PO SCH (21:34)
--- NOTE | 2019-12-19 21:53 | PRG ---
DATE OF SERVICE: 12/19/2019 Please see the note from Dr. Ramirez, for which I agree. The patient was seen, evaluated, discussed, and examined with the residents by the bedside. This is a very complicated patient who either had a Chiquita-en-Y procedure or gastric sleeve procedure and keeps having problems with GI issues, with chronic nausea, vomiting, and pain, also constipation as well. She got scoped and did not really find too much. Taking Mag citrate and Linzess, may consider something like Remeron just to kind of help with the chronic nausea and just agitation part of this whole thing as well. Of note, recent blood work looks pretty benign. Job ID: [id number]
[2019-12-20] MEDS: D5W-AA 4.25% with LYTES 1,000 ML IV SCH ×2 (01:46→18:32)
[2019-12-20] MEDS: Promethazine 25 MG TAB PO PRN ×3 (06:03→22:51)
--- NOTE | 2019-12-20 06:35 | PDOC.FM ---
- Subjective Subjective: Patient was resting comfortably in bed at the time of evaluation. She stated that she had an episode of nausea yesterday evening, but denied vomiting or severe ABD pain. Patient also denied additional symptoms such as fevers, chills , chest pain or SOB. - Objective Vital Signs & Weight: Vital Signs (12 hours) Temp Pulse Resp BP BP Pulse Ox 12/20/19 04:00 97.4 F L 71 18 94/61 97 12/19/19 23:32 98.2 F 69 18 106/65 92 L 12/19/19 20:00 98 12/19/19 19:47 98.6 F 71 18 93/63 98 Weight Admit Weight 87.997 kg Weight 83.631 kg I&O: 12/18/19 12/19/19 12/20/19 06:59 06:59 06:59 Intake Total 3530 3400 Output Total 0 Balance 3530 3400 Result Diagrams: 12/17/19 06:21 12/17/19 06:21 Phys Exam - Physical Examination Constitutional: NAD HEENT: PERRLA, moist MMs, sclera anicteric, oral pharynx no lesions Neck: no nodes, supple, full ROM Respiratory: no wheezing, no rales, no rhonchi, clear to auscultation bilateral Cardiovascular: RRR, no significant murmur, no rub Gastrointestinal: soft, non-tender, no distention, positive bowel sounds Musculoskeletal: no edema, pulses present Neurological: non-focal, moves all 4 limbs Lymphatic: no nodes Psychiatric: normal affect Skin: no rash Dx/Plan (1) Hx of pancreatitis Code(s): Z87.19 - PERSONAL HISTORY OF OTHER DISEASES OF THE DIGESTIVE SYSTEM Status: Acute (2) Abdominal pain Code(s): R10.9 - UNSPECIFIED ABDOMINAL PAIN Status: Acute (3) Atypical chest pain Code(s): R07.89 - OTHER CHEST PAIN Status: Acute (4) History of hypertension Code(s): Z86.79 - PERSONAL HISTORY OF OTHER DISEASES OF THE CIRCULATORY SYSTEM Status: Acute (5) History of cerebrovascular accident (CVA) with residual deficit Code(s): I69.30 - UNSPECIFIED SEQUELAE OF CEREBRAL INFARCTION Status: Chronic (6) Intractable nausea and vomiting Code(s): R11.2 - NAUSEA WITH VOMITING, UNSPECIFIED Status: Chronic - Plan Plan: Patient is a 49 y/o female who presented to the ED on 12/03 for evaluation atypical chest pain and intractable N/V. 1. Intractable N/V s/p EGD with dilation of Gastrojejunal Anastomosis to 20 mm - Will continue Metoclopramide, Promethazine, Protonics, Carafate - Diet: TPN (12/17) - will slowly attempt to advance as tolerated from Bariatric Full Liquid - GI: Re-consulted, recs appreciated - will d/c Zofran and consider additional dose of stimulant laxatives today - Dietary: Consulted, following 2. Constipation - Likely contributing factor to #1 - Miralax, Senokot, Linzess, Mg Citrate - 1 BM recorded on 12/18, patient endorsed multiple BMs overnight 3. Hemorrhoids - Patient endorses a long Hx of hemorrhoids with occasional bleeding with passing stool - Characterizes the bleeding as "a few drops mixed with stool" - denies gross bleeding or melanotic stools - Patient states that hemorrhoids are non-painful and do not impede her ability to pass stool - Continue to monitor Dispo: Patient is currently stable and admitted to the Medical Floor following a prolonged evaluation for Intractable Nausea and Vomiting. GI re-consulted, recs appreciated. Will continue to encourage a slow progression of PO intake and treat Nausea, Vomiting, and Constipation as per above. Expected LOS > 48H.
[2019-12-20 08:27] LABS: Anion Gap 13 mmol/L (10-20); BUN (Urea Nitrogen) 10 mg/dL (7.0-18.7); Calc. Creatinine Clearance 121 mL/min (70-130); Calcium 8.8 mg/dL (7.8-10.44); Carbon Dioxide 19 mmol/L (22-29); Chloride 106 mmol/L (98-107); Estimated GFR-MDRD Greater than 90; Glucose 89 mg/dL (70-105); Potassium 4.8 mmol/L (3.5-5.1); Sodium 133 mmol/L (136-145)
[2019-12-20] MEDS: Pantoprazole 40 MG VIAL IVP SCH (08:33)
[2019-12-20] MEDS: Enoxaparin Sodium 40 MG/0.4 ML SYRINGE SC SCH (08:34)
[2019-12-20] MEDS: Sucralfate 1 GM/10 ML UDCUP PO SCH ×3 (08:34→17:24)
[2019-12-20] MEDS: Metoclopramide 10 MG/10 ML UDCUP PO SCH ×4 (08:34→21:01)
[2019-12-20] MEDS: busPIRone HCl 10 MG TAB PO SCH ×2 (08:35→21:01)
[2019-12-20] MEDS: Senokot S 8.6-50 MG TAB PO SCH ×2 (08:35→21:01)
[2019-12-20] MEDS: Lisinopril 2.5 MG TAB PO SCH (08:36)
[2019-12-20] MEDS: Polyethylene Glycol 3350 17 GM Packet PO SCH ×2 (08:36→22:47)
[2019-12-20] MEDS: Aspirin Chewable 81 MG TAB PO SCH (08:40)
--- NOTE | 2019-12-20 15:05 | PRG ---
DATE OF SERVICE: 12/20/2019 SUBJECTIVE: Ms. Andino has not been eating much again today. She has been on full liquids. In the last couple days, she feels like her food sits in her lower substernal region. She has had some discomfort in that area as well. OBJECTIVE: VITAL SIGNS: Temperature is 97.7, pulse 63, blood pressure 96/67. GENERAL: She is in no acute distress. Alert and oriented x3. EYES: Have no scleral icterus. LUNGS: Clear to auscultation bilaterally. HEART: Regular rate and rhythm without murmur. ABDOMEN: Soft, nontender, and nondistended. Bowel sounds are present. EXTREMITIES: No lower extremity edema. IMPRESSION: 1. Anorexia and chronic nausea. 2. Question of dysphagia. She had endoscopy earlier this hospital stay without significant abnormality. She has had a Chiquita-en-Y gastric bypass and the anastomosis was patent and allowed inflation of the balloon to 20 mm without significant change. 3. Constipation. She did take the magnesium citrate and had some bowel movements yesterday. She is nondistended and feels a little less tight after that, but really she appears very comfortable throughout this whole process. RECOMMENDATIONS: 1. Barium esophagogram. 2. She is on pantoprazole and promethazine as needed. She has been on metoclopramide. Scheduled MiraLAX. Job ID: [id number]
[2019-12-20 17:01] LABS: Hemoglobin 12.4 g/dL (12.0-16.0); Mean Corpuscular HGB CONC 32.7 g/dL (32.0-36.0); Mean Corpuscular Hemoglobin 30.6 pg (27.0-31.0); Mean Corpuscular Volume 93.4 fL (78.0-98.0); Mean Platelet Volume 9.1 fL (7.4-10.4); Platelet Count 227 thou/uL (130-400); RBC Distribution Width 12.2 % (11.5-14.5); Red Blood Cell (RBC) Count 4.05 mill/uL (4.20-5.40); White Blood Cell (WBC) Count 6.9 thou/uL (4.8-10.8)
--- NOTE | 2019-12-20 17:32 | PRG ---
DATE OF SERVICE: Please see the note from Dr. Ben Ramirez, for which I agree. The patient was seen, evaluated, and discussed with the residents. Unfortunately, still having a lot of intermittent vomiting, nausea, and epigastric discomfort despite multiple medicines for this. Maybe is improving a little bit, had a few more bowel movements, which is a good sign. Still on TPN. The question is can we potentially try something else for these issues. Potentially baclofen for intractable reflux type issues esophageal spasm and possibly has something like Marinol or Remeron for chronic nausea by GI. Job ID: [id number]
[2019-12-20] MEDS: Atorvastatin Calcium 40 MG TAB PO SCH (21:01)
[2019-12-21] MEDS: Aspirin Chewable 81 MG TAB PO SCH (08:33)
[2019-12-21] MEDS: Promethazine 25 MG TAB PO PRN ×2 (08:34→21:09)
[2019-12-21] MEDS: Metoclopramide 10 MG/10 ML UDCUP PO SCH ×4 (08:34→21:04)
[2019-12-21] MEDS: Sucralfate 1 GM/10 ML UDCUP PO SCH ×3 (08:36→17:35)
[2019-12-21] MEDS: busPIRone HCl 10 MG TAB PO SCH ×2 (08:36→21:03)
[2019-12-21] MEDS: Enoxaparin Sodium 40 MG/0.4 ML SYRINGE SC SCH (08:36)
[2019-12-21] MEDS: Pantoprazole 40 MG VIAL IVP SCH (08:37)
[2019-12-21] MEDS: Polyethylene Glycol 3350 17 GM Packet PO SCH ×2 (08:37→21:04)
[2019-12-21] MEDS: Lisinopril 2.5 MG TAB PO SCH (08:37)
[2019-12-21] MEDS: Senokot S 8.6-50 MG TAB PO SCH ×2 (08:38→21:04)
--- NOTE | 2019-12-21 08:57 | PDOC.FM ---
- Subjective Subjective: Pt states she is feeling "horrible" today due to severe naursea. She denies vomiting since she has not eaten anything solid for two days. She states the last time she vomited was 2 days ago when she last ate. She is on a bariatric liquid diet and states she does okay as long as she takes small sips. She states she does not feel hungry; she feels thirsty but has to drink such small amounts at a time that she is never able to satiate that thirst. She states she is urinating at a normal frequency but the amounts are small and dark. Her last BM was yesterday. She continues to endorse substernal pain that is intermittent and feels like the acid reflux she is used to having. - Objective Vital Signs & Weight: Vital Signs (12 hours) Temp Pulse Resp BP BP Pulse Ox 12/21/19 08:37 60 12/21/19 07:39 98.1 F 60 16 101/69 98 12/21/19 05:02 97.7 F 63 17 92/64 97 12/21/19 01:08 98.1 F 66 17 100/69 98 12/20/19 21:02 97.8 F 73 17 89/62 L 98 Weight Admit Weight 87.997 kg Weight 84.397 kg I&O: 12/20/19 12/21/19 12/22/19 06:59 06:59 06:59 Intake Total 700 856 Balance 700 856 Result Diagrams: 12/20/19 16:49 12/20/19 08:06 Phys Exam - Physical Examination Respiratory: no wheezing, no rales, clear to auscultation bilateral Cardiovascular: RRR, no significant murmur Gastrointestinal: soft, non-tender Minimal bowel sounds Psychiatric: normal affect, A&O x 3 Dx/Plan - Plan Plan: Dx/Plan (1) Hx of pancreatitis Code(s): Z87.19 - PERSONAL HISTORY OF OTHER DISEASES OF THE DIGESTIVE SYSTEM Status: Acute (2) Abdominal pain Code(s): R10.9 - UNSPECIFIED ABDOMINAL PAIN Status: Acute (3) Atypical chest pain Code(s): R07.89 - OTHER CHEST PAIN Status: Acute (4) History of hypertension Code(s): Z86.79 - PERSONAL HISTORY OF OTHER DISEASES OF THE CIRCULATORY SYSTEM Status: Acute (5) History of cerebrovascular accident (CVA) with residual deficit Code(s): I69.30 - UNSPECIFIED SEQUELAE OF CEREBRAL INFARCTION Status: Chronic (6) Intractable nausea and vomiting Code(s): R11.2 - NAUSEA WITH VOMITING, UNSPECIFIED Status: Chronic - Plan Plan: Patient is a 49 y/o female who presented to the ED on 12/03 for evaluation of atypical chest pain and intractable N/V. 1. Intractable N/V s/p EGD with dilation of Gastrojejunal Anastomosis to 20 mm - Will continue Metoclopramide, Promethazine, Protonics, Carafate - Diet: clear liquids (12/20) - will slowly attempt to advance as tolerated - GI: Re-consulted and recommend barium esophagogram; hospital policy requires pre-procedure COVID screening which has been ordered (12/20) - Dietary: Consulted, following 2. Constipation - Likely contributing factor to #1 - Miralax, Senokot, Linzess, Mg Citrate - Most recent BM was on 12/19 3. Hemorrhoids - Patient endorses a long Hx of hemorrhoids with occasional bleeding with passing stool - Characterizes the bleeding as "a few drops mixed with stool" - denies gross bleeding or melanotic stools - Patient states that hemorrhoids are non-painful and do not impede her ability to pass stool - Continue to monitor Dispo: Patient is currently stable and admitted to the Medical Floor following a prolonged evaluation for Intractable Nausea and Vomiting. GI re-consulted, recs appreciated. Will continue to encourage a slow progression of PO intake and treat Nausea, Vomiting, and Constipation as stated above. Expected LOS > 48H. Addendum - Attending - Attending Attestation Date/Time: 12/21/192216 I personally evaluated the patient and discussed the management with Dr. Olesya Peoples I agree with the History, Examination, Assessment and Plan documented above with any addition or exceptions noted below - Patient nauseated today. Afebrile VSS. A/P: 1) Persistent N/V- plan for barium esophogram. Continue antiemetics. 2 ) Constipation- BM with mag citrate. Continue bowel regimen.
--- NOTE | 2019-12-21 09:40 | PRG ---
DATE OF SERVICE: 12/20/2019 TRANSITION OF CARE NOTE: The patient is a 49-year-old female with a history of a Chiquita-en-Y surgery, history of cholecystectomy, GERD, hypertension , hyperlipidemia, history of CVA, and major depressive disorder, who presented to the ED on 12/04/2019. The patient's chief complaint at that time was atypical chest pain and nausea and vomiting. The patient states that the nausea started 4 to 5 days prior to presentation and she had been vomiting continuously since stating that she was unable to keep food down. However, she was able to tolerate some p.o. fluid intake. The day prior to presentation, the patient states that she was sitting around her house and felt her heart racing and thought it was chest pain. She characterizes the pain as a pressure. It was substernal in nature. She also reported dizziness and blurry vision. She stated that the pain came and went without modifying factors and lasted hours on end. The patient stated that she initially had dizziness that was unchanged with position, but denied numbness or tingling. She denied radiation of the pain to her arms and neck. She states that the pain felt somewhat like an episode of pancreatitis that she had had in the past, but was unable to provide additional information. She denied fevers and chills at that time as well as diarrhea or constipation. She also denied urinary symptoms , but reported chronic weakness on the right arm and drooping of the face from a remote CVA. EKG performed at that time revealed sinus bradycardia with a ventricular rate of 53, otherwise normal exam. Chest x-ray performed at that time revealed no acute cardiopulmonary processes. Laboratory analysis at that time revealed a troponin level that was negative x3. However, lipase was elevated at 127. CBC and CMP performed at that time were unremarkable. The patient was subsequently worked up for atypical chest pain and was kept n.p.o. for analysis of TSH, magnesium, phosphorus, and fasting lipid panel and possible stress test or procedure the following day. Additionally, it was thought that the patient may be experiencing a recurrent episode of acute pancreatitis and as such was started on lactated Ringer's at 125 mL per hour and administered Bentyl, Zofran, and morphine for pain as needed. All other chronic medical conditions were managed conservatively and the patient was subsequently transferred to the Telemetry Floor. TSH was measured at 1.5. Magnesium is 1.9, phosphorus 3.2. Fasting lipid panel showed triglycerides of 41, cholesterol of 177, LDL of 91, HDL of 78, and a calculated ASCVD risk of 0.5%. As the patient had recently had a stress test performed in 02/2019, that showed a reversible defect that was managed medically , the decision was made not to repeat the patient's stress test and she was subsequently transferred to the medical floor with ongoing fluid resuscitation and instructions to advance diet as tolerated. The patient at that time continued to experience severe abdominal pain, nausea and vomiting that was relieved with morphine p.r.n. An abdomen and pelvis CT scan was performed, which showed no acute processes and the patient was subsequently evaluated by GI for possible acute pancreatitis. At that time, GI recommended to continue aggressive antiemetic support as well as IV fluid resuscitation and minimize narcotics if possible as it may be contributing to gastroparesis. An EGD was performed on 12/11/2019, which demonstrated findings consistent with history of Chiquita-en-Y surgery with mildly reduced gastrojejunal anastomosis measured approximately 18 mm that was subsequently dilated to 20 mm. The patient tolerated the procedure well and was subsequently transferred back to the medical floor, where she was started on a clear liquid diet and aforementioned pain control, fluid resuscitation, and antiemetic medications. Over the span of the next several days, the patient was intermittently able to tolerate her clear liquid diet well. However, as efforts were made to advance her diet from clear liquids to soft and regular diet, the patient experienced intermittent episodes of severe nausea, vomiting, and abdominal pain that would effectively prevent the patient from tolerating p.o. intake for several meals to several days. A gastric emptying study was performed on 12/15/2019, which noted a rapid gastric emptying of radioactive tracer at the 26 minute christiana, likely due to the patient having a prior gastric surgery. The report also noted that there is an increased gastric pouch radiotracer accumulation at the 60 minute and 2 hour time christiana likely indicative of gastroenteric reflux consistent with the patient's past medical history. The patient continued to report symptoms of abdominal pain, nausea, vomiting, and intermittent dizziness and fluid resuscitation was continued. The patient also began to endorse feelings of constipation for which a robust bowel regimen of Colace, MiraLAX, Senokot, and senna was initiated, in addition to the patient's antiemetic regimen of metoclopramide, promethazine as well as sucralfate, magnesium citrate and the patient's home regimen of Linzess. An abdominal x- ray was performed on 12/16/2019, that showed again no acute findings and the patient slowly began to advance her diet over the next 48 hours to regular diet with the inclusion of additional solid foods. However, repeat episodes of severe abdominal pain, nausea and vomiting returned and GI was subsequently consulted again on 2019. Recommendations at that time were to stop the intermittent use of Zofran as it may be contributing to constipation, but to continue medication regimen as mentioned above. The patient subsequently had between two and four bowel movements over the span of the next 24 to 36 hours and did not endorse abdominal pain or constipation on morning rounds. Repeat evaluation by GI on 12/18 yielded relatively unchanged recommendations to advance clear liquid diet as tolerated and to continue with antiemetic and constipation medication regimens. At this time, the exact etiology of the patient's intractable nausea, vomiting, and intermittent abdominal pain are unknown. However, evaluation is ongoing and the patient endorses less abdominal pain and episodes of nausea and vomiting on morning rounds on 12/19 and in the several days prior. Job ID: [id number] MTDD
--- NOTE | 2019-12-21 12:19 | PRG ---
DATE OF SERVICE: 12/21/2019 SUBJECTIVE: Ms. Andino had some nausea yesterday and has not been eating much of her liquid diet. She appears perfectly comfortable currently. She is waiting on her barium esophagogram to be performed. She still has some discomfort in the lower substernal area. OBJECTIVE: VITAL SIGNS: Temperature 98.1, pulse 60, blood pressure 101. Her weight is stable at 186. IMPRESSION: 1. 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 2. Questionable dysphagia. We are awaiting a barium esophagogram today. She had endoscopy earlier this hospital stay, that was unremarkable. She is post Chiquita-en-Y gastric bypass anatomy. She does not have a significant gastrojejunostomy stricture. 3. Constipation, appears to have been better over the last couple of days after having taken magnesium citrate. RECOMMENDATIONS: 1. Pantoprazole, promethazine, and metoclopramide. 2. Scheduled MiraLAX. 3. Barium esophagogram today. Job ID: [id number]
[2019-12-21] MEDS: Atorvastatin Calcium 40 MG TAB PO SCH (21:04)
[2019-12-22] MEDS: Promethazine 25 MG TAB PO PRN ×2 (06:01→17:54)
--- NOTE | 2019-12-22 06:01 | PDOC.FM ---
- Subjective Subjective: Pt states she is feeling "horrible" and nauseous. She states the nausea is the same as yesterday and has not improved at all. She partially attributes this to receiving her anti-nausea medications later "than she is supposed to" stating she received the anti-nausea medication an hour after dinner, although she admits that even when she was receiving them prior to eating they did not help much. She states she has still only been able to clear liquids down - she states she attempted to eat ice cream and jello yesterday but vomited them both up. She states she does not have much of an appetite and that she can only drink small sips at a time because as soon as she takes some in she feels full. She states that she tries to eat solids they feel like they get stuck in her esophagus but denies dysphagia when drinking liquids. She states she is willing to try swallowing the barium but that she doubts she will be able to keep it down because she had to swallow it for another procedure in the past and was hardly able to keep it down then, and she "wasn't even having stomach issues back then". She had a BM this morning that she described as a few loose bridget. She denied seeing blood, denied black stool, endorsed hemorrhoid pain which she says is constant regardless of how soft the stool is - she allegedly had a colonoscopy scheduled for her hemorrhoids but it got canceled because of COVID. She states her sister was seen for "stomach issues" in the [facility] in where she ended up requiring an ex-lap for diagnosis. She is going to ask her sister what they found in case it could be something genetic. She states she is still urinating but that it is small amounts and dark. She has been experiencing some dizziness and blurry vision; she is not sure if the two are related but the dizziness has occurred both while walking and while sitting down. She states when she told the nurse she was dizzy she was told it was likely due to her BP being low at that time. She appears to have had these symptoms before and Meclizine resolved the issue. She is ambulating by herself but states she would appreciate having some help from PT because her R LE is weak s/p CVA so she sometimes feels unsteady and worries she might fall. She has felt dizzy walking lately, too, but has not fallen or had a near-fall. She endorses pain in her L forearm which she attributes to her IV. Yesterday () she said the IV was in the R forearm and it was causing numbness of her entire arm so she asked for the line to be replaced. She is asking for it to be replaced again due to this pain. She denies HOLLY, subjective fever, chills, dyspnea/cough, diarrhea, numbness/ tingling. - Objective Vital Signs & Weight: Vital Signs (12 hours) Temp Pulse Resp BP Pulse Ox 12/21/19 20:00 97.6 F 78 20 109/70 96 Weight Admit Weight 87.997 kg Weight 84.397 kg I&O: 12/20/19 12/21/19 12/22/19 06:59 06:59 06:59 Intake Total 700 856 Balance 700 856 Result Diagrams: 12/20/19 16:49 12/20/19 08:06 Phys Exam - Physical Examination Constitutional: NAD Neck: supple, full ROM Respiratory: no wheezing, no rales, no rhonchi, clear to auscultation bilateral Cardiovascular: RRR, no significant murmur Gastrointestinal: soft, positive bowel sounds (Minimal) Mild RUQ tenderness which is unchanged from 12/20 Musculoskeletal: no edema Neurological: normal sensation, moves all 4 limbs Psychiatric: normal affect, A&O x 3 Skin: no rash Dx/Plan - Plan Plan: Dx/Plan - Plan Plan: Dx/Plan (1) Hx of pancreatitis Code(s): Z87.19 - PERSONAL HISTORY OF OTHER DISEASES OF THE DIGESTIVE SYSTEM Status: Acute (2) Abdominal pain Code(s): R10.9 - UNSPECIFIED ABDOMINAL PAIN Status: Acute (3) Atypical chest pain Code(s): R07.89 - OTHER CHEST PAIN Status: Acute (4) History of hypertension Code(s): Z86.79 - PERSONAL HISTORY OF OTHER DISEASES OF THE CIRCULATORY SYSTEM Status: Acute (5) History of cerebrovascular accident (CVA) with residual deficit Code(s): I69.30 - UNSPECIFIED SEQUELAE OF CEREBRAL INFARCTION Status: Chronic (6) Intractable nausea and vomiting Code(s): R11.2 - NAUSEA WITH VOMITING, UNSPECIFIED Status: Chronic - Plan Plan: Patient is a 49 y/o female who presented to the ED on 12/03 for evaluation of atypical chest pain and intractable N/V. 1. Intractable N/V s/p EGD with dilation of Gastrojejunal Anastomosis to 20 mm - Will continue Metoclopramide, Promethazine, Protonics, Carafate - Diet: bariatric full liquid (12/20) - will slowly attempt to advance as tolerated - GI: Re-consulted and recommend barium esophagogram; hospital policy requires pre-procedure COVID screening which has been ordered and received (12/20) but not yet resulted - Dietary: Consulted, following 2. Constipation - Likely contributing factor to #1 - Miralax, Senokot, Linzess, Mg Citrate - Most recent BM was on 12/20 3. Hemorrhoids - Patient endorses a long Hx of hemorrhoids with occasional bleeding with passing stool - Characterizes the bleeding as "a few drops mixed with stool" - denies gross bleeding or melanotic stools - Patient states that hemorrhoids are painful but do not impede her ability to pass stool - Continue to monitor Dispo: Patient is currently stable and admitted to the Medical Floor following a prolonged evaluation for Intractable Nausea and Vomiting. GI re-consulted, esophagogram pending neg preprocedure COVID test. Will continue to encourage a slow progression of PO intake and treat Nausea, Vomiting, and Constipation as stated above. Expected LOS > 48H. Addendum - Attending - Attending Attestation Date/Time: 12/22/191824 I personally evaluated the patient and discussed the management with Dr. Olesya Peoples I agree with the History, Examination, Assessment and Plan documented above with any addition or exceptions noted below - Patient still c/o nausea. Afebrile VSS. A/P: 1) Persistent N/V- COVID swab neative; will get barium esophagogram ordered. 2) Constipation- improved; continue bowel regimen.
[2019-12-22] MEDS: Enoxaparin Sodium 40 MG/0.4 ML SYRINGE SC SCH (08:49)
[2019-12-22] MEDS: Aspirin Chewable 81 MG TAB PO SCH (08:50)
[2019-12-22] MEDS: Sucralfate 1 GM/10 ML UDCUP PO SCH ×3 (08:50→17:49)
[2019-12-22] MEDS: Lisinopril 2.5 MG TAB PO SCH (08:50)
[2019-12-22] MEDS: busPIRone HCl 10 MG TAB PO SCH ×2 (08:50→20:20)
[2019-12-22] MEDS: Metoclopramide 10 MG/10 ML UDCUP PO SCH ×4 (08:56→20:20)
[2019-12-22] MEDS: Senokot S 8.6-50 MG TAB PO SCH ×2 (11:31→20:20)
[2019-12-22] MEDS: Polyethylene Glycol 3350 17 GM Packet PO SCH ×2 (11:31→20:20)
[2019-12-22] MEDS: Pantoprazole 40 MG VIAL IVP SCH (11:42)
[2019-12-22 12:23] LABS: SARS-CoV-2 MS2 Positive; SARS-CoV-2 N Gene Negative; SARS-CoV-2 S Gene Negative; SARS-CoV-2 orf1ab Negative
--- NOTE | 2019-12-22 13:22 | PDOC.BPN ---
- Brief Progress Note This is a transition of care note 49-year-old female presents to the emergency department complaining of nausea vomiting and abdominal pain. She noted a history of chronic pancreatitis however reviewed patients chart shows no acute onset to you corroborate this history. Patient was admitted for intractable nausea and vomiting with a borderline lipase in the 100s. She was started on PRN anti-emetics as well as IV opioids for pain control. Over the next several days patient continue to have nausea and vomiting immediately after PO intake. We began to question whether this may be due to gastroparesis secondary to patients history of gastric surgery. We started patient on Reglan who noted some improvement. Over the next few days she was able to tolerate slightly more oral intake. She did have not had a bowel movement in several days so she was administered MiraLAX and lactulose. Patient reported that the nurse had requested that she finished her to lactulose quickly at the end of her shift so she consumed it fast and immediately started to have nausea vomiting and worse than abdominal pain. She knows that this normally occurs after she and just food at a fast rate. GGiovanyI. was consulted and performed an EGD that was performed without any significant findings. A gastric emptying study was performed that was inconclusive however showed entero gastric reflux. G.I. was re-consult in for further recommendations after the patient again was tolerating essentially no PO intake with multiple anti-emetic PRNs. All opioids and anti-kinetic drugs were DC due to patients constipation. She also acquired her Linzess from home to assist in moving her bowels which she states is very helpful in her treatment of chronic constipation.
--- NOTE | 2019-12-22 15:11 | PRG ---
DATE OF SERVICE: 12/22/2019 SUBJECTIVE: Ms. Andino says she feels about the same. Nausea persists. She had one episode of emesis earlier today and otherwise does not feel she can tolerate even her liquid diet. She is not having any ongoing abdominal pain. She reiterates to me that she feels as if food and even liquids will hang up in the lower chest, not really in the abdomen. COVID PCR came back negative. OBJECTIVE: VITAL SIGNS: Temperature 97.9, pulse 73, blood pressure 96/64, 98% oxygen saturation on room air. GENERAL: No acute distress. HEART: Regular rate and rhythm. LUNGS: Clear to auscultation bilaterally. ABDOMEN: Bowel sounds present. Soft, nontender to palpation. EXTREMITIES: No peripheral edema. LABORATORY STUDIES: COVID PCR is negative. Sodium 133, potassium 4.8, BUN 10, creatinine 0.73. WBC 6.9, hemoglobin 12.4, platelets 227. ASSESSMENT AND PLAN: 1. Dysphagia. 2. Chronic nausea and vomiting. 3. History of Chiquita-en-Y gastric bypass. I reviewed her recent EGD report and gastric emptying study. These were essentially unrevealing. She does not have any significant stenosis of the gastrojejunal anastomosis and there was no esophageal abnormality visualized. Motility disorder does remain on the differential. I agree with Dr. Lnyn's plan for barium esophagram. COVID PCR is negative, so we should be able to go forward with this. Otherwise, continue current symptomatic treatment. Job ID: [id number]
[2019-12-22] MEDS: D5W-AA 4.25% with LYTES 1,000 ML IV SCH (15:38)
[2019-12-22] MEDS ORDERED: traMADol HCl 50 MG TAB PO SCH (18:06)
[2019-12-22] MEDS: Atorvastatin Calcium 40 MG TAB PO SCH (20:20)
[2019-12-23] MEDS: Promethazine 25 MG TAB PO PRN ×3 (01:12→18:11)
--- NOTE | 2019-12-23 06:04 | PDOC.FM ---
- Subjective Subjective: Pt states she is doing well today but is still experiencing some nausea, although it is less than yesterday. She did not attempt to consume anything other than clear liquids yesterday and has not vomited since 12/20 when she attempted to consume ice cream and jello. Her last BM was 12/20 and denies blood in the stool/melena/diarrhea. She endorses CP when drinking, but denies dysphagia. She states the CP is the same epigastric pain as before. Her COVID test resulted neg on 12/21 and she is scheduled for a barium esophagogram today. She denied dizziness but endorsed blurry vision that lasts about 10 minutes. The nurse messaged me later in the morning to say Ms. Andino was feeling dizzy and that her SBP was in the upper 80s. Her nurse states her BP also dropped like that last night (12/21) at which point she held her Lisinopril. The pt has failed to have consistently elevated BPs during her stay so Lisinopril is being discontinued. On 12/21, pt mentioned her sister had been treated at [facility] in for "stomach issues" that did not include intractable N/V but that required an ex- lap. She wanted to ask her sister what they found to see if it could be genetic. She was able to speak to her sister last night who said they never found anything although her stomach issues resolved after the ex-lap. She also mentioned today that her maternal aunt has stomach cancer for which she is being treated in [place]. Her aunt is in her 70s, was diagnosed with the cancer in her 60s, and that the cancer was due to "bad genes". She does not know what kind of stomach cancer and denies any other hx of gastric issues in her family. She denies vomiting, dysuria/hematuria, numbness/tingling, dyspnea/cough. - Objective Vital Signs & Weight: Vital Signs (12 hours) Temp Pulse Resp BP Pulse Ox 12/23/19 00:00 97.9 F 78 16 96/60 98 12/22/19 20:00 97 12/22/19 19:21 97.3 F L 84 16 94/63 97 Weight Admit Weight 87.997 kg Weight 83.461 kg I&O: 12/21/19 12/22/19 12/23/19 06:59 06:59 06:59 Intake Total 856 120 330 Balance 856 120 330 Result Diagrams: 12/20/19 16:49 12/20/19 08:06 Phys Exam - Physical Examination Constitutional: NAD She was asleep when I visited and having trouble staying awake. Neck: supple Respiratory: no wheezing, no rales, no rhonchi, clear to auscultation bilateral Cardiovascular: RRR, no significant murmur Gastrointestinal: soft, non-tender (She has complained of RUG pain daily and winced on palpation the past few days but did not wince today on palpation. Possibly due to distraction as I was asking her questions while palpating.), no distention, positive bowel sounds (Bowel sounds minimal) Musculoskeletal: no edema Neurological: normal sensation, moves all 4 limbs Psychiatric: normal affect, A&O x 3 Skin: no rash Dx/Plan (1) Abdominal pain Code(s): R10.9 - UNSPECIFIED ABDOMINAL PAIN Status: Acute Qualifiers: Abdominal location: right upper quadrant Qualified Code(s): R10.11 - Right upper quadrant pain (2) Esophageal spasm Status: Acute (3) GERD (gastroesophageal reflux disease) Code(s): K21.9 - GASTRO-ESOPHAGEAL REFLUX DISEASE WITHOUT ESOPHAGITIS Status: Chronic (4) Non-cardiac chest pain Code(s): R07.89 - OTHER CHEST PAIN Status: Acute (5) History of cerebrovascular accident (CVA) with residual deficit Code(s): I69.30 - UNSPECIFIED SEQUELAE OF CEREBRAL INFARCTION Status: Chronic (6) Intractable nausea and vomiting Code(s): R11.2 - NAUSEA WITH VOMITING, UNSPECIFIED Status: Chronic (7) Obesity (BMI 30-39.9) Code(s): E66.9 - OBESITY, UNSPECIFIED Status: Chronic (8) Hemorrhoids Code(s): K64.9 - UNSPECIFIED HEMORRHOIDS Status: Chronic Qualifiers: Hemorrhoid type: unspecified Qualified Code(s): K64.9 - Unspecified hemorrhoids (9) Constipation Code(s): K59.00 - CONSTIPATION, UNSPECIFIED Status: Chronic Qualifiers: Constipation type: chronic idiopathic constipation Qualified Code(s): K59.04 - Chronic idiopathic constipation - Plan Plan: - Plan Patient is a 49 y/o female who presented to the ED on 12/03 for evaluation of atypical chest pain and intractable N/V. Intractable N/V s/p EGD with dilation of Gastrojejunal Anastomosis to 20 mm - Will continue Metoclopramide, Promethazine, Protonics, Carafate - Diet: bariatric full liquid (12/22) - will slowly attempt to advance as tolerated - GI: Re-consulted and recommend barium esophagogram; hospital policy requires pre-procedure COVID screening which resulted neg (12/21) - Esophagogram scheduled for 12/22 - Dietary: Consulted, following Constipation - Likely contributing factor to #1 - Miralax, Senokot, Linzess, Mg Citrate - Most recent BM was on 12/20 Hemorrhoids - Patient endorses a long Hx of hemorrhoids with occasional bleeding with passing stool - Characterizes the bleeding as "a few drops mixed with stool" - denies gross bleeding or melanotic stools - Patient states that hemorrhoids are painful but do not impede her ability to pass stool - She was allegedly scheduled to have a colonoscopy which was canceled due to COVID - Continue to monitor Dizziness - Pt has complained of dizziness that is often correlated with SBPs in the upper 80s. - Will discontinue Lisinopril and continue to monitor Dispo: Patient is currently stable and admitted to the Medical Floor following a prolonged evaluation for Intractable Nausea and Vomiting. GI re-consulted, esophagogram ordered for 12/22. Will continue to encourage a slow progression of PO intake and treat Nausea, Vomiting, and Constipation as stated above. Expected LOS > 48H. Addendum - Attending - Attending Attestation Date/Time: 12/23/19 [id number] I personally evaluated the patient and discussed the management with Dr. Olesya Peoples I agree with the History, Examination, Assessment and Plan documented above with any addition or exceptions noted below - Patient feeling a little better today; tolerated esophogogram. Still having nausea. Afebrile VSS. A/P: 1) Persistent N/V - await esophogogram results; await further recommendations from GI. Continue current meds.
[2019-12-23] MEDS: busPIRone HCl 10 MG TAB PO SCH ×2 (08:51→20:53)
[2019-12-23] MEDS: Sucralfate 1 GM/10 ML UDCUP PO SCH ×3 (08:51→18:03)
[2019-12-23] MEDS: Aspirin Chewable 81 MG TAB PO SCH (08:51)
[2019-12-23] MEDS: Metoclopramide 10 MG/10 ML UDCUP PO SCH ×4 (08:51→20:53)
[2019-12-23] MEDS: Pantoprazole 40 MG VIAL IVP SCH (08:51)
[2019-12-23] MEDS: Enoxaparin Sodium 40 MG/0.4 ML SYRINGE SC SCH (08:51)
[2019-12-23] MEDS: Lisinopril 2.5 MG TAB PO SCH (08:52)
[2019-12-23] MEDS: Senokot S 8.6-50 MG TAB PO SCH ×2 (08:52→20:53)
[2019-12-23] MEDS: Polyethylene Glycol 3350 17 GM Packet PO SCH ×2 (08:52→20:57)
[2019-12-23] MEDS ORDERED: Lactated Ringer's 1,000 ML IV SCH (10:30)
--- NOTE | 2019-12-23 10:53 | RAD ---
Upper GI single column HISTORY: Dysphagia. Vomiting. History of gastric bypass. FINDINGS: Contrast evaluation shows normal anatomic appearance of the esophagus. Truncated stomach wi th intermediate spill to the proximal jejunum, consistent with gastric bypass bariatric surgery. No evidence of obstruction. A 12 mm barium tablet traversed the esophagus without holdup. With patient supine, there is moderate amount of gastroesophageal reflux with tertiary contractions o f the esophagus apparent. IMPRESSION : Prior gastric bypass without evidence of obstruction or other complication. Gastroesophageal reflux with esophageal spasm.
--- NOTE | 2019-12-23 11:50 | PDOC.BPN ---
- Brief Progress Note Continuity Provider Progress Note for 12/21 Ms. Andino is a 49 yo F with hx of chronic pancreatitis, GERD and gastric bypass who was admitted on 12/03 for abdominal pain with intractable nausea and vomiting. She is well known to me in clinic and had been experiencing these problems prior in which she had a GI evaluation pending. Thus here, workup has been negative for etiology with mildly elevated lipase. EGD showed intact gastrojejunal anastomosis with some mild narrowing which was mechanically dilated to 20mm. Patient did not improve after this procedure. It was thought sxs attributed to gastroparesis and initially showed improvement with metoclopramide but then worsened. GI was reconsulted and GET obtained which showed rapid gastric emptying with evidence of reflus. She is currently pending a barium swallow due to PO intake intolerance only able to tolerate some liquids. Currently she is comfortable and has had no emesis today but has also not had anything to eat. VS: T 98.1 P65 RR 18 O2 98% PE: Gen-NAD CV: RRR, no murmurs Abd: Normoactive B.S., no tenderness to palpation Extrem: Moves all 4, no edema Labs: Wbc 6.9 Hgb 12.4 Na 133 CO2 19 Cr 0.73 Lipase 135 > 127 A/P: 1. Intractable N/V 2/2 unknown etiology -s/p EGD with dilation of GJ anastomosis to 20mm, but no improvement -Unimproved on reglan trial with GET showing rapid emptying with some reflux. -Pending barium swallow to further evaluate -Liquid diet, can advance as tolerated. PRN antiemetics
[2019-12-23] MEDS: D5W-AA 4.25% with LYTES 1,000 ML IV SCH (12:26)
--- NOTE | 2019-12-23 18:03 | PRG ---
DATE OF SERVICE: 12/23/2019 SUBJECTIVE: The patient still reports having persistent nausea and vomiting to solid food. She can tolerate all liquids fine including her coffee. She can take all her medications. She had no nausea or vomiting with her barium study. She denies any abdominal pain. On further questioning, the patient has had recurrent spells of lightheadedness and intense blurry vision. No vertigo. PHYSICAL EXAMINATION: VITAL SIGNS: Temperature is 98.1 blood pressure 87/54, and pulse of 66. GENERAL: She is alert, out of bed, conversant, in no distress. HEENT: Anicteric sclerae. Oropharynx is moist and clear. NECK: Supple. CV: Shows normal S1 and S2. Regular rate and rhythm. CHEST: Shows breath sounds. ABDOMEN: Mildly protuberant, but soft and nontender. No tympany. She has active bowel sounds. No bruit. EXTREMITIES: Shows no edema. LABORATORY DATA: No labs today. Upper GI series performed with liquid barium and barium tablet, showed rapid progression through the esophagus, gastric remnant, and jejunum. No holdup of contrast. ASSESSMENT: Recurrent nausea and vomiting of undetermined etiology. Her symptoms appears of acute onset three weeks ago. Multiple imaging studies including abdominal CT, ultrasound, and gastric emptying scan and now the upper GI series have not demonstrated any abnormality. Upper endoscopy was also unremarkable. It is interesting to note that she only has nausea and vomiting with solid food and can tolerate all the liquids and medication. She denies having any new stressors or recreational drug use. RECOMMENDATIONS: With reported history of lightheadedness and blurry visions, we will obtain a brain MRI to evaluate for any central cause of her nausea and vomiting. Obtain urine toxicology. Job ID: [id number] [facility]
[2019-12-23 18:34] LABS: Amphetamine Not Detected (NotDetected); Barbiturates Screen Not Detected (NotDetected); Benzodiazepine Screen Not Detected (NotDetected); Cocaine Metabolite Screen Not Detected (NotDetected); Medtox Control Line Valid? VALID (VALID); Medtox Reader # READER 4; Methadone Not Detected (NotDetected); Methamphetamine Not Detected (NotDetected); Opiate Screen Not Detected (NotDetected); Oxycodone Screen Not Detected (NotDetected); Phencyclidine (PCP) Not Detected (NotDetected); THC/Cannabinoid Screen Not Detected (NotDetected); Tricyclic Screen Not Detected (NotDetected)
[2019-12-23] MEDS: Atorvastatin Calcium 40 MG TAB PO SCH (20:52)
[2019-12-24] MEDS: Promethazine 25 MG TAB PO PRN ×2 (05:05→17:56)
[2019-12-24] MEDS: D5W-AA 4.25% with LYTES 1,000 ML IV SCH ×2 (05:13→20:50)
--- NOTE | 2019-12-24 06:45 | PDOC.FM ---
- Subjective Subjective: Pt is doing well this morning and wants to go home. She continues to endorse nausea and has only been able to keep fluids down. She states she attempted to eat broccoli soup yesterday but vomited it up. She continues to deny an appetite. Barium esophagogram indicated moderate GERD, no obstruction, and tertiary contractions indicative of esophageal spasm. Dr. Snow recommended getting a UDS which returned neg and a head MRI since Ms. Lundberg has been complaining of episodes of dizziness and blurry vision. I asked her the Sferra depression screening questions since she has a hx of depression and depression often manifests with somatic Sx - it was negative. The order has been placed but has not been completed yet. She states she had one episode of dizziness earlier this morning. Yesterday she had an episode of dizziness associated with a SBP in the upper 70s - her Lisinopril was discontinued since she has not had any high BP readings and she was given a 1L bolus of LR which improved her blood pressure. Ms. lundberg's last BM was 12/21. She continues to complain of hemorrhoid pain, blood when wiping, a sensation of fullness in her rectum, and states she woke up with blood on her bed which has happened to her before. She states she has used lidocaine cream and preparation H and that they do not help but I am going to add Preparation H to her orders. I spoke to her PCP, Dr. Bernie Clifton, who said she wants to schedule her for a colonoscopy and maybe do an anoscopy at the same time. I also discussed with her ordering a CBC to check her Hb/Hct since labs have not been drawn for several days. I will also order a BMP to monitor her electrolytes since she has not been eating well. She states her urine amount/fz have stayed the same and continue to be a dark yellow. She denies dysuria/hematuria. Her cap refill is <2 sec, she has no skin tenting, and her tongue looks a little dry. She has continued to get out of bed and walk twice a day with assistance via the walking program offered in the hospital. - Objective Vital Signs & Weight: Vital Signs (12 hours) Temp Pulse Resp BP Pulse Ox 12/23/19 20:50 97 12/23/19 19:20 98.2 F 70 16 92/60 97 Weight Admit Weight 87.997 kg Weight 66.088 kg I&O: 12/22/19 12/23/19 12/24/19 06:59 06:59 06:59 Intake Total 597 414 6317 Balance 526 663 8700 Result Diagrams: 12/24/19 10:59 12/24/19 10:59 Phys Exam - Physical Examination Constitutional: NAD HEENT: moist MMs, oral pharynx no lesions Neck: supple, full ROM Respiratory: no wheezing, no rales, no rhonchi, clear to auscultation bilateral Cardiovascular: RRR, no significant murmur Gastrointestinal: soft, non-tender (Not tender to palpation in the RUQ like she has been previously.), positive bowel sounds Musculoskeletal: no edema Neurological: moves all 4 limbs Psychiatric: normal affect, A&O x 3 Skin: no rash, normal turgor, cap refill <2 seconds Dx/Plan (1) Abdominal pain Code(s): R10.9 - UNSPECIFIED ABDOMINAL PAIN Status: Acute Qualifiers: Abdominal location: right upper quadrant Qualified Code(s): R10.11 - Right upper quadrant pain (2) Esophageal spasm Status: Acute (3) GERD (gastroesophageal reflux disease) Code(s): K21.9 - GASTRO-ESOPHAGEAL REFLUX DISEASE WITHOUT ESOPHAGITIS Status: Chronic (4) Non-cardiac chest pain Code(s): R07.89 - OTHER CHEST PAIN Status: Acute (5) History of cerebrovascular accident (CVA) with residual deficit Code(s): I69.30 - UNSPECIFIED SEQUELAE OF CEREBRAL INFARCTION Status: Chronic (6) Intractable nausea and vomiting Code(s): R11.2 - NAUSEA WITH VOMITING, UNSPECIFIED Status: Acute (7) Obesity (BMI 30-39.9) Code(s): E66.9 - OBESITY, UNSPECIFIED Status: Chronic (8) Hemorrhoids Code(s): K64.9 - UNSPECIFIED HEMORRHOIDS Status: Chronic Qualifiers: Hemorrhoid type: unspecified Qualified Code(s): K64.9 - Unspecified hemorrhoids (9) Constipation Code(s): K59.00 - CONSTIPATION, UNSPECIFIED Status: Chronic Qualifiers: Constipation type: chronic idiopathic constipation Qualified Code(s): K59.04 - Chronic idiopathic constipation - Plan Plan: Patient is a 49 y/o female who presented to the ED on 12/03 for evaluation of atypical chest pain and intractable N/V. Intractable N/V s/p EGD with dilation of Gastrojejunal Anastomosis to 20 mm - Will continue Metoclopramide, Promethazine, Protonics, Carafate - Diet: bariatric full liquid (12/22) although she is only able to keep liquids down - will slowly attempt to advance as tolerated - GI: Re-consulted and recommend barium esophagogram; hospital policy requires pre-procedure COVID screening which resulted neg (12/21) - Results indicate no obst, moderate GERD, and "tertiary esophageal contractions" (esophageal spasms) - Dr. Snow requested UDS and head MRI given recent onset of dizziness and blurry vision - UDS neg (12/22) - Head MRI ordered (12/23) - Dietary: Consulted, following - Will order BMP to monitor electrolytes given decreased food/liquid consumption Constipation - Likely contributing factor to #1 - Miralax, Senokot, Linzess, Mg Citrate - Most recent BM was on 12/20 Hemorrhoids - Patient endorses a long Hx of hemorrhoids with occasional bleeding with passing stool - Characterizes the bleeding as "a few drops mixed with stool" - denies gross bleeding or melanotic stools - Patient states that hemorrhoids are painful but do not impede her ability to pass stool - She was allegedly scheduled to have a colonoscopy which was canceled due to COVID - She endorses a sensation of rectal fullness - will consider URBANO - She states she woke up with stacy blood on her bed - will check CBC to see if anemia is the source of her dizziness - Will order preparation H - Continue to monitor Dizziness - Pt has complained of dizziness that is often correlated with SBPs in the upper 80s. - Will discontinue Lisinopril and continue to monitor - Dr. Snow requested UDS and head MRI given recent onset of dizziness and blurry vision - UDS neg (12/22) - Head MRI ordered (12/23) - She states she woke up with stacy blood on her bed 2/2 hemorrhoids - will check CBC to see if anemia is the source of her dizziness Blurry vision - Pt has complained of recent episodes of blurry vision unrelated to her episodes of dizziness - Dr. Snow requested UDS and head MRI given recent onset of dizziness and blurry vision - UDS neg (12/22) - Head MRI ordered (12/23) Dispo: Patient is currently stable and admitted to the Medical Floor following a prolonged evaluation for Intractable Nausea and Vomiting. GI re-consulted, head MRI pending. Will continue to encourage a slow progression of PO intake and treat Nausea, Vomiting, and Constipation as stated above. Expected LOS > 48H. Addendum - Attending - Attending Attestation Date/Time: 12/24/19 6216 I personally evaluated the patient and discussed the management with Dr. Mray.- [place] I agree with the History, Examination, Assessment and Plan documented above with any addition or exceptions noted below- Patient feeling a little better; just had her nausea meds. Afebrile VSS. A/P: 1) Persistent N/V- appreciate GI assistance; MRI brain done today evaluate for central cause and it was negative ; continue clear liquids. 2) H/o htn- has been normotensive here; BP meds discontinued. Plans as per GI
[2019-12-24] MEDS: Metoclopramide 10 MG/10 ML UDCUP PO SCH ×4 (08:29→20:41)
[2019-12-24] MEDS: Aspirin Chewable 81 MG TAB PO SCH (08:30)
[2019-12-24] MEDS: busPIRone HCl 10 MG TAB PO SCH ×2 (08:30→20:40)
[2019-12-24] MEDS: Senokot S 8.6-50 MG TAB PO SCH ×2 (08:30→20:38)
[2019-12-24] MEDS: Enoxaparin Sodium 40 MG/0.4 ML SYRINGE SC SCH (08:31)
[2019-12-24] MEDS: Polyethylene Glycol 3350 17 GM Packet PO SCH ×2 (08:32→20:43)
[2019-12-24] MEDS ORDERED: Sucralfate 1 GM/10 ML UDCUP PO SCH (09:30)
[2019-12-24] MEDS: Sucralfate 1 GM/10 ML UDCUP PO SCH ×4 (09:40→16:29)
[2019-12-24] MEDS: Pantoprazole 40 MG VIAL IVP SCH ×2 (10:20→11:36)
[2019-12-24 11:10] LABS: #Basophils 0.1 thou/uL (0.0-0.2); #Eosinphils 0.3 thou/uL (0.0-0.7); #Monocytes 0.3 thou/uL (0.11-0.59); #Neutrophils 2.2 thou/uL (1.40-6.50); %Basophils 1.4 % (0.0-1.0); %Eosinophils 5.7 % (0.0-10.0); %Lymphocytes 40.7 % (21.0-51.0); %Monocytes 6.9 % (0.0-10.0); %Neutrophils 45.3 % (42.0-75.0); Hemoglobin 12.6 g/dL (12.0-16.0); Mean Corpuscular HGB CONC 32.7 g/dL (32.0-36.0); Mean Corpuscular Hemoglobin 30.4 pg (27.0-31.0); Mean Corpuscular Volume 93.2 fL (78.0-98.0); Platelet Count 229 thou/uL (130-400); RBC Distribution Width 12.1 % (11.5-14.5); Red Blood Cell (RBC) Count 4.13 mill/uL (4.20-5.40); White Blood Cell (WBC) Count 4.9 thou/uL (4.8-10.8)
--- NOTE | 2019-12-24 11:17 | MRI ---
MRI BRAIN WITH AND WITHOUT IV CONTRAST: HISTORY: Persistent nausea and vomiting and blurring vision. COMPARISON: 11/02/2013. FINDINGS: No restricted diffusion is seen. No evidence of infarct, hemorrhage, mass, midline shift, or abnorma l extraaxial fluid collection is noted. The ventricular size is normal and the basilar cisterns waters nt. No abnormal postcontrast enhancement is identified. There is mucosal disease in the paranasal s inuses. IMPRESSION: 1. No evidence of an acute intracranial process or mass. 2. Paranasal sinus disease. POS: [facility]
[2019-12-24 11:46] LABS: Anion Gap 9 mmol/L (10-20); BUN (Urea Nitrogen) 11 mg/dL (7.0-18.7); Calc. Creatinine Clearance 93 mL/min (70-130); Calcium 9.1 mg/dL (7.8-10.44); Carbon Dioxide 25 mmol/L (22-29); Chloride 104 mmol/L (98-107); Estimated GFR-MDRD Greater than 90; Glucose 83 mg/dL (70-105); Potassium 4.5 mmol/L (3.5-5.1); Sodium 133 mmol/L (136-145)
[2019-12-24] MEDS ORDERED: Magnevist 469MG/ML 20 ML VIAL ONE (16:42)
[2019-12-24] MEDS: Atorvastatin Calcium 40 MG TAB PO SCH (20:37)
[2019-12-24] MEDS ORDERED: Cosyntropin 250 MCG VIAL SLOW IVP SCH (22:00)
--- NOTE | 2019-12-24 23:29 | PRG ---
DATE OF SERVICE: 12/24/2019 SUBJECTIVE: Ms. Andino is seen in GI followup. She still has some nausea, mainly when she eats solid foods, liquids go down fine. She complains of rectal pain. Sometimes it is burning, sometimes just a pressure, sometimes it wakes her at night with severe cramp. She has had both of these symptoms since I have seen her in 2013. She has irritable bowel and functional bowel disorders. She has had multiple upper endoscopies for since 2013, the most recent being this admission, which was normal. Chiquita-en-Y gastric bypass anatomy that has been a conversion from a gastric sleeve in the past. There was no stricture that was dilated. There was no ulcer seen. Follow up gastric emptying scan, esophagram, small-bowel x-ray and CAT scans all have been normal. As far as rectal symptoms, she has had colonoscopies in 10/2013 and 03/2016 and a sigmoidoscopy was completed of the right colon in 09/2013, all for rectal bleeding and anal pain. She has been seen by surgeon in [place], had surgical procedure there, which was likely internal sphincterotomy. None of these have revealed pathology of the internal hemorrhoids nor helped her symptoms. Last time I saw her, I have placed her on Levbid, but she could not get that. She was most recently referred for a visit in October for an EGD. She states she was supposed to have a colonoscopy, but she was referred for reflux at that time and that was never scheduled in light of COVID. Here, she has also had an MRI of the brain, which was normal and a UDS this admission. PHYSICAL EXAMINATION: VITAL SIGNS: Blood pressure is 102/70 to 88/60, temperature is 98.6, respirations 16. GENERAL: She is resting comfortably in bed. She is in no distress. She is alert and oriented to person, place, and time. LABORATORY DATA: Sodium is low at 133, potassium 4.5, BUN and creatinine 9 and 11. Liver function tests have been normal at 37 AST one time, 25 recently, then 33, 30, and 19. Her lipase on admission was 127, has been rechecked. ASSESSMENT: This is a lady with functional bowel disorder, chronic constipation, on Linzess for a long period of time, in which she has done well. 1. Chronic nausea with multiple evaluations, which have been nondiagnostic, likely functional. Need to rule out adrenal insufficiency in light of low blood pressure and low sodium. She has had an extensive evaluation with motility studies, gastric emptying scans before any of her bypass and weight loss surgeries, multiple upper endoscopies, upper GI small bowel follow through, CAT scans, MRI of the brain, all of which have been normal. 2. 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 It could be reasonable to consider a hemorrhoidectomy as an outpatient. She has had surgeries before that have not helped. 3. At home, she takes Reglan, tramadol, omeprazole, Zofran, fluticasone, Nexium, they do not really help her symptoms. RECOMMENDATIONS: 1. I would get her off the Reglan. She has no diagnosis of gastroparesis nor finding suggestive of gastroparesis. 2. I would try her on some Levbid b.i.d. If it does not help her symptoms, I may consider starting on SSRI/Pristiq instead of BuSpar may help functional GI symptoms. Job ID: [id number]
[2019-12-25] MEDS: Promethazine 25 MG TAB PO PRN ×2 (04:35→12:57)
--- NOTE | 2019-12-25 07:54 | PDOC.FM ---
- Subjective Subjective: Patient states she had an episode of nausea but no vomiting around 0400 this morning. Was given Phenergan and this resolved her symptoms. Denies any abdominal pain. Did have a BM yesterday, denies any blood/bleeding with the BM. Discussed outpatient hemorrhoid treatment with Dr. Smith and patient wants to pursue this. She is drinking lemon-lovelock soda this morning, but no desire to eat solid foods. - Objective MAR Reviewed: Yes Vital Signs & Weight: Vital Signs (12 hours) BP 12/25/19 04:43 92/56 L Weight Admit Weight 87.997 kg Weight 66.587 kg I&O: 12/24/19 12/25/19 12/26/19 06:59 06:59 06:59 Intake Total 1200 2080 Balance 1200 2080 Result Diagrams: 12/24/19 10:59 12/24/19 10:59 Phys Exam - Physical Examination Constitutional: NAD HEENT: moist MMs, sclera anicteric Neck: no JVD, supple, full ROM Respiratory: no wheezing, clear to auscultation bilateral Cardiovascular: RRR, no significant murmur Gastrointestinal: soft, non-tender, no distention, positive bowel sounds Musculoskeletal: no edema, pulses present Neurological: normal sensation, moves all 4 limbs Psychiatric: normal affect, A&O x 3 Skin: no rash, normal turgor Dx/Plan (1) Abdominal pain Code(s): R10.9 - UNSPECIFIED ABDOMINAL PAIN Status: Acute Qualifiers: Abdominal location: right upper quadrant Qualified Code(s): R10.11 - Right upper quadrant pain (2) Intractable nausea and vomiting Code(s): R11.2 - NAUSEA WITH VOMITING, UNSPECIFIED Status: Acute (3) Status post bariatric surgery Status: Chronic - Plan Plan: Patient is a 49 y/o female who presented to the ED on 12/03 for evaluation of atypical chest pain and intractable N/V. Intractable N/V s/p EGD with dilation of Gastrojejunal Anastomosis to 20 mm - Will continue Metoclopramide, Promethazine, Protonics, Carafate -Dr. Smith recommends trial off Reglan, will attempt today - Diet: bariatric full liquid (12/22) although she is only able to keep liquids down - will slowly attempt to advance as tolerated - GI: Re-consulted and recommend barium esophagogram; hospital policy requires pre-procedure COVID screening which resulted neg (12/21) - Results indicate no obst, moderate GERD, and "tertiary esophageal contractions" (esophageal spasms) - Dr. Snow requested UDS and head MRI given recent onset of dizziness and blurry vision - UDS neg (12/22) - Head MRI (12/23)--normal - Dietary: Consulted, following - BMP to monitor electrolytes given decreased food/liquid consumption Irritable & Functional Bowel Disorders - barium esophagogram, small bowel XR & follow through, CT scans, previous EGD & Colonoscopy studies all essentially reveal no cause as to n/v - GI consulted, Dr. Smith--appreciate recs -will r/o adrenal insufficiency--ACTH ordered, ordered Cosyntropin -start Levbid TID -Dr. Smith recommends consider switching Buspar to Pristiq, will discuss with patient -also discussed with pharmacist Dr. Donya Zambrano, appears that Venlafaxine XR does well with patients who have hx of bariatric surgery so may go with this option as it has a generic which would be more affordable for patient -discontinue Sertraline and Buspar is switch to Venlafaxine or Pristiq Constipation - Likely contributing factor to above - Miralax, Senokot, Linzess, Mg Citrate - Most recent BM was on 12/22 Hemorrhoids - Patient endorses a long Hx of hemorrhoids with occasional bleeding with passing stool, denies gross bleeding or melanotic stools - monitor CBC to see if anemia is the source of her dizziness - Will order preparation H - Continue to monitor Dizziness - Pt has complained of dizziness that is often correlated with SBPs in the upper 80s. - Will discontinue Lisinopril and continue to monitor - Dr. Snow requested UDS and head MRI given recent onset of dizziness and blurry vision - UDS neg (12/22) - Head MRI normal (12/23) - will check CBC to see if anemia is the source of her dizziness Diet: CL VTE: Lovenox GI PPX: Protonix Code status: FULL PCP: Sarah Dispo: Stable, admitted to inpatient on Medical Floor. GI re-consulted, appreciate recs. Will continue to encourage a slow progression of PO intake and treat Nausea, Vomiting, and Constipation as stated above. Expected discharge in > 48H. Addendum - Attending - Attending Attestation Date/Time: 12/25/19 1430 I personally evaluated the patient and discussed the management with Dr. Bravo I agree with the History, Examination, Assessment and Plan documented above with any addition or exceptions noted below - Patient reports some nausea this morning resolved with antiemetic. Afebrile VSS. A/P: 1) Persistent N/V - appreciate GI input. Reglan d/c'd; started on levbid. Will change from sertraline/buspar to pristiq, 2) HTN- BP discontinued due to low to low normal BPs. continue to monitor.
[2019-12-25 08:00] VITALS: BP 115/67; TEMP 98.1
[2019-12-25] MEDS: Sucralfate 1 GM/10 ML UDCUP PO SCH ×3 (08:48→17:46)
[2019-12-25] MEDS: busPIRone HCl 10 MG TAB PO SCH (08:49)
[2019-12-25] MEDS: Pantoprazole 40 MG VIAL IVP SCH (08:50)
[2019-12-25] MEDS: Senokot S 8.6-50 MG TAB PO SCH (08:50)
[2019-12-25] MEDS: Aspirin Chewable 81 MG TAB PO SCH (08:50)
[2019-12-25] MEDS: Enoxaparin Sodium 40 MG/0.4 ML SYRINGE SC SCH (08:51)
[2019-12-25] MEDS: Polyethylene Glycol 3350 17 GM Packet PO SCH (08:51)
--- NOTE | 2019-12-25 10:40 | PRG ---
DATE OF SERVICE: 12/24/2019 ADDENDUM: Rectal examination was normal with no fissures, masses, lesions, internal hemorrhoids are palpable, nontender. Job ID: [id number]
[2019-12-25 10:47] VITALS: BMI 28.6
[2019-12-25] MEDS: D5W-AA 4.25% with LYTES 1,000 ML IV SCH (14:45)
[2019-12-25] MEDS: Acetaminophen 325 MG TAB PO PRN (17:46)
--- NOTE | 2019-12-25 18:16 | PRG ---
DATE OF SERVICE: 12/25/2019 SUBJECTIVE: Ms. Andino has had limited rectal pain. nausea, but did not vomit this morning. OBJECTIVE: VITAL SIGNS: Stable with a temperature of 98, blood pressure 115/67, respirations 18. ABDOMEN: Soft and nontender. LABORATORY DATA: Cortrosyn stimulation test today was normal. ASSESSMENT: 1. Chronic nausea dating back at least 10 years. 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 She is able to tolerate liquids fine. She is not at risk of dehydration or malnutrition. She can be discharged home from that standpoint. She has had an extensive workup with CAT scan, small bowel x-rays, upper endoscopy, barium swallow. There was no obstruction. There were no gallstones. There was no pancreatitis. There was no evidence of Chiquita limb obstruction. I think these symptoms are chronic and I addressed my recommendations in yesterday's note about possibly changing some of her antidepressant medications. 2. Proctalgia fugax. She does not have severe hemorrhoids. She has nontender hemorrhoids. Her symptoms are spasm like, related to her functional bowel disorder. She can use Levbid b.i.d. If that does not work in the outpatient setting, she may respond to a very low dose of Klonopin 0.5 mg b.i.d. She can follow up with me in the office. Her primary care physician can contact me and we can coordinate her care in terms of medications, but this is functional disorder. We will sign off for now. Please do not hesitate to contact me as needed. Job ID: [id number]
--- NOTE | 2019-12-25 22:16 | DIS ---
DATE OF ADMISSION: 12/07/2019 DATE OF DISCHARGE: 12/25/2019 RESIDENT: Dilia Mantilla MD ADMITTING ATTENDING: Arnol Wade MD DISCHARGE ATTENDING: Angela Morris MD. CONSULTS: GI. PROCEDURES: Chest x-ray, EKG on 12/04/2019. CT abdomen and pelvis on 12/09/2019. EGD with dilatation on 12/11/2019. Abdominal ultrasound on 12/13/2019. Gastric emptying nuclear scan on 12/15/2019. Abdominal x-ray on 12/16/2019. Upper GI series on 12/23/2019. Brain MRI on 12/24/2019. PRIMARY DIAGNOSES: Two irritable and functional disorders. SECONDARY DIAGNOSES: 1. Intractable nausea and vomiting, status post EGD with dilation of gastrojejunal anastomosis to 20 mm. 2. Constipation. 3. Hemorrhoids. 4. Dizziness. DISCHARGE MEDICATIONS: 1. Aspirin 81 mg by mouth daily. 2. Nexium 20 mg by mouth daily. 3. Flonase. 4. Gabapentin 100 mg by mouth daily. 5. Lisinopril 10 mg by mouth daily. 6. Omeprazole 40 mg by mouth daily. 7. Zofran 4 mg by mouth q.6 h. 8. Tramadol 50 mg by mouth q.6 h. DISCONTINUED MEDICATIONS: 1. Lipitor 40 mg by mouth at bedtime. 2. Cosyntropin 250 mcg IV push. 3. Docusate. 4. Lovenox. 5. Meclizine. 6. Nitroglycerin. 7. Pantoprazole. 8. MiraLAX. 9. Senokot. 10. Sucralfate. HISTORY OF PRESENT ILLNESS/HOSPITAL COURSE: Please see transition of care note, dated 12/22/2019. Hospital course since that date is as follows: On 12/23/2019, an upper GI series was performed, which showed no evidence of obstruction or other complication, rather GERD with esophageal spasm. Given the inconclusive findings of all of the imaging studies performed thus far. A GI specialist recommended a UDS screen and had MRI to look for other potential causes since she has started complaining of dizziness and blurry vision a few days prior. UDS was negative. Head MRI results were insignificant. GI was once again reconsulted who determined a likely cause of her symptoms with functional bowel disorder. He also determined that her hemorrhoid complaints are likely related to proctalgia fugax hemorrhoids. He recommended discontinuing her Reglan because it was determined she had no findings suggestive of gastroparesis as was initially expected and starting Levbid b.i.d. and recommended attempting an SSRI Pristiq instead of BuSpar if the Levbid does not help her symptoms. DISPOSITION: Stable. DISCHARGE INSTRUCTIONS: The patient was discharged to home with no restrictions on activity and recommended bariatric diet with recommendations to follow up with her PCP, Dr. Clifton or with GI in the outpatient setting. Job ID: [id number]
[2019-12-26] MEDS ORDERED: Venlafaxine XR 37.5 MG CAP PO SCH (09:00)
== END 2019-12-25 19:22 | disposition home or self-care (01) | DRG 392 ==
LOC: ERS 16:11 → 2NO 19:56 → INTOOBSV 19:56 → T4-B 12-05 20:15 → OBSVTOIN 12-07 10:19 → T4-A 12-21 19:57
PROVIDERS: ADMIT Emergency Medicine; ATTEND Emergency Medicine
PROC: 0D768ZZ Dilation of Stomach, Via Natural or Artificial Opening Endoscopic (ICD-10-PCS; principal; 2019-12-11)
PROC: 0D7A8ZZ Dilation of Jejunum, Via Natural or Artificial Opening Endoscopic (ICD-10-PCS; 2019-12-11)
PROC: 3E0336Z Introduction of Nutritional Substance into Peripheral Vein, Percutaneous Approach (ICD-10-PCS; 2019-12-18)
DX: K59.9 Functional intestinal disorder, unspecified (principal); I69.351 Hemiplegia and hemiparesis following cerebral infarction affecting right dominant side; K95.89 Other complications of other bariatric procedure; R11.2 Nausea with vomiting, unspecified; K64.9 Unspecified hemorrhoids; E78.5 Hyperlipidemia, unspecified; I10 Essential (primary) hypertension; K21.9 Gastro-esophageal reflux disease without esophagitis; F32.9 Major depressive disorder, single episode, unspecified; R07.89 Other chest pain; E86.0 Dehydration; K22.4 Dyskinesia of esophagus; F41.9 Anxiety disorder, unspecified; I25.10 Atherosclerotic heart disease of native coronary artery without angina pectoris; R50.9 Fever, unspecified; R13.10 Dysphagia, unspecified; K59.04 Chronic idiopathic constipation; R63.0 Anorexia; Y83.2 Surgical operation with anastomosis, bypass or graft as the cause of abnormal reaction of the patient, or of later complication, without mention of misadventure at the time of the procedure; H53.8 Other visual disturbances; K59.4 Anal spasm; R10.11 Right upper quadrant pain; R42 Dizziness and giddiness; Z11.59 Encounter for screening for other viral diseases; Z88.1 Allergy status to other antibiotic agents; Z90.49 Acquired absence of other specified parts of digestive tract; Z90.710 Acquired absence of both cervix and uterus; Z98.84 Bariatric surgery status; Z87.891 Personal history of nicotine dependence; Z87.19 Personal history of other diseases of the digestive system; Z68.28 Body mass index [BMI] 28.0-28.9, adult
CPT/HCPCS: 36415; 36416; 36600; 70553; 71045; 74018; 74177; 74246; 76705; 78264; 80048; 80053; 80061; 80306; 80400; 81001; 82024; 83036; 83690; 83735; 84100; 84443; 84484; 85025; 85027; 87086; 87635; 93005; 94760; 96360; 96361; A9541; A9579; C9113; J0834; J1650; J2270; J2405; J2550; J2704; J2765; Q0162; Q0169; U0003

== ENCOUNTER 2020-01-10 16:21 | Emergency (ER) | payer MEDICARE, MEDICAID ==
[~2020-01-10 16:21] MED LIST changes: -ISOVUE-370 76%-LOCM 1 ML ONE; +Iopamidol-370 76% 500 ML 1 ML ONE
[2020-01-10 17:03] LABS: #Eosinphils 0.4 thou/uL (0.0-0.7); #Lymphocytes 1.8 thou/uL (1.20-3.40); #Monocytes 0.5 thou/uL (0.11-0.59); #Neutrophils 5.1 thou/uL (1.40-6.50); %Basophils 0.5 % (0.0-1.0); %Eosinophils 4.9 % (0.0-10.0); %Lymphocytes 23.1 % (21.0-51.0); %Monocytes 6.1 % (0.0-10.0); %Neutrophils 65.5 % (42.0-75.0); Hemoglobin 12.3 g/dL (12.0-16.0); Mean Corpuscular HGB CONC 32.8 g/dL (32.0-36.0); Mean Corpuscular Hemoglobin 30.7 pg (27.0-31.0); Mean Corpuscular Volume 93.5 fL (78.0-98.0); Platelet Count 265 thou/uL (130-400); RBC Distribution Width 12.8 % (11.5-14.5); Red Blood Cell (RBC) Count 4.01 mill/uL (4.20-5.40); White Blood Cell (WBC) Count 7.7 thou/uL (4.8-10.8)
[2020-01-10 17:28] LABS: ALT (SGPT) 41 U/L (8-55); AST (SGOT) 34 U/L (5-34); Albumin 3.6 g/dL (3.5-5.0); Alkaline Phosphatase 119 U/L (40-110); Anion Gap 9 mmol/L (10-20); BUN (Urea Nitrogen) 10 mg/dL (7.0-18.7); Bilirubin, Total 0.7 mg/dL (0.2-1.2); Calc. Creatinine Clearance 0 mL/min (70-130); Calcium 8.7 mg/dL (7.8-10.44); Carbon Dioxide 22 mmol/L (22-29); Chloride 109 mmol/L (98-107); Estimated GFR-MDRD Greater than 90; Globulin 3.4 g/dL (2.4-3.5); Glucose 99 mg/dL (70-105); Lipase 157 U/L (8-78); Potassium 3.9 mmol/L (3.5-5.1); Sodium 136 mmol/L (136-145)
[2020-01-10] MEDS ORDERED: diphenhydrAMINE 50 MG/ML VIAL ONE (18:47)
[2020-01-10] MEDS ORDERED: Ondansetron PF 4 MG/2 ML Vial ONE (18:47)
[2020-01-10] MEDS ORDERED: Metoclopramide HCl 10 MG/2 ML VIAL ONE (18:47)
--- NOTE | 2020-01-10 19:30 | CT ---
CT ABDOMEN AND PELVIS WITH CONTRAST: Comparison: 12-09-2019 History: Decreased oral intact with chronic abdominal pain. Technique: Multiple contiguous axial images were obtained in a CT of the abdomen and pelvis with cont rast. Sagittal and coronal reformats were performed. FINDINGS: The patient is status post cholecystectomy. Post-surgical changes are seen in the stomach from prior gastric bypass surgery. The liver, kidneys, adrenal glands, spleen, and pancreas are unremarkable. No free air, free fluid, or stranding changes are seen in the abdomen or pelvis. A 4.4 cm cyst is seen in the pelvis which likely represents an ovarian cyst/follicle. This was not se en on the prior examination is likely physiologic. The uterus has been removed. The remaining large a nd small bowel are unremarkable. The appendix is not definitely seen. NO abdominal or pelvic lymphade nopathy are seen. Degenerative changes are seen in the spine. Visualized inferior thorax and abdominal soft tissues are unremarkable. IMPRESSION: 1. There is a physiologic cyst/follicle in the pelvis. 2. No other acute intraabdominal/pelvic abnormality is seen. POS: EAA
== END 2020-01-10 21:28 | disposition home or self-care (01) ==
LOC: ERS 16:21
DX: K86.1 Other chronic pancreatitis (principal); R11.2 Nausea with vomiting, unspecified; E11.9 Type 2 diabetes mellitus without complications; K21.9 Gastro-esophageal reflux disease without esophagitis; F41.9 Anxiety disorder, unspecified; Z79.82 Long term (current) use of aspirin; Z86.73 Personal history of transient ischemic attack (TIA), and cerebral infarction without residual deficits; Z79.899 Other long term (current) drug therapy
CPT/HCPCS: 36415; 74177; 80053; 83690; 85025; 96361; 96365; 96375; J1200; J2405; J2765; Q9967

== ENCOUNTER 2020-04-15 14:24 | Emergency (ER) | payer MEDICARE, MEDICAID ==
[2020-04-15] MEDS ORDERED: HYDROcodone/Acetaminophen 5/325 mg Tablet ONE (15:20)
[2020-04-15] MEDS ORDERED: Ondansetron ODT 4 MG TAB ONE (15:20)
== END 2020-04-15 15:51 | disposition home or self-care (01) ==
LOC: ERS 14:24
DX: T82.848A Pain due to vascular prosthetic devices, implants and grafts, initial encounter (principal); M79.601 Pain in right arm; I10 Essential (primary) hypertension; E11.9 Type 2 diabetes mellitus without complications; K21.9 Gastro-esophageal reflux disease without esophagitis; F32.9 Major depressive disorder, single episode, unspecified; F41.9 Anxiety disorder, unspecified; Z79.899 Other long term (current) drug therapy; Z79.82 Long term (current) use of aspirin
CPT/HCPCS: 99283; Q0162

== ENCOUNTER 2020-05-21 18:02 | Emergency (ER) | payer MEDICARE, MEDICAID ==
--- NOTE | 2020-05-21 18:30 | RAD ---
PORTABLE CHEST: 05/21/20 PROVIDED CLINICAL HISTORY: Chest pain. FINDINGS: Comparison 12/04/19. Cardiac and mediastinal silhouette is within normal limits. No focal consolidation, pleural fluid, or pneumothorax apparent. IMPRESSION: No evidence for acute cardiopulmonary process. POS: CARLO
[2020-05-21] MEDS ORDERED: Acetaminophen 500 MG TAB ONE ×2 (18:41→18:45)
[2020-05-21 19:08] LABS: #Basophils 0.1 thou/uL (0.0-0.2); #Eosinphils 0.2 thou/uL (0.0-0.7); #Lymphocytes 1.9 thou/uL (1.20-3.40); #Monocytes 0.6 thou/uL (0.11-0.59); #Neutrophils 4.5 thou/uL (1.40-6.50); %Basophils 1.2 % (0.0-1.0); %Eosinophils 3.2 % (0.0-10.0); %Lymphocytes 26.1 % (21.0-51.0); %Monocytes 7.9 % (0.0-10.0); %Neutrophils 61.6 % (42.0-75.0); Hemoglobin 11.4 g/dL (12.0-16.0); Mean Corpuscular HGB CONC 33.5 g/dL (32.0-36.0); Mean Corpuscular Hemoglobin 30.5 pg (27.0-31.0); Mean Corpuscular Volume 91.1 fL (78.0-98.0); Mean Platelet Volume 8.2 fL (7.4-10.4); Platelet Count 239 thou/uL (130-400); Red Blood Cell (RBC) Count 3.73 mill/uL (4.20-5.40); White Blood Cell (WBC) Count 7.4 thou/uL (4.8-10.8)
[2020-05-21 19:23] LABS: ALT (SGPT) 41 U/L (8-55); AST (SGOT) 51 U/L (5-34); Albumin 3.5 g/dL (3.5-5.0); Alkaline Phosphatase 126 U/L (40-110); Anion Gap 12 mmol/L (10-20); BUN (Urea Nitrogen) 8 mg/dL (7.0-18.7); Bilirubin, Total 0.3 mg/dL (0.2-1.2); CK (CPK) 88 U/L (29-168); Calc. Creatinine Clearance 0 mL/min (70-130); Calcium 8.4 mg/dL (7.8-10.44); Carbon Dioxide 23 mmol/L (22-29); Chloride 109 mmol/L (98-107); Estimated GFR-MDRD Greater than 90; Globulin 3.1 g/dL (2.4-3.5); Glucose 100 mg/dL (70-105); Lipase 147 U/L (8-78); Potassium 4.4 mmol/L (3.5-5.1); Protein, Total 6.6 g/dL (6.0-8.3); Sodium 140 mmol/L (136-145)
[2020-05-21 19:41] LABS: Bacteria/HPF None Seen HPF (None Seen); Bilirubin Negative (Negative); Blood, Urine 1+ (Negative); Clarity Clear (Clear); Glucose, Urine (Dipstick) Normal (Negative); Ketone, Urine Negative (Negative); Leukocyte Negative Leu/uL (Negative); Mucous/LPF Rare LPF (<2+); Nitrite Negative (Negative); Protein, Urine (Dipstick) Negative (Neg-Trace); Specific Gravity, Urine 1.021 (1.002-1.036); WBC/HPF 0-3 HPF (0-3); pH, Urine 7.5 (5.0-9.0)
[2020-05-21] MEDS ORDERED: Ketorolac Tromethamine 30 MG/ML VIAL ONE (20:37)
[2020-05-22 11:02] LABS: SARS-CoV-2 MS2 Positive; SARS-CoV-2 N Gene Negative; SARS-CoV-2 S Gene Negative; SARS-CoV-2 by NAA Not Detected (NotDetected); SARS-CoV-2 orf1ab Negative
== END 2020-05-21 21:00 | disposition home or self-care (01) ==
LOC: ERS 18:02
DX: R07.89 Other chest pain (principal); B34.9 Viral infection, unspecified; Z20.828 Contact with and (suspected) exposure to other viral communicable diseases; I10 Essential (primary) hypertension; E11.9 Type 2 diabetes mellitus without complications; K21.9 Gastro-esophageal reflux disease without esophagitis; Z79.899 Other long term (current) drug therapy
CPT/HCPCS: 71045; 80053; 82550; 83605; 83690; 84484; 85025; 87040; 87086; 93005; 96374; 99285; U0003; 36415; 81003; 81015; 87635; J1885

== ENCOUNTER 2020-07-15 10:07 | Outpatient (CLI) | payer MEDICARE, MEDICAID ==
--- NOTE | 2020-07-15 11:13 | MMO ---
Bilateral MAMMO Bilat Screen [facility]. CLINICAL HISTORY: Patient is 50 years old and is seen for screening. The patient has no family history of breast cancer. The patient has no personal history of cancer. The patient has a history of bilateral Breast reduction in 2016 - benign. VIEWS: The views performed were: bilateral craniocaudal with tomosynthesis and bilateral mediolateral oblique with tomosynthesis. FILMS COMPARED: The present examination has been compared to prior imaging studies performed at [facility] on 04/25/2012, 05/10/2015, 09/21/2016 and 11/29/2017. This study has been interpreted with the assistance of computer-aided detection. MAMMOGRAM FINDINGS: There are scattered fibroglandular densities. There are benign appearing calcifications seen in both breasts. There are no suspicious masses, suspicious calcifications, or new areas of architectural distortion. IMPRESSION: THERE IS NO MAMMOGRAPHIC EVIDENCE OF MALIGNANCY. A ROUTINE FOLLOW-UP MAMMOGRAM IN 1 YEAR IS RECOMMENDED. THE RESULTS OF THIS EXAM WERE SENT TO THE PATIENT. ACR BI-RADS Category 2 - Benign finding MAMMOGRAPHY NOTE: 1. A negative mammogram report should not delay a biopsy if a dominant of clinically suspicious mass is present. 2. Approximately 10% to 15% of breast cancers are not detected by mammography. 3. Adenosis and dense breasts may obscure an underlying neoplasm. Reported by: DENVER MORALES MD Electonically Signed: [id number]
== END 2020-07-15 10:08 | disposition home or self-care (01) ==
LOC: BICMAMMO 10:07
PROVIDERS: ATTEND Student in an Organized Health Care Education/Training Program
DX: Z12.31 Encounter for screening mammogram for malignant neoplasm of breast (principal); Z98.82 Breast implant status
CPT/HCPCS: 77063; 77067

== ENCOUNTER 2020-07-27 10:03 | Outpatient (CLI) | payer MEDICARE, MEDICAID | END 2020-07-27 10:04 | disposition home or self-care (01) | LOC: DTY/OP 10:03 | PROVIDERS: ATTEND Student in an Organized Health Care Education/Training Program | DX: E66.9 Obesity, unspecified (principal) | CPT/HCPCS: 97802 ==

== ENCOUNTER 2020-10-05 18:00 | Emergency (ER) | payer MEDICARE, MEDICAID ==
[2020-10-05] MEDS ORDERED: diphenhydrAMINE 50 MG/ML VIAL ONE (21:14)
[2020-10-05] MEDS ORDERED: Acetaminophen 500 MG TAB ONE (21:14)
[2020-10-05] MEDS ORDERED: Metoclopramide HCl 10 MG/2 ML VIAL ONE (21:14)
[2020-10-05] MEDS ORDERED: Magnesium 2 GM/50 ML BAG (IN WATER) ONE (21:14)
== END 2020-10-05 23:28 | disposition home or self-care (01) ==
LOC: ERS 18:00
DX: R51.9 Headache, unspecified (principal); E11.9 Type 2 diabetes mellitus without complications; K21.9 Gastro-esophageal reflux disease without esophagitis; I10 Essential (primary) hypertension; Z86.73 Personal history of transient ischemic attack (TIA), and cerebral infarction without residual deficits; Z79.82 Long term (current) use of aspirin; Z79.899 Other long term (current) drug therapy
CPT/HCPCS: 70450; 96365; 96368; 96375; J1200; J2765; J3475

== ENCOUNTER 2020-10-28 07:26 | Outpatient (CLI) | payer MEDICARE, MEDICAID | END 2020-10-28 07:27 | disposition home or self-care (01) | LOC: BICMRI 07:26 | PROVIDERS: ATTEND Family Medicine | DX: M47.22 Other spondylosis with radiculopathy, cervical region (principal); R29.898 Other symptoms and signs involving the musculoskeletal system | CPT/HCPCS: 72141 ==

== ENCOUNTER 2020-12-02 07:30 | Outpatient (CLI) | payer MEDICARE, MEDICAID | END 2020-12-02 07:31 | disposition home or self-care (01) | LOC: BICMRI 07:30 | PROVIDERS: ATTEND Student in an Organized Health Care Education/Training Program | DX: M43.16 Spondylolisthesis, lumbar region (principal); M47.816 Spondylosis without myelopathy or radiculopathy, lumbar region; M48.061 Spinal stenosis, lumbar region without neurogenic claudication; M48.07 Spinal stenosis, lumbosacral region | CPT/HCPCS: 72148 ==

== ENCOUNTER 2021-03-13 08:49 | Outpatient (CLI) | payer MEDICARE, MEDICAID | END 2021-03-13 08:50 | disposition home or self-care (01) | LOC: BICRAD 08:49 | PROVIDERS: ATTEND Neurological Surgery | DX: M47.26 Other spondylosis with radiculopathy, lumbar region (principal) | CPT/HCPCS: 72110 ==

== ENCOUNTER 2021-03-14 10:22 | Emergency (ER) | payer MEDICARE, MEDICAID ==
[2021-03-14] MEDS ORDERED: Ketorolac Tromethamine 30 MG/ML VIAL ONE (11:48)
[2021-03-14] MEDS ORDERED: Ondansetron ODT 4 MG TAB ONE (11:48)
== END 2021-03-14 12:30 | disposition home or self-care (01) ==
LOC: ERS 10:22
DX: M25.561 Pain in right knee (principal); K21.9 Gastro-esophageal reflux disease without esophagitis; E11.9 Type 2 diabetes mellitus without complications; I10 Essential (primary) hypertension
CPT/HCPCS: 36415; 85379; 96372; J1885; Q0162

== ENCOUNTER 2021-08-16 08:32 | Outpatient (CLI) | payer MEDICARE, MEDICAID | END 2021-08-16 08:33 | disposition home or self-care (01) | LOC: BICMAMMO 08:32 | PROVIDERS: ATTEND Student in an Organized Health Care Education/Training Program | DX: Z12.31 Encounter for screening mammogram for malignant neoplasm of breast (principal); Z98.82 Breast implant status | CPT/HCPCS: 77063; 77067 ==

== ENCOUNTER 2021-08-21 12:44 | Outpatient (CLI) | payer MEDICARE, MEDICAID | END 2021-08-21 12:45 | disposition home or self-care (01) | LOC: CT 12:44 | PROVIDERS: ATTEND Student in an Organized Health Care Education/Training Program | DX: Z12.2 Encounter for screening for malignant neoplasm of respiratory organs (principal); F17.211 Nicotine dependence, cigarettes, in remission | CPT/HCPCS: 71271 ==

== ENCOUNTER 2022-06-27 17:45 | Emergency (ER) | payer OTHER, MEDICAID | END 2022-06-27 20:43 | disposition home or self-care (01) | LOC: ERS 17:45 | DX: M13.861 Other specified arthritis, right knee (principal); K21.9 Gastro-esophageal reflux disease without esophagitis; E11.9 Type 2 diabetes mellitus without complications; I10 Essential (primary) hypertension; Z86.73 Personal history of transient ischemic attack (TIA), and cerebral infarction without residual deficits; Z79.4 Long term (current) use of insulin; M79.604 Pain in right leg; M25.561 Pain in right knee ==

== ENCOUNTER 2022-09-22 09:19 | Emergency (ER) | payer MEDICAID, OTHER ==
[2022-09-22 09:43] LABS: #Basophils 0.1 thou/uL (0.0-0.2); #Eosinphils 0.3 thou/uL (0.0-0.7); #Lymphocytes 1.9 thou/uL (1.20-3.40); #Monocytes 0.3 thou/uL (0.11-0.59); #Neutrophils 2.7 thou/uL (1.40-6.50); %Basophils 2.1 % (0.0-1.0); %Eosinophils 5.4 % (0.0-10.0); %Lymphocytes 36.4 % (21.0-51.0); %Monocytes 5.4 % (0.0-10.0); %Neutrophils 50.7 % (42.0-75.0); Hemoglobin 12.8 g/dL (12.0-16.0); Mean Corpuscular HGB CONC 32.9 g/dL (32.0-36.0); Mean Corpuscular Hemoglobin 30.9 pg (27.0-31.0); Mean Corpuscular Volume 93.9 fl (78.0-98.0); Mean Platelet Volume 8.1 fL (7.4-10.4); Platelet Count 278 10x3/uL (130-400); RBC Distribution Width 12.4 % (11.5-14.5); Red Blood Cell (RBC) Count 4.16 mill/uL (4.20-5.40); White Blood Cell (WBC) Count 5.3 10x3/uL (4.8-10.8)
[2022-09-22 10:02] LABS: ALT (SGPT) 11 U/L (8-55); AST (SGOT) 22 U/L (5-34); Albumin 4.1 g/dL (3.5-5.0); Alkaline Phosphatase 98 U/L (40-110); Anion Gap 10 mmol/L (10-20); BUN (Urea Nitrogen) 10 mg/dL (9.8-20.1); Bilirubin, Total 0.7 mg/dL (0.2-1.2); Calc. Creatinine Clearance 0 mL/min (70-130); Calcium 9.4 mg/dL (7.8-10.44); Carbon Dioxide 25 mmol/L (22-29); Chloride 105 mmol/L (98-107); Estimated GFR 101; Globulin 3.6 g/dL (2.4-3.5); Glucose 87 mg/dL (70-105); Lipase 140 U/L (8-78); Potassium 4.1 mmol/L (3.5-5.1); Protein, Total 7.7 g/dL (6.0-8.3); Sodium 136 mmol/L (136-145)
[2022-09-22] MEDS ORDERED: Morphine 4 MG/ML VIAL ONE ×2 (13:32→14:19)
[2022-09-22] MEDS ORDERED: Ondansetron PF 4 MG/2 ML Vial ONE (13:32)
== END 2022-09-22 15:17 | disposition home or self-care (01) ==
LOC: ERS 09:19
DX: K85.90 Acute pancreatitis without necrosis or infection, unspecified (principal); E11.9 Type 2 diabetes mellitus without complications; I10 Essential (primary) hypertension; K21.9 Gastro-esophageal reflux disease without esophagitis; Z86.73 Personal history of transient ischemic attack (TIA), and cerebral infarction without residual deficits
CPT/HCPCS: 36415; 74177; 80053; 83690; 85025; 96374; 96375; 96376; J2270; J2405

== ENCOUNTER 2022-12-04 14:57 | Outpatient (CLI) | payer OTHER, BC | END 2022-12-04 14:58 | disposition home or self-care (01) | LOC: BICRAD 14:57 | PROVIDERS: ATTEND Student in an Organized Health Care Education/Training Program | DX: M51.36 Other intervertebral disc degeneration, lumbar region (principal); M50.323 Other cervical disc degeneration at C6-C7 level; M47.812 Spondylosis without myelopathy or radiculopathy, cervical region; M47.816 Spondylosis without myelopathy or radiculopathy, lumbar region | CPT/HCPCS: 72040; 72100 ==

== ENCOUNTER 2022-12-07 15:10 | Inpatient (IN) | payer OTHER, BC ==
[~2022-12-07 15:10] MED LIST changes: -Iopamidol-370 76% 500 ML 1 ML ONE; +Iopamidol-370 76% 500 ML MDV (1 ML CHARGE) ONE
[2022-12-07 15:47] LABS: #Basophils 0.1 thou/uL (0.0-0.2); #Eosinphils 0.3 thou/uL (0.0-0.7); #Monocytes 0.4 thou/uL (0.11-0.59); #Neutrophils 4.9 thou/uL (1.40-6.50); %Basophils 1.2 % (0.0-1.0); %Eosinophils 4.2 % (0.0-10.0); %Lymphocytes 23.2 % (21.0-51.0); %Monocytes 5.8 % (0.0-10.0); %Neutrophils 65.5 % (42.0-75.0); Mean Corpuscular HGB CONC 33.5 g/dL (32.0-36.0); Mean Corpuscular Hemoglobin 30.4 pg (27.0-31.0); Mean Corpuscular Volume 90.9 fl (78.0-98.0); Mean Platelet Volume 10.4 fL (7.4-10.4); Platelet Count 305 10x3/uL (130-400); RBC Distribution Width 13.3 % (11.5-14.5); Red Blood Cell (RBC) Count 4.27 mill/uL (4.20-5.40); White Blood Cell (WBC) Count 7.4 10x3/uL (4.8-10.8)
[2022-12-07 16:05] LABS: PTT 30.3 sec (22.9-36.1); Prothrombin Time 13.5 sec (12.0-14.7)
[2022-12-07 16:08] LABS: ALT (SGPT) 20 U/L (8-55); AST (SGOT) 29 U/L (5-34); Albumin 4.6 g/dL (3.5-5.0); Alkaline Phosphatase 106 U/L (40-110); Anion Gap 8 mmol/L (10-20); BUN (Urea Nitrogen) 8 mg/dL (9.8-20.1); Bilirubin, Total 0.8 mg/dL (0.2-1.2); Calc. Creatinine Clearance 0 mL/min (70-130); Calcium 10.3 mg/dL (7.8-10.44); Carbon Dioxide 27 mmol/L (22-29); Chloride 106 mmol/L (98-107); Estimated GFR 81; Globulin 3.9 g/dL (2.4-3.5); Glucose 91 mg/dL (70-105); Potassium 4.1 mmol/L (3.5-5.1); Protein, Total 8.5 g/dL (6.0-8.3); Sodium 137 mmol/L (136-145)
[2022-12-07] MEDS ORDERED: Aspirin 300 MG Suppository ONE (17:23)
[2022-12-07 19:20] LABS: Troponin I Less than 0.010 ng/mL (< 0.028)
[2022-12-07 22:27] LABS: Troponin I Less than 0.010 ng/mL (< 0.028)
[2022-12-07 22:34] VITALS: BMI 34.7
[2022-12-08 05:34] LABS: #Basophils 0.1 thou/uL (0.0-0.2); #Eosinphils 0.6 thou/uL (0.0-0.7); #Monocytes 0.3 thou/uL (0.11-0.59); #Neutrophils 2.6 thou/uL (1.40-6.50); %Eosinophils 11.6 % (0.0-10.0); %Lymphocytes 31.6 % (21.0-51.0); %Monocytes 6.4 % (0.0-10.0); %Neutrophils 49.2 % (42.0-75.0); Hemoglobin 11.6 g/dL (12.0-16.0); Mean Corpuscular HGB CONC 33.2 g/dL (32.0-36.0); Mean Corpuscular Hemoglobin 29.7 pg (27.0-31.0); Mean Corpuscular Volume 89.3 fl (78.0-98.0); Mean Platelet Volume 10.5 fL (7.4-10.4); Platelet Count 250 10x3/uL (130-400); RBC Distribution Width 13.2 % (11.5-14.5); Red Blood Cell (RBC) Count 3.91 mill/uL (4.20-5.40); White Blood Cell (WBC) Count 5.2 10x3/uL (4.8-10.8)
[2022-12-08 05:57] LABS: Anion Gap 11 mmol/L (10-20); BUN (Urea Nitrogen) 7 mg/dL (9.8-20.1); Calc. Creatinine Clearance 122 mL/min (70-130); Calcium 9.4 mg/dL (7.8-10.44); Carbon Dioxide 23 mmol/L (22-29); Chloride 109 mmol/L (98-107); Estimated GFR 104; Glucose 86 mg/dL (70-105); Potassium 3.6 mmol/L (3.5-5.1); Sodium 139 mmol/L (136-145)
[2022-12-08] MEDS: Aspirin Chewable 81 MG TAB PO SCH (08:19)
[2022-12-08] MEDS: Gabapentin 300 MG CAP PO SCH ×3 (08:19→20:09)
[2022-12-08] MEDS: Venlafaxine HCl XR 150 MG CAP PO SCH (08:20)
[2022-12-08] MEDS: Atorvastatin Calcium 40 MG TAB PO SCH (08:20)
[2022-12-08] MEDS: Acetaminophen 325 MG TAB PO PRN (08:20)
[2022-12-08] MEDS: Ondansetron ODT 4 MG TAB PO PRN ×3 (08:20→20:08)
[2022-12-08] MEDS: metFORMIN 500 MG TAB PO SCH ×2 (08:20→16:35)
[2022-12-08] MEDS: Lisinopril 10 MG TAB PO SCH (08:20)
[2022-12-08] MEDS: Polyethylene Glycol 3350 17 GM Packet PO PRN (11:30)
[2022-12-08] MEDS ORDERED: Naproxen 500 MG TAB PO PRN (11:57)
[2022-12-08] MEDS: hydrOXYzine 25 MG TAB PO SCH (20:09)
[2022-12-09] MEDS ORDERED: Metoclopramide HCl 10 MG TAB PO SCH (05:00)
[2022-12-09] MEDS: Lisinopril 10 MG TAB PO SCH (08:33)
[2022-12-09] MEDS: Gabapentin 300 MG CAP PO SCH ×3 (08:33→20:17)
[2022-12-09] MEDS: Acetaminophen 325 MG TAB PO PRN ×3 (08:33→20:17)
[2022-12-09] MEDS: Atorvastatin Calcium 40 MG TAB PO SCH (08:34)
[2022-12-09] MEDS: Venlafaxine HCl XR 150 MG CAP PO SCH (08:35)
[2022-12-09] MEDS: metFORMIN 500 MG TAB PO SCH ×2 (08:35→17:01)
[2022-12-09] MEDS: Aspirin Chewable 81 MG TAB PO SCH (08:35)
[2022-12-09] MEDS: Fluticasone Propionate Nasal Spray 16 gm Bottle NASAL SCH (09:10)
[2022-12-09 14:54] LABS: Troponin I Less than 0.010 ng/mL (< 0.028)
[2022-12-09] MEDS: Ondansetron ODT 4 MG TAB PO PRN (18:14)
[2022-12-09] MEDS: hydrOXYzine 25 MG TAB PO SCH (20:17)
[2022-12-10 06:42] LABS: #Basophils 0.1 thou/uL (0.0-0.2); #Eosinphils 0.1 thou/uL (0.0-0.7); #Monocytes 0.3 thou/uL (0.11-0.59); #Neutrophils 2.4 thou/uL (1.40-6.50); %Basophils 1.3 % (0.0-1.0); %Eosinophils 2.7 % (0.0-10.0); %Lymphocytes 39.9 % (21.0-51.0); %Monocytes 6.3 % (0.0-10.0); %Neutrophils 49.8 % (42.0-75.0); Hemoglobin 11.9 g/dL (12.0-16.0); Mean Corpuscular HGB CONC 33.4 g/dL (32.0-36.0); Mean Corpuscular Hemoglobin 30.7 pg (27.0-31.0); Mean Corpuscular Volume 91.8 fl (78.0-98.0); Mean Platelet Volume 10.2 fL (7.4-10.4); Platelet Count 272 10x3/uL (130-400); Red Blood Cell (RBC) Count 3.88 mill/uL (4.20-5.40); White Blood Cell (WBC) Count 4.8 10x3/uL (4.8-10.8)
[2022-12-10 07:04] LABS: Anion Gap 9 mmol/L (10-20); BUN (Urea Nitrogen) 9 mg/dL (9.8-20.1); Calc. Creatinine Clearance 104 mL/min (70-130); Calcium 9.3 mg/dL (7.8-10.44); Carbon Dioxide 26 mmol/L (22-29); Chloride 104 mmol/L (98-107); Estimated GFR 87; Glucose 89 mg/dL (70-105); Potassium 3.8 mmol/L (3.5-5.1); Sodium 135 mmol/L (136-145)
[2022-12-10] MEDS: Atorvastatin Calcium 40 MG TAB PO SCH (08:13)
[2022-12-10] MEDS: Gabapentin 300 MG CAP PO SCH ×3 (08:13→21:49)
[2022-12-10] MEDS: Aspirin Chewable 81 MG TAB PO SCH (08:14)
[2022-12-10] MEDS: Venlafaxine HCl XR 150 MG CAP PO SCH (08:14)
[2022-12-10] MEDS: metFORMIN 500 MG TAB PO SCH (08:14)
[2022-12-10] MEDS: Lisinopril 10 MG TAB PO SCH (08:14)
[2022-12-10] MEDS: Fluticasone Propionate Nasal Spray 16 gm Bottle NASAL SCH (08:14)
[2022-12-10] MEDS: Ondansetron ODT 4 MG TAB PO PRN ×2 (08:25→15:56)
[2022-12-10] MEDS: Acetaminophen 325 MG TAB PO PRN (15:56)
[2022-12-10] MEDS: hydrOXYzine 25 MG TAB PO SCH (21:48)
[2022-12-11 05:11] LABS: #Basophils 0.1 thou/uL (0.0-0.2); #Eosinphils 0.2 thou/uL (0.0-0.7); #Monocytes 0.3 thou/uL (0.11-0.59); %Eosinophils 3.1 % (0.0-10.0); %Lymphocytes 37.2 % (21.0-51.0); %Monocytes 5.4 % (0.0-10.0); %Neutrophils 53.1 % (42.0-75.0); Hemoglobin 11.8 g/dL (12.0-16.0); Mean Corpuscular HGB CONC 33.8 g/dL (32.0-36.0); Mean Corpuscular Hemoglobin 30.5 pg (27.0-31.0); Mean Corpuscular Volume 90.2 fl (78.0-98.0); Mean Platelet Volume 10.4 fL (7.4-10.4); Platelet Count 268 10x3/uL (130-400); RBC Distribution Width 12.8 % (11.5-14.5); Red Blood Cell (RBC) Count 3.87 mill/uL (4.20-5.40); White Blood Cell (WBC) Count 5.7 10x3/uL (4.8-10.8)
[2022-12-11 05:36] LABS: Anion Gap 9 mmol/L (10-20); BUN (Urea Nitrogen) 10 mg/dL (9.8-20.1); Calc. Creatinine Clearance 113 mL/min (70-130); Carbon Dioxide 28 mmol/L (22-29); Chloride 104 mmol/L (98-107); Estimated GFR 97; Glucose 83 mg/dL (70-105); Potassium 3.6 mmol/L (3.5-5.1); Sodium 137 mmol/L (136-145)
[2022-12-11] MEDS: Atorvastatin Calcium 40 MG TAB PO SCH (08:55)
[2022-12-11] MEDS: Gabapentin 300 MG CAP PO SCH ×3 (08:55→20:44)
[2022-12-11] MEDS: Lisinopril 10 MG TAB PO SCH (08:55)
[2022-12-11] MEDS: Venlafaxine HCl XR 150 MG CAP PO SCH (08:55)
[2022-12-11] MEDS: Fluticasone Propionate Nasal Spray 16 gm Bottle NASAL SCH (08:55)
[2022-12-11] MEDS: Aspirin Chewable 81 MG TAB PO SCH (08:55)
[2022-12-11] MEDS: Polyethylene Glycol 3350 17 GM Packet PO PRN (11:16)
[2022-12-11] MEDS: Ondansetron ODT 4 MG TAB PO PRN ×2 (11:16→20:44)
[2022-12-11] MEDS: hydrOXYzine 25 MG TAB PO SCH (20:44)
[2022-12-12] MEDS: Ondansetron ODT 4 MG TAB PO PRN ×2 (04:11→21:05)
[2022-12-12] MEDS: Polyethylene Glycol 3350 17 GM Packet PO PRN (08:52)
[2022-12-12] MEDS: Fluticasone Propionate Nasal Spray 16 gm Bottle NASAL SCH (08:52)
[2022-12-12] MEDS: Lisinopril 10 MG TAB PO SCH (08:53)
[2022-12-12] MEDS: Aspirin Chewable 81 MG TAB PO SCH (08:53)
[2022-12-12] MEDS: Venlafaxine HCl XR 150 MG CAP PO SCH (08:53)
[2022-12-12] MEDS: Gabapentin 300 MG CAP PO SCH ×3 (08:53→21:05)
[2022-12-12] MEDS: Atorvastatin Calcium 40 MG TAB PO SCH (08:53)
[2022-12-12] MEDS: Acetaminophen 325 MG TAB PO PRN (16:38)
[2022-12-12] MEDS ORDERED: Nitroglycerin 0.4 MG TAB (25 Tab Bottle) SL PRN (17:10)
[2022-12-12] MEDS: hydrOXYzine 25 MG TAB PO SCH (21:05)
[2022-12-13 05:18] LABS: #Basophils 0.1 thou/uL (0.0-0.2); #Eosinphils 0.4 thou/uL (0.0-0.7); #Monocytes 0.3 thou/uL (0.11-0.59); #Neutrophils 2.3 thou/uL (1.40-6.50); %Basophils 1.1 % (0.0-1.0); %Neutrophils 43.7 % (42.0-75.0); Hemoglobin 11.4 g/dL (12.0-16.0); Mean Corpuscular HGB CONC 33.1 g/dL (32.0-36.0); Mean Corpuscular Hemoglobin 30.2 pg (27.0-31.0); Mean Corpuscular Volume 91.2 fl (78.0-98.0); Mean Platelet Volume 11.7 fL (7.4-10.4); Platelet Count 183 10x3/uL (130-400); RBC Distribution Width 13.1 % (11.5-14.5); Red Blood Cell (RBC) Count 3.77 mill/uL (4.20-5.40); White Blood Cell (WBC) Count 5.3 10x3/uL (4.8-10.8)
[2022-12-13 07:19] LABS: Anion Gap 13 mmol/L (10-20); BUN (Urea Nitrogen) 15 mg/dL (9.8-20.1); Calc. Creatinine Clearance 108 mL/min (70-130); Calcium 9.1 mg/dL (7.8-10.44); Carbon Dioxide 22 mmol/L (22-29); Chloride 109 mmol/L (98-107); Estimated GFR 91; Glucose 80 mg/dL (70-105); Potassium 4.3 mmol/L (3.5-5.1); Sodium 140 mmol/L (136-145)
[2022-12-13] MEDS: Polyethylene Glycol 3350 17 GM Packet PO SCH (08:36)
[2022-12-13] MEDS: Fluticasone Propionate Nasal Spray 16 gm Bottle NASAL SCH (08:49)
[2022-12-13] MEDS: Gabapentin 300 MG CAP PO SCH ×3 (08:50→22:56)
[2022-12-13] MEDS: Atorvastatin Calcium 40 MG TAB PO SCH (08:50)
[2022-12-13] MEDS: Aspirin Chewable 81 MG TAB PO SCH (08:50)
[2022-12-13] MEDS: Venlafaxine HCl XR 150 MG CAP PO SCH (08:51)
[2022-12-13] MEDS: Lisinopril 10 MG TAB PO SCH (09:06)
[2022-12-13] MEDS: Ondansetron ODT 4 MG TAB PO PRN (11:23)
[2022-12-13] MEDS ORDERED: Lactated Ringer's 1,000 ML IV SCH (11:30)
[2022-12-13] MEDS: hydrOXYzine 25 MG TAB PO SCH (22:57)
[2022-12-14] MEDS: Polyethylene Glycol 3350 17 GM Packet PO SCH (09:34)
[2022-12-14] MEDS: Gabapentin 300 MG CAP PO SCH ×3 (09:35→20:15)
[2022-12-14] MEDS: Venlafaxine HCl XR 150 MG CAP PO SCH (09:36)
[2022-12-14] MEDS: Lisinopril 10 MG TAB PO SCH (09:36)
[2022-12-14] MEDS: Metoclopramide HCl 10 MG TAB PO PRN ×2 (09:36→20:15)
[2022-12-14] MEDS: Aspirin Chewable 81 MG TAB PO SCH (09:36)
[2022-12-14] MEDS: Fluticasone Propionate Nasal Spray 16 gm Bottle NASAL SCH (09:37)
[2022-12-14] MEDS: Atorvastatin Calcium 40 MG TAB PO SCH (09:37)
[2022-12-14] MEDS ORDERED: Lactated Ringer's 1,000 ML IV SCH (12:00)
[2022-12-14] MEDS: hydrOXYzine 25 MG TAB PO SCH (20:15)
[2022-12-14] MEDS: Acetaminophen 325 MG TAB PO PRN (20:43)
[2022-12-15 05:26] LABS: #Basophils 0.1 thou/uL (0.0-0.2); #Eosinphils 0.3 thou/uL (0.0-0.7); #Monocytes 0.3 thou/uL (0.11-0.59); #Neutrophils 2.3 thou/uL (1.40-6.50); %Eosinophils 6.9 % (0.0-10.0); %Lymphocytes 37.5 % (21.0-51.0); %Monocytes 6.9 % (0.0-10.0); %Neutrophils 47.7 % (42.0-75.0); Hemoglobin 11.2 g/dL (12.0-16.0); Mean Corpuscular HGB CONC 32.7 g/dL (32.0-36.0); Mean Corpuscular Hemoglobin 30.6 pg (27.0-31.0); Mean Corpuscular Volume 93.4 fl (78.0-98.0); Mean Platelet Volume 10.6 fL (7.4-10.4); Platelet Count 242 10x3/uL (130-400); RBC Distribution Width 13.2 % (11.5-14.5); Red Blood Cell (RBC) Count 3.66 mill/uL (4.20-5.40); White Blood Cell (WBC) Count 4.8 10x3/uL (4.8-10.8)
[2022-12-15 05:52] LABS: Anion Gap 13 mmol/L (10-20); BUN (Urea Nitrogen) 10 mg/dL (9.8-20.1); Calc. Creatinine Clearance 110 mL/min (70-130); Calcium 9.1 mg/dL (7.8-10.44); Carbon Dioxide 22 mmol/L (22-29); Chloride 111 mmol/L (98-107); Estimated GFR 94; Glucose 109 mg/dL (70-105); Sodium 142 mmol/L (136-145)
[2022-12-15] MEDS: Polyethylene Glycol 3350 17 GM Packet PO SCH (10:02)
[2022-12-15] MEDS: Aspirin Chewable 81 MG TAB PO SCH (10:03)
[2022-12-15] MEDS: Gabapentin 300 MG CAP PO SCH ×3 (10:03→20:02)
[2022-12-15] MEDS: Fluticasone Propionate Nasal Spray 16 gm Bottle NASAL SCH (10:03)
[2022-12-15] MEDS: Lisinopril 10 MG TAB PO SCH (10:04)
[2022-12-15] MEDS: Atorvastatin Calcium 40 MG TAB PO SCH (10:04)
[2022-12-15] MEDS: Venlafaxine HCl XR 150 MG CAP PO SCH (10:04)
[2022-12-15] MEDS: Metoclopramide HCl 10 MG TAB PO PRN ×2 (10:08→20:02)
[2022-12-15] MEDS: hydrOXYzine 25 MG TAB PO SCH (20:03)
[2022-12-15] MEDS: Meclizine HCl 12.5 MG TAB PO PRN (20:05)
[2022-12-16] MEDS: Polyethylene Glycol 3350 17 GM Packet PO SCH (09:48)
[2022-12-16] MEDS: Fluticasone Propionate Nasal Spray 16 gm Bottle NASAL SCH (09:49)
[2022-12-16] MEDS: Atorvastatin Calcium 40 MG TAB PO SCH (09:49)
[2022-12-16] MEDS: Lisinopril 10 MG TAB PO SCH (09:49)
[2022-12-16] MEDS: Venlafaxine HCl XR 150 MG CAP PO SCH (09:49)
[2022-12-16] MEDS: Meclizine HCl 12.5 MG TAB PO PRN (09:49)
[2022-12-16] MEDS: Aspirin Chewable 81 MG TAB PO SCH (09:49)
[2022-12-16] MEDS: Gabapentin 300 MG CAP PO SCH ×3 (09:50→21:43)
[2022-12-16] MEDS: Metoclopramide HCl 10 MG TAB PO PRN (21:43)
[2022-12-16] MEDS: hydrOXYzine 25 MG TAB PO SCH (21:43)
[2022-12-17] MEDS: Metoclopramide HCl 10 MG TAB PO PRN ×2 (08:41→21:44)
[2022-12-17] MEDS: Lisinopril 10 MG TAB PO SCH (08:41)
[2022-12-17] MEDS: Aspirin Chewable 81 MG TAB PO SCH (08:41)
[2022-12-17] MEDS: Gabapentin 300 MG CAP PO SCH ×3 (08:41→21:44)
[2022-12-17] MEDS: Atorvastatin Calcium 40 MG TAB PO SCH (08:41)
[2022-12-17] MEDS: Venlafaxine HCl XR 150 MG CAP PO SCH (08:41)
[2022-12-17] MEDS: Fluticasone Propionate Nasal Spray 16 gm Bottle NASAL SCH (08:42)
[2022-12-17] MEDS: Polyethylene Glycol 3350 17 GM Packet PO SCH (08:42)
[2022-12-17 11:15] LABS: #Basophils 0.1 thou/uL (0.0-0.2); #Eosinphils 0.3 thou/uL (0.0-0.7); #Monocytes 0.5 thou/uL (0.11-0.59); #Neutrophils 3.3 thou/uL (1.40-6.50); %Basophils 0.9 % (0.0-1.0); %Eosinophils 5.3 % (0.0-10.0); %Lymphocytes 28.4 % (21.0-51.0); %Monocytes 8.8 % (0.0-10.0); %Neutrophils 56.3 % (42.0-75.0); Hemoglobin 11.4 g/dL (12.0-16.0); Mean Corpuscular HGB CONC 33.6 g/dL (32.0-36.0); Mean Corpuscular Hemoglobin 30.4 pg (27.0-31.0); Mean Corpuscular Volume 90.4 fl (78.0-98.0); Mean Platelet Volume 10.6 fL (7.4-10.4); Platelet Count 247 10x3/uL (130-400); RBC Distribution Width 13.3 % (11.5-14.5); Red Blood Cell (RBC) Count 3.75 mill/uL (4.20-5.40); White Blood Cell (WBC) Count 5.8 10x3/uL (4.8-10.8)
[2022-12-17 11:44] LABS: Anion Gap 14 mmol/L (10-20); BUN (Urea Nitrogen) 11 mg/dL (9.8-20.1); Calc. Creatinine Clearance 113 mL/min (70-130); Calcium 9.2 mg/dL (7.8-10.44); Carbon Dioxide 21 mmol/L (22-29); Chloride 107 mmol/L (98-107); Estimated GFR 97; Glucose 50 mg/dL (70-105); Potassium 4.8 mmol/L (3.5-5.1); Sodium 137 mmol/L (136-145)
[2022-12-17] MEDS: Meclizine HCl 12.5 MG TAB PO PRN (13:34)
[2022-12-17] MEDS: hydrOXYzine 25 MG TAB PO SCH (21:45)
[2022-12-18] MEDS: Acetaminophen 325 MG TAB PO PRN (05:49)
[2022-12-18] MEDS: Metoclopramide HCl 10 MG TAB PO PRN (08:33)
[2022-12-18] MEDS: Aspirin Chewable 81 MG TAB PO SCH (08:33)
[2022-12-18] MEDS: Gabapentin 300 MG CAP PO SCH ×3 (08:33→20:15)
[2022-12-18] MEDS: Fluticasone Propionate Nasal Spray 16 gm Bottle NASAL SCH (08:33)
[2022-12-18] MEDS: Venlafaxine HCl XR 150 MG CAP PO SCH (08:33)
[2022-12-18] MEDS: Atorvastatin Calcium 40 MG TAB PO SCH (08:33)
[2022-12-18] MEDS: Lisinopril 10 MG TAB PO SCH (08:37)
[2022-12-18] MEDS: Polyethylene Glycol 3350 17 GM Packet PO SCH (08:37)
[2022-12-18] MEDS: hydrOXYzine 25 MG TAB PO SCH (20:15)
[2022-12-19 08:14] LABS: #Basophils 0.1 thou/uL (0.0-0.2); #Eosinphils 0.3 thou/uL (0.0-0.7); #Monocytes 0.5 thou/uL (0.11-0.59); #Neutrophils 2.5 thou/uL (1.40-6.50); %Basophils 1.2 % (0.0-1.0); %Eosinophils 6.5 % (0.0-10.0); %Lymphocytes 33.9 % (21.0-51.0); %Monocytes 9.6 % (0.0-10.0); %Neutrophils 48.6 % (42.0-75.0); Hemoglobin 11.3 g/dL (12.0-16.0); Mean Corpuscular HGB CONC 32.9 g/dL (32.0-36.0); Mean Corpuscular Hemoglobin 30.3 pg (27.0-31.0); Mean Platelet Volume 10.8 fL (7.4-10.4); Platelet Count 273 10x3/uL (130-400); RBC Distribution Width 13.2 % (11.5-14.5); Red Blood Cell (RBC) Count 3.73 mill/uL (4.20-5.40); White Blood Cell (WBC) Count 5.1 10x3/uL (4.8-10.8)
[2022-12-19 08:31] LABS: Anion Gap 12 mmol/L (10-20); BUN (Urea Nitrogen) 12 mg/dL (9.8-20.1); Calc. Creatinine Clearance 110 mL/min (70-130); Carbon Dioxide 23 mmol/L (22-29); Chloride 107 mmol/L (98-107); Estimated GFR 94; Glucose 107 mg/dL (70-105); Potassium 3.9 mmol/L (3.5-5.1); Sodium 138 mmol/L (136-145)
[2022-12-19] MEDS: Venlafaxine HCl XR 150 MG CAP PO SCH (08:39)
[2022-12-19] MEDS: Polyethylene Glycol 3350 17 GM Packet PO SCH (08:39)
[2022-12-19] MEDS: Gabapentin 300 MG CAP PO SCH ×3 (08:39→19:58)
[2022-12-19] MEDS: Lisinopril 10 MG TAB PO SCH (08:39)
[2022-12-19] MEDS: Atorvastatin Calcium 40 MG TAB PO SCH (08:39)
[2022-12-19] MEDS: Fluticasone Propionate Nasal Spray 16 gm Bottle NASAL SCH (08:40)
[2022-12-19] MEDS: Aspirin Chewable 81 MG TAB PO SCH (08:40)
[2022-12-19] MEDS: Metoclopramide HCl 10 MG TAB PO PRN (14:57)
[2022-12-19] MEDS: hydrOXYzine 25 MG TAB PO SCH (19:58)
[2022-12-20] MEDS: Metoclopramide HCl 10 MG TAB PO PRN (04:28)
[2022-12-20] MEDS: Gabapentin 300 MG CAP PO SCH ×3 (09:37→20:04)
[2022-12-20] MEDS: Lisinopril 10 MG TAB PO SCH (09:37)
[2022-12-20] MEDS: Aspirin Chewable 81 MG TAB PO SCH (09:37)
[2022-12-20] MEDS: Atorvastatin Calcium 40 MG TAB PO SCH (09:37)
[2022-12-20] MEDS: Polyethylene Glycol 3350 17 GM Packet PO SCH (09:38)
[2022-12-20] MEDS: Venlafaxine HCl XR 150 MG CAP PO SCH (09:38)
[2022-12-20] MEDS: Fluticasone Propionate Nasal Spray 16 gm Bottle NASAL SCH (09:38)
[2022-12-20] MEDS: Acetaminophen 325 MG TAB PO PRN (09:41)
[2022-12-20] MEDS: hydrOXYzine 25 MG TAB PO SCH (20:04)
[2022-12-21] MEDS: Polyethylene Glycol 3350 17 GM Packet PO SCH (07:54)
[2022-12-21] MEDS: Aspirin Chewable 81 MG TAB PO SCH (07:55)
[2022-12-21] MEDS: Atorvastatin Calcium 40 MG TAB PO SCH (07:55)
[2022-12-21] MEDS: Gabapentin 300 MG CAP PO SCH ×3 (07:55→20:28)
[2022-12-21] MEDS: Lisinopril 10 MG TAB PO SCH (07:55)
[2022-12-21] MEDS: Venlafaxine HCl XR 150 MG CAP PO SCH (07:55)
[2022-12-21] MEDS: Fluticasone Propionate Nasal Spray 16 gm Bottle NASAL SCH (08:38)
[2022-12-21] MEDS: Metoclopramide HCl 10 MG TAB PO PRN (20:28)
[2022-12-21] MEDS: hydrOXYzine 25 MG TAB PO SCH (20:33)
[2022-12-21] MEDS: Meclizine HCl 12.5 MG TAB PO PRN (20:51)
[2022-12-22] MEDS: Aspirin Chewable 81 MG TAB PO SCH (09:30)
[2022-12-22] MEDS: Atorvastatin Calcium 40 MG TAB PO SCH (09:30)
[2022-12-22] MEDS: Fluticasone Propionate Nasal Spray 16 gm Bottle NASAL SCH (09:31)
[2022-12-22] MEDS: Lisinopril 10 MG TAB PO SCH (09:32)
[2022-12-22] MEDS: Polyethylene Glycol 3350 17 GM Packet PO SCH (09:32)
[2022-12-22] MEDS: Venlafaxine HCl XR 150 MG CAP PO SCH (09:33)
[2022-12-22] MEDS: Gabapentin 300 MG CAP PO SCH ×3 (09:33→21:23)
[2022-12-22] MEDS ORDERED: Senokot S 8.6-50 MG TAB PO SCH (15:30)
[2022-12-22] MEDS: hydrOXYzine 25 MG TAB PO SCH (21:23)
[2022-12-22] MEDS: Senokot S 8.6-50 MG TAB PO SCH (21:24)
[2022-12-22] MEDS: Metoclopramide HCl 10 MG TAB PO PRN (21:24)
[2022-12-23] MEDS: Polyethylene Glycol 3350 17 GM Packet PO SCH (08:43)
[2022-12-23] MEDS: Lisinopril 10 MG TAB PO SCH (08:43)
[2022-12-23] MEDS: Venlafaxine HCl XR 150 MG CAP PO SCH (08:43)
[2022-12-23] MEDS: Atorvastatin Calcium 40 MG TAB PO SCH (08:43)
[2022-12-23] MEDS: Aspirin Chewable 81 MG TAB PO SCH (08:43)
[2022-12-23] MEDS: Senokot S 8.6-50 MG TAB PO SCH ×2 (08:43→20:55)
[2022-12-23] MEDS: Fluticasone Propionate Nasal Spray 16 gm Bottle NASAL SCH (08:44)
[2022-12-23] MEDS: Gabapentin 300 MG CAP PO SCH ×3 (08:44→20:54)
[2022-12-23] MEDS: Acetaminophen 325 MG TAB PO PRN (20:53)
[2022-12-23] MEDS: Metoclopramide HCl 10 MG TAB PO PRN (20:55)
[2022-12-23] MEDS: hydrOXYzine 25 MG TAB PO SCH (21:01)
[2022-12-23] MEDS ORDERED: Simethicone Chewable 80 MG TAB PO PRN (21:23)
[2022-12-23] MEDS ORDERED: Metoclopramide 10 MG/10 ML UDCUP PO SCH (21:30)
[2022-12-23] MEDS ORDERED: Bisacodyl 10 MG SUPP PR SCH (21:30)
[2022-12-23] MEDS ORDERED: Polyethylene Glycol 3350 17 GM Packet PO SCH (21:30)
[2022-12-24] MEDS: Polyethylene Glycol 3350 17 GM Packet PO SCH (08:48)
[2022-12-24] MEDS: Atorvastatin Calcium 40 MG TAB PO SCH (08:48)
[2022-12-24] MEDS: Senokot S 8.6-50 MG TAB PO SCH ×2 (08:48→21:16)
[2022-12-24] MEDS: Aspirin Chewable 81 MG TAB PO SCH (08:49)
[2022-12-24] MEDS: Gabapentin 300 MG CAP PO SCH ×3 (08:49→21:16)
[2022-12-24] MEDS: Venlafaxine HCl XR 150 MG CAP PO SCH (08:49)
[2022-12-24] MEDS: Fluticasone Propionate Nasal Spray 16 gm Bottle NASAL SCH (08:50)
[2022-12-24] MEDS: Lisinopril 10 MG TAB PO SCH (08:52)
[2022-12-24] MEDS ORDERED: Lidocaine 4% Patch TD SCH (09:00)
[2022-12-24] MEDS ORDERED: Ondansetron ODT 4 MG TAB SL PRN (09:19)
[2022-12-24 19:14] VITALS: BP 101/68; TEMP 98.4
[2022-12-24] MEDS ORDERED: Transdermal Patch Removal TOP SCH (21:00)
[2022-12-24] MEDS: hydrOXYzine 25 MG TAB PO SCH (21:16)
== END 2022-12-24 22:28 | disposition home health service (06) | DRG 880 ==
LOC: ERS 15:10 → EEVIPCON 17:50 → NEURO 17:50 → OBSVTOIN 12-09 13:39 → T4-A 12-16 17:39
PROVIDERS: ADMIT Family Medicine; ATTEND Family Medicine
DX: F44.4 Conversion disorder with motor symptom or deficit (principal); I69.351 Hemiplegia and hemiparesis following cerebral infarction affecting right dominant side; G45.9 Transient cerebral ischemic attack, unspecified; F32.9 Major depressive disorder, single episode, unspecified; F41.9 Anxiety disorder, unspecified; F43.10 Post-traumatic stress disorder, unspecified; E66.9 Obesity, unspecified; K21.9 Gastro-esophageal reflux disease without esophagitis; E78.5 Hyperlipidemia, unspecified; G47.33 Obstructive sleep apnea (adult) (pediatric); E11.9 Type 2 diabetes mellitus without complications; D64.9 Anemia, unspecified; K59.00 Constipation, unspecified; I10 Essential (primary) hypertension; Z88.1 Allergy status to other antibiotic agents; Z79.82 Long term (current) use of aspirin; Z79.899 Other long term (current) drug therapy; Z79.84 Long term (current) use of oral hypoglycemic drugs; Z90.49 Acquired absence of other specified parts of digestive tract; Z90.710 Acquired absence of both cervix and uterus; Z98.890 Other specified postprocedural states; Z87.891 Personal history of nicotine dependence; Z68.34 Body mass index [BMI] 34.0-34.9, adult
CPT/HCPCS: 36415; 36416; 70450; 70496; 70498; 70551; 80048; 80053; 83690; 84484; 85025; 85610; 85730; 93005; 93010; 94760; 96372; G0378; J1650; J7120; Q0162; Q9967

== ENCOUNTER 2023-01-12 21:12 | Observation (INO) | payer BC, MEDICARE ==
[2023-01-12] MEDS ORDERED: Aspirin 325 MG TAB ONE (22:06)
[2023-01-12] MEDS ORDERED: Morphine 4 MG/ML VIAL ONE ×2 (22:06→23:22)
[2023-01-12 22:57] LABS: #Basophils 0.1 thou/uL (0.0-0.2); #Eosinphils 0.4 thou/uL (0.0-0.7); #Monocytes 0.4 thou/uL (0.11-0.59); #Neutrophils 3.4 thou/uL (1.40-6.50); %Basophils 1.1 % (0.0-1.0); %Eosinophils 5.3 % (0.0-10.0); %Lymphocytes 39.9 % (21.0-51.0); %Neutrophils 47.4 % (42.0-75.0); Hemoglobin 11.9 g/dL (12.0-16.0); Mean Corpuscular HGB CONC 32.9 g/dL (32.0-36.0); Mean Corpuscular Hemoglobin 30.4 pg (27.0-31.0); Mean Corpuscular Volume 92.3 fl (78.0-98.0); Mean Platelet Volume 10.9 fL (7.4-10.4); Platelet Count 283 10x3/uL (130-400); RBC Distribution Width 13.9 % (11.5-14.5); Red Blood Cell (RBC) Count 3.92 mill/uL (4.20-5.40); White Blood Cell (WBC) Count 7.2 10x3/uL (4.8-10.8)
[2023-01-12] MEDS ORDERED: Ondansetron PF 4 MG/2 ML Vial ONE (23:26)
[2023-01-12 23:27] LABS: ALT (SGPT) 51 U/L (8-55); AST (SGOT) 43 U/L (5-34); Albumin 3.8 g/dL (3.5-5.0); Alkaline Phosphatase 152 U/L (40-110); Anion Gap 15 mmol/L (10-20); BUN (Urea Nitrogen) 15 mg/dL (9.8-20.1); Bilirubin, Total 0.5 mg/dL (0.2-1.2); Calc. Creatinine Clearance 0 mL/min (70-130); Calcium 9.9 mg/dL (7.8-10.44); Carbon Dioxide 22 mmol/L (22-29); Chloride 107 mmol/L (98-107); Estimated GFR 87; Globulin 3.6 g/dL (2.4-3.5); Glucose 91 mg/dL (70-105); Potassium 4.6 mmol/L (3.5-5.1); Protein, Total 7.4 g/dL (6.0-8.3); Sodium 139 mmol/L (136-145)
[2023-01-12 23:44] LABS: Lipase 167 U/L (8-78)
[2023-01-13] MEDS ORDERED: Acetaminophen 325 MG TAB PO PRN ×2 (00:34→01:12)
[2023-01-13] MEDS ORDERED: Ibuprofen 800 MG TAB PO PRN (00:40)
[2023-01-13] MEDS ORDERED: Melatonin 3 MG TAB PO PRN (00:40)
[2023-01-13] MEDS ORDERED: Nitroglycerin 0.4 MG TAB (25 Tab Bottle) SL PRN ×2 (00:41→01:12)
[2023-01-13] MEDS ORDERED: Acetaminophen 325 MG TAB PO SCH (00:43)
[2023-01-13] MEDS ORDERED: Lidocaine 2% Viscous Solution 10 ML, Aluminum & Magnesium Hydroxide 30 ML SSW SCH (00:45)
[2023-01-13 01:02] VITALS: BMI 38.0
[2023-01-13] MEDS ORDERED: Ondansetron ORAL SOLN. 4 MG/5 ML UDCUP PO PRN (01:18)
[2023-01-13] MEDS ORDERED: Ketorolac Tromethamine 30 MG/ML VIAL IVP SCH (01:20)
[2023-01-13] MEDS: Ondansetron ODT 4 MG TAB PO PRN ×2 (01:43→10:05)
[2023-01-13 04:16] LABS: #Eosinphils 0.4 thou/uL (0.0-0.7); #Monocytes 0.6 thou/uL (0.11-0.59); #Neutrophils 3.6 thou/uL (1.40-6.50); %Basophils 0.6 % (0.0-1.0); %Eosinophils 5.2 % (0.0-10.0); %Lymphocytes 31.9 % (21.0-51.0); %Monocytes 8.5 % (0.0-10.0); %Neutrophils 53.5 % (42.0-75.0); Hemoglobin 11.4 g/dL (12.0-16.0); Mean Corpuscular HGB CONC 32.5 g/dL (32.0-36.0); Mean Corpuscular Hemoglobin 29.9 pg (27.0-31.0); Mean Corpuscular Volume 92.1 fl (78.0-98.0); Mean Platelet Volume 10.6 fL (7.4-10.4); Platelet Count 250 10x3/uL (130-400); Red Blood Cell (RBC) Count 3.81 mill/uL (4.20-5.40); White Blood Cell (WBC) Count 6.7 10x3/uL (4.8-10.8)
[2023-01-13 04:37] LABS: Anion Gap 12 mmol/L (10-20); BUN (Urea Nitrogen) 16 mg/dL (9.8-20.1); Calc. Creatinine Clearance 113 mL/min (70-130); Calcium 9.3 mg/dL (7.8-10.44); Carbon Dioxide 24 mmol/L (22-29); Chloride 106 mmol/L (98-107); Estimated GFR 87; Glucose 89 mg/dL (70-105); Potassium 3.9 mmol/L (3.5-5.1); Sodium 138 mmol/L (136-145)
[2023-01-13 04:48] LABS: Troponin I Less than 0.010 ng/mL (< 0.028)
[2023-01-13 07:44] VITALS: TEMP 97.8
[2023-01-13] MEDS ORDERED: metFORMIN 500 MG TAB PO SCH (08:00)
[2023-01-13 08:20] LABS: Troponin I Less than 0.010 ng/mL (< 0.028)
[2023-01-13] MEDS ORDERED: Aspirin Chewable 81 MG TAB PO SCH (09:00)
[2023-01-13] MEDS ORDERED: Venlafaxine XR 37.5 MG CAP PO SCH (09:00)
[2023-01-13] MEDS ORDERED: Gabapentin 300 MG CAP PO SCH (09:00)
[2023-01-13] MEDS ORDERED: SEMAGLUTIDE 0.25 MG/0.4 ML SC SCH (09:00)
[2023-01-13] MEDS ORDERED: Lisinopril 10 MG TAB PO SCH (09:00)
[2023-01-13] MEDS ORDERED: Atorvastatin Calcium 40 MG TAB PO SCH (09:00)
[2023-01-13] MEDS ORDERED: Fluticasone Propionate Nasal Spray 16 gm Bottle NASAL SCH (09:00)
[2023-01-13] MEDS ORDERED: Acetaminophen 500 MG TAB PO SCH (09:45)
[2023-01-13 12:52] VITALS: BP 102/60
[2023-01-13] MEDS ORDERED: hydrOXYzine 25 MG TAB PO SCH (21:00)
== END 2023-01-13 12:07 | disposition home or self-care (01) ==
LOC: ERS 21:12 → 2SE 23:48
PROVIDERS: ADMIT Family Medicine; ATTEND Family Medicine
DX: R07.9 Chest pain, unspecified (principal); I10 Essential (primary) hypertension; E78.5 Hyperlipidemia, unspecified; G47.33 Obstructive sleep apnea (adult) (pediatric); F41.8 Other specified anxiety disorders; Z86.73 Personal history of transient ischemic attack (TIA), and cerebral infarction without residual deficits; Z88.1 Allergy status to other antibiotic agents; Z79.82 Long term (current) use of aspirin; Z79.899 Other long term (current) drug therapy; Z90.49 Acquired absence of other specified parts of digestive tract; Z90.710 Acquired absence of both cervix and uterus
CPT/HCPCS: 36415; 36416; 71045; 80048; 80053; 83690; 83880; 84484; 85025; 93005; 96372; 96374; 96375; 96376; G0378; J1650; J1885; J2270; J2405; Q0162

== ENCOUNTER 2023-03-04 10:17 | Emergency (ER) | payer MEDICARE, BC ==
[2023-03-04] MEDS ORDERED: Ketorolac Tromethamine 30 MG/ML VIAL ONE (12:47)
[2023-03-04] MEDS ORDERED: Methocarbamol 500 MG TAB PO SCH (13:00)
[2023-03-04] MEDS ORDERED: Ondansetron PF 4 MG/2 ML Vial ONE (14:36)
[2023-03-04] MEDS ORDERED: Morphine 4 MG/ML VIAL ONE (14:36)
== END 2023-03-04 15:53 | disposition home or self-care (01) ==
LOC: ERS 10:17
DX: M25.551 Pain in right hip (principal); E11.9 Type 2 diabetes mellitus without complications; I10 Essential (primary) hypertension; Z86.73 Personal history of transient ischemic attack (TIA), and cerebral infarction without residual deficits; K21.9 Gastro-esophageal reflux disease without esophagitis; Z79.899 Other long term (current) drug therapy; Z79.84 Long term (current) use of oral hypoglycemic drugs; Z79.82 Long term (current) use of aspirin
CPT/HCPCS: 70450; 72192; 96374; 96375; J1885; J2270; J2405

== ENCOUNTER 2023-04-26 09:19 | Outpatient (CLI) | payer OTHER | END 2023-04-26 09:20 | disposition home or self-care (01) | LOC: BICMRI 09:19 | PROVIDERS: ATTEND Family Medicine | DX: S76.011D Strain of muscle, fascia and tendon of right hip, subsequent encounter (principal); S43.50XA Sprain of unspecified acromioclavicular joint, initial encounter; M70.61 Trochanteric bursitis, right hip; M19.011 Primary osteoarthritis, right shoulder; R93.6 Abnormal findings on diagnostic imaging of limbs ==

== ENCOUNTER 2024-01-13 12:54 | Emergency (ER) | payer BC, OTHER ==
[2024-01-13] MEDS ORDERED: Ketorolac Tromethamine 30 MG (1 mL) VIAL ONE (14:01)
== END 2024-01-13 14:13 | disposition home or self-care (01) ==
LOC: ERS 12:54
DX: M25.551 Pain in right hip (principal); G89.29 Other chronic pain; I10 Essential (primary) hypertension; E11.9 Type 2 diabetes mellitus without complications; Z87.891 Personal history of nicotine dependence; Z86.73 Personal history of transient ischemic attack (TIA), and cerebral infarction without residual deficits
CPT/HCPCS: 96372; J1885

== ENCOUNTER 2024-04-27 09:00 | Inpatient (IN) | payer MEDICARE ==
[2024-04-27 09:31] LABS: #Basophils 0.07 10x3/uL (0.0-0.2); %Basophils 1.3 % (0.0-1.0); %Eosinophils 2.2 % (0.0-10.0); %Lymphocytes 45.7 % (21.0-51.0); %Neutrophils 42.6 % (42.0-75.0); Hematocrit 33.1 % (36.0-47.0); Hemoglobin 11.1 g/dL (12.0-16.0); Mean Corpuscular HGB CONC 33.5 g/dL (32.0-36.0); Mean Corpuscular Hemoglobin 29.7 pg (27.0-31.0); Mean Corpuscular Volume 88.5 fL (78.0-98.0); Platelet Count 322 10x3/uL (130-400); Red Blood Cell (RBC) Count 3.74 mill/uL (4.20-5.40)
[2024-04-27 09:49] LABS: ALT (SGPT) 23 U/L (8-55); AST (SGOT) 41 U/L (5-34); Albumin 3.5 g/dL (3.5-5.0); Anion Gap 14 mmol/L (10-20); BUN (Urea Nitrogen) 6 mg/dL (9.8-20.1); Bilirubin, Total 0.9 mg/dL (0.2-1.2); Calc. Creatinine Clearance 0 mL/min (70-130); Calcium 9.1 mg/dL (7.8-10.44); Carbon Dioxide 21 mmol/L (22-29); Chloride 109 mmol/L (98-107); Estimated GFR 90; Globulin 3.8 g/dL (2.4-3.5); Glucose 114 mg/dL (70-105); Lipase 34 U/L (8-78); Protein, Total 7.3 g/dL (6.0-8.3); Sodium 140 mmol/L (136-145)
[2024-04-27 09:54] LABS: Troponin I Less than 0.010 ng/mL (< 0.028)
[2024-04-27] MEDS ORDERED: Lorazepam 2 MG/ML VIAL ONE (10:03)
[2024-04-27] MEDS ORDERED: levETIRAcetam 500 MG (5 mL) VIAL ONE (10:10)
[2024-04-27 11:34] LABS: Alkaline Phosphatase 118 U/L (40-110)
[2024-04-27] MEDS ORDERED: Iopamidol-370 76% 500 ML MDV (1 ML CHARGE) ONE (13:15)
[2024-04-27] MEDS: Ondansetron PF 4 MG/2 ML Vial IVP SCH (13:30)
[2024-04-27 13:33] LABS: Phosphorus 2.2 mg/dL (2.3-4.7)
[2024-04-27] MEDS ORDERED: Ondansetron PF 4 MG/2 ML Vial ONE (13:40)
[2024-04-27] MEDS ORDERED: hydrOXYzine 25 MG TAB PO PRN (14:22)
[2024-04-27] MEDS ORDERED: Nitroglycerin 0.4 MG TAB (25 Tab Bottle) SL PRN ×2 (14:22→14:37)
[2024-04-27] MEDS: Gabapentin 300 MG CAP PO SCH (15:49)
[2024-04-27] MEDS ORDERED: metFORMIN 500 MG TAB PO SCH (17:00)
[2024-04-27] MEDS: Ondansetron ODT 4 MG TAB PO PRN (17:09)
[2024-04-27 17:23] LABS: Troponin I Less than 0.010 ng/mL (< 0.028)
[2024-04-27] MEDS: Atorvastatin Calcium 40 MG TAB PO SCH (21:07)
[2024-04-28 03:59] LABS: #Basophils 0.06 10x3/uL (0.0-0.2); %Basophils 1.3 % (0.0-1.0); %Eosinophils 6.9 % (0.0-10.0); %Lymphocytes 43.7 % (21.0-51.0); %Neutrophils 40.1 % (42.0-75.0); Hematocrit 31.7 % (36.0-47.0); Hemoglobin 10.4 g/dL (12.0-16.0); Mean Corpuscular HGB CONC 32.8 g/dL (32.0-36.0); Mean Corpuscular Hemoglobin 29.9 pg (27.0-31.0); Mean Corpuscular Volume 91.1 fL (78.0-98.0); Mean Platelet Volume 10.6 fL (7.4-10.4); Platelet Count 263 10x3/uL (130-400); RBC Distribution Width 13.2 % (11.5-14.5); Red Blood Cell (RBC) Count 3.48 mill/uL (4.20-5.40)
[2024-04-28 04:30] LABS: Anion Gap 10 mmol/L (10-20); BUN (Urea Nitrogen) 11 mg/dL (9.8-20.1); Calc. Creatinine Clearance 106 mL/min (70-130); Calcium 8.6 mg/dL (7.8-10.44); Carbon Dioxide 23 mmol/L (22-29); Chloride 111 mmol/L (98-107); Estimated GFR 99; Glucose 92 mg/dL (70-105); Potassium 3.9 mmol/L (3.5-5.1); Sodium 140 mmol/L (136-145)
[2024-04-28] MEDS ORDERED: Promethazine 25 MG TAB PO PRN ×2 (08:27→12:39)
[2024-04-28] MEDS ORDERED: Metoclopramide HCl 10 MG TAB PO SCH (08:30)
[2024-04-28] MEDS: Lisinopril 5 MG TAB PO SCH (08:46)
[2024-04-28] MEDS: Famotidine 20 MG TAB PO SCH (08:46)
[2024-04-28] MEDS: Aspirin Chewable 81 MG TAB PO SCH (08:46)
[2024-04-28] MEDS: levETIRAcetam 500 MG TAB PO SCH ×2 (08:46→22:01)
[2024-04-28] MEDS: Acetaminophen 500 MG TAB PO SCH (08:47)
[2024-04-28] MEDS: Venlafaxine HCl XR 75 MG CAP PO SCH (08:47)
[2024-04-28] MEDS: PHOS-NAK 1 PKT PACK PO SCH (09:35)
[2024-04-28] MEDS: Promethazine 25 MG TAB PO PRN (13:20)
[2024-04-29 04:35] LABS: #Basophils 0.06 10x3/uL (0.0-0.2); %Basophils 1.4 % (0.0-1.0); %Eosinophils 5.5 % (0.0-10.0); %Lymphocytes 49.4 % (21.0-51.0); %Monocytes 7.8 % (0.0-10.0); %Neutrophils 35.7 % (42.0-75.0); Hematocrit 32.5 % (36.0-47.0); Hemoglobin 10.4 g/dL (12.0-16.0); Mean Corpuscular Hemoglobin 29.5 pg (27.0-31.0); Mean Corpuscular Volume 92.1 fL (78.0-98.0); Mean Platelet Volume 10.4 fL (7.4-10.4); Platelet Count 292 10x3/uL (130-400); RBC Distribution Width 13.1 % (11.5-14.5); Red Blood Cell (RBC) Count 3.53 mill/uL (4.20-5.40)
[2024-04-29 04:51] LABS: Anion Gap 12 mmol/L (10-20); BUN (Urea Nitrogen) 9 mg/dL (9.8-20.1); Calc. Creatinine Clearance 106 mL/min (70-130); Calcium 8.6 mg/dL (7.8-10.44); Carbon Dioxide 23 mmol/L (22-29); Chloride 110 mmol/L (98-107); Estimated GFR 99; Glucose 86 mg/dL (70-105); Potassium 4.1 mmol/L (3.5-5.1); Sodium 141 mmol/L (136-145)
[2024-04-29 05:38] LABS: Phosphorus 4.5 mg/dL (2.3-4.7)
[2024-04-30] MEDS: Lorazepam 2 MG/ML VIAL SLOW IVP PRN (03:52)
[2024-04-30 04:14] LABS: #Basophils 0.05 10x3/uL (0.0-0.2); %Basophils 0.8 % (0.0-1.0); %Lymphocytes 32.9 % (21.0-51.0); %Monocytes 7.5 % (0.0-10.0); %Neutrophils 54.6 % (42.0-75.0); Hematocrit 34.7 % (36.0-47.0); Hemoglobin 11.3 g/dL (12.0-16.0); Mean Corpuscular HGB CONC 32.6 g/dL (32.0-36.0); Mean Corpuscular Hemoglobin 29.7 pg (27.0-31.0); Mean Corpuscular Volume 91.1 fL (78.0-98.0); Mean Platelet Volume 10.1 fL (7.4-10.4); Platelet Count 301 10x3/uL (130-400); RBC Distribution Width 12.9 % (11.5-14.5); Red Blood Cell (RBC) Count 3.81 mill/uL (4.20-5.40)
[2024-04-30 04:55] LABS: Anion Gap 12 mmol/L (10-20); BUN (Urea Nitrogen) 12 mg/dL (9.8-20.1); Calc. Creatinine Clearance 90 mL/min (70-130); Calcium 8.8 mg/dL (7.8-10.44); Carbon Dioxide 25 mmol/L (22-29); Chloride 107 mmol/L (98-107); Estimated GFR 81; Glucose 92 mg/dL (70-105); Potassium 3.9 mmol/L (3.5-5.1); Sodium 140 mmol/L (136-145)
[2024-04-30] MEDS: levETIRAcetam 500 MG TAB PO SCH (20:53)
[2024-05-01 04:00] LABS: #Basophils 0.05 10x3/uL (0.0-0.2); %Basophils 0.7 % (0.0-1.0); %Eosinophils 4.1 % (0.0-10.0); %Lymphocytes 30.5 % (21.0-51.0); %Neutrophils 57.6 % (42.0-75.0); Hemoglobin 10.7 g/dL (12.0-16.0); Mean Corpuscular HGB CONC 32.4 g/dL (32.0-36.0); Mean Corpuscular Hemoglobin 30.1 pg (27.0-31.0); Mean Platelet Volume 10.1 fL (7.4-10.4); Platelet Count 298 10x3/uL (130-400); RBC Distribution Width 12.9 % (11.5-14.5); Red Blood Cell (RBC) Count 3.55 mill/uL (4.20-5.40)
[2024-05-01] MEDS: Lorazepam 2 MG/ML VIAL SLOW IVP PRN (04:10)
[2024-05-01 04:19] LABS: Anion Gap 10 mmol/L (10-20); BUN (Urea Nitrogen) 14 mg/dL (9.8-20.1); Calc. Creatinine Clearance 102 mL/min (70-130); Calcium 8.6 mg/dL (7.8-10.44); Carbon Dioxide 24 mmol/L (22-29); Chloride 107 mmol/L (98-107); Estimated GFR 95; Glucose 89 mg/dL (70-105); Sodium 137 mmol/L (136-145)
[2024-05-01] MEDS: Polyethylene Glycol 3350 17 GM Packet PO PRN (09:23)
[2024-05-01] MEDS: levETIRAcetam 500 MG (5 mL) VIAL SLOW IVP SCH ×2 (12:06→20:21)
[2024-05-01] MEDS: Acetaminophen 325 MG TAB PO PRN (15:56)
[2024-05-01 18:56] LABS: HIV (1/2) Antibody/Antigen NONREACTIVE (NonReactive); HIV 1/2 INDEX 0.06 S/CO (<1.00)
[2024-05-02 04:33] LABS: #Basophils 0.04 10x3/uL (0.0-0.2); %Basophils 0.6 % (0.0-1.0); %Eosinophils 5.5 % (0.0-10.0); %Lymphocytes 30.1 % (21.0-51.0); %Monocytes 8.8 % (0.0-10.0); %Neutrophils 54.9 % (42.0-75.0); Hematocrit 35.2 % (36.0-47.0); Hemoglobin 11.4 g/dL (12.0-16.0); Mean Corpuscular HGB CONC 32.4 g/dL (32.0-36.0); Mean Corpuscular Hemoglobin 29.9 pg (27.0-31.0); Mean Corpuscular Volume 92.4 fL (78.0-98.0); Mean Platelet Volume 10.1 fL (7.4-10.4); Platelet Count 282 10x3/uL (130-400); Red Blood Cell (RBC) Count 3.81 mill/uL (4.20-5.40)
[2024-05-02 04:43] LABS: Anion Gap 11 mmol/L (10-20); BUN (Urea Nitrogen) 12 mg/dL (9.8-20.1); Calc. Creatinine Clearance 114 mL/min (70-130); Calcium 8.9 mg/dL (7.8-10.44); Carbon Dioxide 23 mmol/L (22-29); Chloride 109 mmol/L (98-107); Estimated GFR 105; Glucose 88 mg/dL (70-105); Potassium 4.1 mmol/L (3.5-5.1); Sodium 139 mmol/L (136-145)
[2024-05-02] MEDS: Sertraline 25 MG TAB PO SCH (08:18)
[2024-05-02 11:35] LABS: Syphilis Antibody Nonreactive (Nonreactive); Syphilis Antibody Index 0.26 S/CO (<1.00 Non-Reactive)
[2024-05-02] MEDS: Linaclotide [Linzess] 290 MCG Capsule PO SCH (20:14)
[2024-05-03 05:05] LABS: #Basophils 0.04 10x3/uL (0.0-0.2); %Basophils 0.6 % (0.0-1.0); %Eosinophils 4.3 % (0.0-10.0); %Lymphocytes 28.3 % (21.0-51.0); %Monocytes 8.1 % (0.0-10.0); %Neutrophils 58.4 % (42.0-75.0); Hematocrit 33.1 % (36.0-47.0); Hemoglobin 10.7 g/dL (12.0-16.0); Mean Corpuscular HGB CONC 32.3 g/dL (32.0-36.0); Mean Corpuscular Hemoglobin 30.1 pg (27.0-31.0); Mean Corpuscular Volume 93.2 fL (78.0-98.0); Mean Platelet Volume 10.2 fL (7.4-10.4); Platelet Count 279 10x3/uL (130-400); RBC Distribution Width 13.2 % (11.5-14.5); Red Blood Cell (RBC) Count 3.55 mill/uL (4.20-5.40)
[2024-05-03 05:25] LABS: Anion Gap 13 mmol/L (10-20); BUN (Urea Nitrogen) 14 mg/dL (9.8-20.1); Calc. Creatinine Clearance 99 mL/min (70-130); Calcium 8.8 mg/dL (7.8-10.44); Carbon Dioxide 23 mmol/L (22-29); Chloride 108 mmol/L (98-107); Estimated GFR 96; Glucose 92 mg/dL (70-105); Potassium 3.9 mmol/L (3.5-5.1); Sodium 140 mmol/L (136-145)
[2024-05-03] MEDS: Fioricet 325/50/40 mg Tablet PO PRN (07:45)
[2024-05-03] MEDS: Bisacodyl 5 MG TAB PO PRN (08:39)
[2024-05-04 06:00] LABS: #Basophils 0.03 10x3/uL (0.0-0.2); %Basophils 0.5 % (0.0-1.0); %Eosinophils 5.2 % (0.0-10.0); %Monocytes 7.1 % (0.0-10.0); Hematocrit 32.6 % (36.0-47.0); Hemoglobin 10.5 g/dL (12.0-16.0); Mean Corpuscular HGB CONC 32.2 g/dL (32.0-36.0); Mean Corpuscular Hemoglobin 29.7 pg (27.0-31.0); Mean Corpuscular Volume 92.4 fL (78.0-98.0); Mean Platelet Volume 10.4 fL (7.4-10.4); Platelet Count 297 10x3/uL (130-400); RBC Distribution Width 13.2 % (11.5-14.5); Red Blood Cell (RBC) Count 3.53 mill/uL (4.20-5.40)
[2024-05-04 06:10] LABS: Anion Gap 11 mmol/L (10-20); BUN (Urea Nitrogen) 15 mg/dL (9.8-20.1); Calc. Creatinine Clearance 99 mL/min (70-130); Calcium 8.8 mg/dL (7.8-10.44); Carbon Dioxide 24 mmol/L (22-29); Chloride 109 mmol/L (98-107); Estimated GFR 88; Glucose 135 mg/dL (70-105); Potassium 3.6 mmol/L (3.5-5.1); Sodium 140 mmol/L (136-145)
[2024-05-04] MEDS: Senokot 8.6 MG TAB PO SCH (09:43)
[2024-05-04] MEDS: Polyethylene Glycol 3350 17 GM Packet PO SCH (09:44)
[2024-05-05 00:17] LABS: Bacteria/HPF 3+ HPF (None Seen); Bilirubin Negative (Negative); Blood, Urine 3+ (Negative); CAUTI Indications for Culture Pelvic or flank pain; Clarity Extra Turbid (Clear); Glucose, Urine (Dipstick) Normal (Negative); Ketone, Urine Negative (Negative); Leukocyte 500 Leu/uL (Negative); Nitrite 2+ (Negative); Protein, Urine (Dipstick) 100 mg/dL (Neg-Trace); RBC/HPF Greater than 50 HPF (0-3); Specific Gravity, Urine 1.023 (1.002-1.036); Squamous Epithelial 0-3 HPF (0-3); Urobilinogen Normal mg/dL (Less than 2); WBC/HPF Greater than 50 HPF (0-3)
[2024-05-05 00:20] LABS: Urine Culture Reflex Yes Yes
[2024-05-05 04:48] LABS: #Basophils 0.05 10x3/uL (0.0-0.2); %Basophils 0.8 % (0.0-1.0); %Eosinophils 4.5 % (0.0-10.0); %Lymphocytes 36.1 % (21.0-51.0); %Monocytes 7.5 % (0.0-10.0); %Neutrophils 50.8 % (42.0-75.0); Hematocrit 32.1 % (36.0-47.0); Hemoglobin 10.3 g/dL (12.0-16.0); Mean Corpuscular HGB CONC 32.1 g/dL (32.0-36.0); Mean Corpuscular Hemoglobin 29.9 pg (27.0-31.0); Mean Platelet Volume 10.4 fL (7.4-10.4); Platelet Count 267 10x3/uL (130-400); Red Blood Cell (RBC) Count 3.45 mill/uL (4.20-5.40)
[2024-05-05 04:59] LABS: Anion Gap 9 mmol/L (10-20); BUN (Urea Nitrogen) 16 mg/dL (9.8-20.1); Calc. Creatinine Clearance 111 mL/min (70-130); Calcium 8.5 mg/dL (7.8-10.44); Carbon Dioxide 24 mmol/L (22-29); Chloride 110 mmol/L (98-107); Estimated GFR 101; Glucose 82 mg/dL (70-105); Potassium 3.8 mmol/L (3.5-5.1); Sodium 139 mmol/L (136-145)
[2024-05-06 05:18] LABS: #Basophils 0.06 10x3/uL (0.0-0.2); %Basophils 0.8 % (0.0-1.0); %Eosinophils 4.2 % (0.0-10.0); %Lymphocytes 36.1 % (21.0-51.0); %Monocytes 8.4 % (0.0-10.0); %Neutrophils 50.2 % (42.0-75.0); Hematocrit 30.4 % (36.0-47.0); Hemoglobin 9.7 g/dL (12.0-16.0); Mean Corpuscular HGB CONC 31.9 g/dL (32.0-36.0); Mean Corpuscular Hemoglobin 29.9 pg (27.0-31.0); Mean Corpuscular Volume 93.8 fL (78.0-98.0); Mean Platelet Volume 10.1 fL (7.4-10.4); Platelet Count 262 10x3/uL (130-400); RBC Distribution Width 13.1 % (11.5-14.5); Red Blood Cell (RBC) Count 3.24 mill/uL (4.20-5.40)
[2024-05-06 05:34] LABS: Anion Gap 11 mmol/L (10-20); BUN (Urea Nitrogen) 14 mg/dL (9.8-20.1); Calc. Creatinine Clearance 104 mL/min (70-130); Calcium 8.5 mg/dL (7.8-10.44); Carbon Dioxide 23 mmol/L (22-29); Chloride 112 mmol/L (98-107); Estimated GFR 93; Glucose 87 mg/dL (70-105); Potassium 4.2 mmol/L (3.5-5.1); Sodium 142 mmol/L (136-145)
[2024-05-06 14:41] VITALS: BMI 32.2
[2024-05-06] MEDS: Nitrofurantoin Monohyd/M-Cryst 100 MG CAP PO SCH (20:34)
[2024-05-07 06:04] LABS: #Basophils 0.06 10x3/uL (0.0-0.2); %Basophils 0.8 % (0.0-1.0); %Eosinophils 3.8 % (0.0-10.0); %Lymphocytes 22.1 % (21.0-51.0); %Monocytes 6.5 % (0.0-10.0); %Neutrophils 66.4 % (42.0-75.0); Hematocrit 32.7 % (36.0-47.0); Hemoglobin 10.5 g/dL (12.0-16.0); Mean Corpuscular HGB CONC 32.1 g/dL (32.0-36.0); Mean Corpuscular Hemoglobin 29.7 pg (27.0-31.0); Mean Corpuscular Volume 92.4 fL (78.0-98.0); Mean Platelet Volume 10.2 fL (7.4-10.4); Platelet Count 250 10x3/uL (130-400); RBC Distribution Width 12.8 % (11.5-14.5); Red Blood Cell (RBC) Count 3.54 mill/uL (4.20-5.40)
[2024-05-07 06:14] LABS: Anion Gap 12 mmol/L (10-20); BUN (Urea Nitrogen) 16 mg/dL (9.8-20.1); Calc. Creatinine Clearance 113 mL/min (70-130); Calcium 8.9 mg/dL (7.8-10.44); Carbon Dioxide 21 mmol/L (22-29); Chloride 109 mmol/L (98-107); Estimated GFR 104; Glucose 83 mg/dL (70-105); Potassium 3.9 mmol/L (3.5-5.1); Sodium 138 mmol/L (136-145)
[2024-05-07] MEDS: Sulfameth/Trimethoprim DS 800-160mg TAB PO SCH (20:23)
[2024-05-07] MEDS ORDERED: Sulfameth/Trimethoprim DS 800-160mg TAB PO SCH (21:00)
[2024-05-08 05:39] LABS: #Basophils 0.04 10x3/uL (0.0-0.2); %Basophils 0.7 % (0.0-1.0); %Eosinophils 5.7 % (0.0-10.0); %Lymphocytes 35.5 % (21.0-51.0); %Monocytes 5.7 % (0.0-10.0); %Neutrophils 52.2 % (42.0-75.0); Hematocrit 31.3 % (36.0-47.0); Hemoglobin 10.3 g/dL (12.0-16.0); Mean Corpuscular HGB CONC 32.9 g/dL (32.0-36.0); Mean Corpuscular Hemoglobin 29.7 pg (27.0-31.0); Mean Corpuscular Volume 90.2 fL (78.0-98.0); Mean Platelet Volume 10.7 fL (7.4-10.4); Platelet Count 260 10x3/uL (130-400); RBC Distribution Width 12.8 % (11.5-14.5); Red Blood Cell (RBC) Count 3.47 mill/uL (4.20-5.40)
[2024-05-08 05:55] LABS: Anion Gap 13 mmol/L (10-20); BUN (Urea Nitrogen) 15 mg/dL (9.8-20.1); Calc. Creatinine Clearance 116 mL/min (70-130); Calcium 8.5 mg/dL (7.8-10.44); Carbon Dioxide 18 mmol/L (22-29); Chloride 112 mmol/L (98-107); Estimated GFR 99; Glucose 85 mg/dL (70-105); Sodium 138 mmol/L (136-145)
[2024-05-11 20:44] VITALS: BP 96/72; TEMP 99.3
[2024-05-11] MEDS: levETIRAcetam 500 MG TAB PO SCH (21:11)
== END 2024-05-11 21:45 | DRG 101 ==
LOC: ERS 09:00 → ERHOLD 11:40 → 2SE 15:31 → OBSVTOIN 04-29 11:04 → IMCU/EMU 05-01 19:57 → MSONC 05-03 13:02 → UNDODISIN 05-11 16:24
PROVIDERS: ADMIT Family Medicine; ATTEND Family Medicine
PROC: XX20X89 Monitoring of Brain Electrical Activity, Computer-aided Detection and Notification, New Technology Group 9 (ICD-10-PCS; principal; 2024-04-28)
DX: R56.9 Unspecified convulsions (principal); I69.351 Hemiplegia and hemiparesis following cerebral infarction affecting right dominant side; E78.5 Hyperlipidemia, unspecified; I10 Essential (primary) hypertension; E11.9 Type 2 diabetes mellitus without complications; E66.9 Obesity, unspecified; G47.33 Obstructive sleep apnea (adult) (pediatric); F32.9 Major depressive disorder, single episode, unspecified; F43.10 Post-traumatic stress disorder, unspecified; Z87.891 Personal history of nicotine dependence; Z90.49 Acquired absence of other specified parts of digestive tract; Z90.710 Acquired absence of both cervix and uterus; Z91.040 Latex allergy status; Z68.32 Body mass index [BMI] 32.0-32.9, adult; Z79.82 Long term (current) use of aspirin; Z88.1 Allergy status to other antibiotic agents; Z79.899 Other long term (current) drug therapy; Z79.84 Long term (current) use of oral hypoglycemic drugs; Z79.85 Long-term (current) use of injectable non-insulin antidiabetic drugs; R33.9 Retention of urine, unspecified; K59.00 Constipation, unspecified; R82.71 Bacteriuria
CPT/HCPCS: 36415; 36416; 70450; 71045; 71275; 80048; 80053; 81001; 83690; 83735; 83880; 84100; 84146; 84443; 84484; 85025; 86780; 87077; 87086; 87186; 87389; 93005; 93306; 94760; 95700; 95708; 95711; 95712; 95813; 95957; 96374; G0378; J1953; J2060; J2405; Q0162; Q0169; Q9967

== ENCOUNTER 2024-06-07 08:10 | Emergency (ER) | payer MEDICARE ==
[2024-06-07 10:36] LABS: #Basophils 0.06 10x3/uL (0.0-0.2); %Eosinophils 5.2 % (0.0-10.0); %Lymphocytes 39.9 % (21.0-51.0); %Neutrophils 47.6 % (42.0-75.0); Hematocrit 36.4 % (36.0-47.0); Hemoglobin 12.3 g/dL (12.0-16.0); Mean Corpuscular HGB CONC 33.8 g/dL (32.0-36.0); Mean Corpuscular Hemoglobin 30.1 pg (27.0-31.0); Mean Platelet Volume 11.1 fL (7.4-10.4); Platelet Count 166 10x3/uL (130-400); RBC Distribution Width 13.4 % (11.5-14.5); Red Blood Cell (RBC) Count 4.09 mill/uL (4.20-5.40)
[2024-06-07] MEDS ORDERED: Acetaminophen 500 MG TAB ONE (10:45)
[2024-06-07] MEDS ORDERED: Promethazine HCl 25 MG/ML VIAL ONE (10:46)
[2024-06-07 10:54] LABS: ALT (SGPT) 54 U/L (8-55); AST (SGOT) 68 U/L (5-34); Albumin 3.6 g/dL (3.5-5.0); Alkaline Phosphatase 117 U/L (40-110); Anion Gap 15 mmol/L (10-20); BUN (Urea Nitrogen) 10 mg/dL (9.8-20.1); Bilirubin, Total 0.3 mg/dL (0.2-1.2); Calc. Creatinine Clearance 0 mL/min (70-130); Calcium 9.2 mg/dL (7.8-10.44); Carbon Dioxide 19 mmol/L (22-29); Chloride 110 mmol/L (98-107); Estimated GFR 98; Glucose 81 mg/dL (70-105); Potassium 4.7 mmol/L (3.5-5.1); Protein, Total 7.6 g/dL (6.0-8.3); Sodium 139 mmol/L (136-145)
== END 2024-06-07 13:37 | disposition short-term general hospital (02) ==
LOC: ERS 08:10
DX: R56.9 Unspecified convulsions (principal); E11.9 Type 2 diabetes mellitus without complications; I10 Essential (primary) hypertension; Z87.891 Personal history of nicotine dependence
CPT/HCPCS: 70450; 80053; 80177; 85025; J2550; 36415; 96374

== ENCOUNTER 2024-07-09 05:47 | Emergency (ER) | payer MEDICARE, SELFPAY ==
[2024-07-09] MEDS ORDERED: Acetaminophen 325 MG (10.15 ML) UDCUP ONE (06:18)
[2024-07-09] MEDS ORDERED: Ondansetron ODT 4 MG TAB ONE ×2 (06:18→08:14)
[2024-07-09] MEDS ORDERED: Sodium Chloride 0.9% 100 ML ONE (08:05)
[2024-07-09] MEDS ORDERED: levETIRAcetam 500 MG (5 mL) VIAL ONE (08:06)
[2024-07-09 08:07] LABS: #Basophils 0.06 10x3/uL (0.0-0.2); %Basophils 1.3 % (0.0-1.0); %Eosinophils 9.6 % (0.0-10.0); %Lymphocytes 47.2 % (21.0-51.0); %Monocytes 8.9 % (0.0-10.0); %Neutrophils 32.8 % (42.0-75.0); Hematocrit 33.4 % (36.0-47.0); Hemoglobin 10.7 g/dL (12.0-16.0); Mean Corpuscular Hemoglobin 29.7 pg (27.0-31.0); Mean Corpuscular Volume 92.8 fL (78.0-98.0); Platelet Count 131 10x3/uL (130-400); RBC Distribution Width 15.9 % (11.5-14.5)
[2024-07-09 08:50] LABS: PTT 23.2 sec (22.9-36.1)
[2024-07-09 08:51] LABS: Prothrombin Time 13.2 sec (12.0-14.7)
[2024-07-09] MEDS ORDERED: Promethazine HCl 25 MG/ML VIAL ONE (08:51)
[2024-07-09 09:04] LABS: ALT (SGPT) 76 U/L (8-55); AST (SGOT) 107 U/L (5-34); Albumin 3.2 g/dL (3.5-5.0); Alkaline Phosphatase 141 U/L (40-110); Anion Gap 12 mmol/L (10-20); BUN (Urea Nitrogen) 10 mg/dL (9.8-20.1); Bilirubin, Total 0.3 mg/dL (0.2-1.2); CK (CPK) 163 U/L (29-168); Calc. Creatinine Clearance 0 mL/min (70-130); Calcium 8.8 mg/dL (7.8-10.44); Carbon Dioxide 19 mmol/L (22-29); Chloride 113 mmol/L (98-107); Estimated GFR 104; Globulin 3.6 g/dL (2.4-3.5); Glucose 74 mg/dL (70-105); Protein, Total 6.8 g/dL (6.0-8.3); Sodium 140 mmol/L (136-145)
[2024-07-09 09:34] LABS: Bacteria/HPF None Seen HPF (None Seen); Bilirubin Negative (Negative); Blood, Urine Negative (Negative); CAUTI Indications for Culture Pelvic or flank pain; Clarity Clear (Clear); Glucose, Urine (Dipstick) Normal (Negative); Ketone, Urine Negative (Negative); Leukocyte 25 Leu/uL (Negative); Nitrite Negative (Negative); Protein, Urine (Dipstick) Negative (Neg-Trace); RBC/HPF 0-3 HPF (0-3); Specific Gravity, Urine 1.007 (1.002-1.036); Squamous Epithelial 0-3 HPF (0-3); Urobilinogen Normal mg/dL (Less than 2); WBC/HPF 0-3 HPF (0-3)
[2024-07-09 09:36] LABS: Urine Culture Reflex No No
[2024-07-09 11:10] LABS: Troponin I 0.016 ng/mL (< 0.028)
== END 2024-07-09 12:00 | disposition home or self-care (01) ==
LOC: ERS 05:47
DX: R56.9 Unspecified convulsions (principal); I10 Essential (primary) hypertension; E11.9 Type 2 diabetes mellitus without complications; K21.9 Gastro-esophageal reflux disease without esophagitis; Z79.82 Long term (current) use of aspirin; Z79.84 Long term (current) use of oral hypoglycemic drugs; Z79.899 Other long term (current) drug therapy; Z86.73 Personal history of transient ischemic attack (TIA), and cerebral infarction without residual deficits; Z87.891 Personal history of nicotine dependence
CPT/HCPCS: 70450; 71045; 80053; 80177; 81001; 82550; 83605; 84146; 84484 ×2; 85025; 85610; 85730; 93005; 94760; 96365; 96367; 99285; J1953; J2550; Q0162; 36415